=== PATIENT | female | born 1975 ===

== ENCOUNTER → 2020-10-27 09:34 | Outpatient (BNVA) | payer MEDICAID, SELFPAY | PROVIDERS: PCP Internal Medicine; Visit Provider Student in an Organized Health Care Education/Training Program | DX: Z76.89 Persons encountering health services in other specified circumstances (principal) ==

== ENCOUNTER 2021-01-18 09:14 | Outpatient (REF) | payer MEDICAID, SELFPAY ==
[2021-01-18 10:11] LABS: MANUAL DIFF FLAG NO
[2021-01-18 10:14] LABS: Basophils Absolute Auto 0.1 X10*3/uL (0.0-0.2); Basophils Percent Auto 1.1 % (0-2); Eosinophils Absolute Auto 0.2 X10*3/uL (0.0-0.4); Eosinophils Percent Auto 3.5 % (0-4); Hematocrit 34.8 % (37-47); Hemoglobin 12.4 g/dl (12.0-16.0); Imm Gran Abs Auto 0.02 X10*3/uL (0.00-0.03); Imm Gran Pct Auto 0.3 % (0.0-0.4); Lymphocytes Absolute Auto 1.9 X10*3/uL (1.2-4.9); Mean Corpuscular HGB Conc 35.6 g/dl (31.0-35.0); Mean Corpuscular Hemoglobin 26.7 pg (27.0-33.0); Mean Platelet Volume 10.6 fL (9.4-12.3); Monocytes Absolute Auto 0.5 X10*3/uL (0.1-1.2); Monocytes Percent Auto 7.6 % (2-11); Neutrophils Absolute Auto 3.8 X10*3/uL (2.0-8.3); Neutrophils Percent Auto 58.5 % (45-73); Platelet Count 312 X10*3/uL (160-400); Red Blood Count 4.64 X10*6/uL (4.20-5.50); Red Cell Distribution Width 12.8 % (11.0-16.0); White Blood Count 6.6 X10*3/uL (4.8-10.8)
[2021-01-18 10:53] LABS: Erythrocyte Sedimentation Rate 12 MM/HR (0-20)
[2021-01-18 10:56] LABS: Glucose Urine UA NEG (NEG); Leukocyte Esterase Urine NEG (NEG); Nitrite Urine NEG (NEG); PH 6.5 (5.0-8.0); Urine Blood NEG (NEG); Urine Ketones NEG (NEG); Urine Protein NEG (NEG-TRACE)
[2021-01-18 10:58] LABS: Alanine Aminotransferase 15 U/L (0-31); Albumin Level 4.5 g/dL (3.5-5.0); Alkaline Phosphatase 109 U/L (39-117); Anion Gap 10 (12-20); Aspartate Amino Transferase 17 U/L (5-31); Bilirubin Total 0.2 mg/dL (0.0-1.0); Blood Urea Nitrogen 11 mg/dL (9-16); C Reactive Protein 0.23 mg/dL (< or = 0.50); Calcium 9.6 mg/dL (8.4-10.2); Carbon Dioxide 27 mmol/L (22-29); Chloride 105 mmol/L (96-108); Estimated Glomerular Filt Rate > 60; Glucose Random 91 mg/dL (60-115); Potassium 4.2 mmol/L (3.3-5.1); Sodium 138 mmol/L (135-145); Total Protein 8.1 g/dL (6.5-8.0)
[2021-01-18 10:59] LABS: Appearance Urine CLEAR; Color Urine YELLOW
[2021-01-18 11:16] LABS: Mucus Urine 1+ /LPF; RBC Urine 0 /HPF (0); Squamous Epithelial Cell Urine 1+ /LPF; WBC Urine 0 /HPF (0-4)
[2021-01-19 14:16] LABS: Complement C3 134 mg/dL (83-193)
[2021-01-21 13:46] LABS: Anti DNA DS Antibody 7 IU/mL
== END 2021-01-18 09:15 | disposition home or self-care (01) ==
LOC: HO.LAB 09:14
PROVIDERS: PCP Internal Medicine; Visit Provider Student in an Organized Health Care Education/Training Program
DX: M32.9 Systemic lupus erythematosus, unspecified (principal)
CPT/HCPCS: 36415; 80053; 81001; 85025; 85652; 86140; 86160; 86225

== ENCOUNTER 2021-01-31 12:41 | Outpatient (REF) | payer MEDICAID, SELFPAY ==
--- NOTE | ~2021-01-31 | XR_ITS ---
EXAMINATION: XR LUMBOSACRAL SPINE CLINICAL INFORMATION: Low back pain. COMPARISON: 05/16/2015 lumbar spine radiographs. TECHNIQUE: Three views of the lumbosacral spine. FINDINGS: The vertebral bodies and posterior elements are normal. The disc spaces are preserved and the vertebral alignment is normal. The paraspinal soft tissues are normal. Surgical clips overlie the right upper quadrant. XR/XR lumbar spine 2-3V IMPRESSION: Unremarkable examination. No significant interval change.
--- NOTE | ~2021-01-31 | XR_ITS ---
EXAMINATION: XR WRIST, LEFT CLINICAL INFORMATION: SLE. COMPARISON: None TECHNIQUE: PA, lateral, and oblique views of the left wrist. FINDINGS: The bones and soft tissues are normal. No fracture. Alignment is anatomic with normal joint spaces. No erosions or abnormal soft tissue calcifications. XR/XR wrist LT 2V IMPRESSION: Unremarkable left wrist.
== END 2021-01-31 12:42 | disposition home or self-care (01) ==
LOC: HO.XRAY 12:41
PROVIDERS: PCP Internal Medicine; Visit Provider Student in an Organized Health Care Education/Training Program
DX: M32.9 Systemic lupus erythematosus, unspecified (principal); M47.816 Spondylosis without myelopathy or radiculopathy, lumbar region; G56.03 Carpal tunnel syndrome, bilateral upper limbs; Z79.899 Other long term (current) drug therapy
CPT/HCPCS: 72100; 73100; 99212

== ENCOUNTER 2021-02-06 12:07 | Outpatient (REF) | payer MEDICAID, SELFPAY ==
--- NOTE | ~2021-02-06 | MM_ITS ---
EXAMINATION: MM SCREENING DIGITAL BREAST TOMOSYNTHESIS, BILATERAL CLINICAL INFORMATION: Screening. Asymptomatic. The lifetime risk of breast cancer based on the Tyrer-Cuzick Model is 7%. COMPARISON: Mammography: 07/03/2020, 01/26/2019, 01/23/2018, 01/30/2017 TECHNIQUE: Digital breast tomosynthesis is performed in both the craniocaudal and mediolateral oblique views along with computer-aided detection (CAD). Synthesized 2D images are generated from the tomosynthesis. FINDINGS: There are scattered areas of fibroglandular density (ACR BI-RADS breast composition Category b). There are no significant masses, abnormal calcifications, or other abnormalities. Parenchymal pattern is similar studies. No developing density. No significant changes. MM/MM tomosynthesis screening BI IMPRESSION: No mammographic evidence of malignancy. ASSESSMENT: BI-RADS 1: Negative RECOMMENDATION: Routine annual mammography screening. This patient's information was entered into a reminder system with a target due date for their next mammogram.
== END 2021-02-06 12:08 | disposition home or self-care (01) ==
LOC: HO.MAMMO 12:07
PROVIDERS: Visit Provider Internal Medicine
DX: Z12.31 Encounter for screening mammogram for malignant neoplasm of breast (principal)
CPT/HCPCS: 77063; 77067

== ENCOUNTER 2021-03-06 11:05 | Outpatient (REF) | payer MEDICAID, SELFPAY ==
[2021-03-06 11:41] LABS: COVID-19 Test Positive (Negative)
== END 2021-03-06 11:06 | disposition home or self-care (01) ==
LOC: HO.LAB 11:05
PROVIDERS: Visit Provider Internal Medicine
DX: Z20.822 Contact with and (suspected) exposure to COVID-19 (principal)
CPT/HCPCS: 36415; 87635; C9803

== ENCOUNTER 2021-05-03 08:27 | Outpatient (REF) | payer MEDICAID, SELFPAY ==
[2021-05-03 09:27] LABS: Glucose Urine UA NEG (NEG); Leukocyte Esterase Urine NEG (NEG); Nitrite Urine NEG (NEG); Specific Gravity - Urine <= 1.005 (1.005-1.025); Urine Blood NEG (NEG); Urine Ketones NEG (NEG); Urine Protein NEG (NEG-TRACE)
[2021-05-03 09:29] LABS: MANUAL DIFF FLAG NO
[2021-05-03 09:31] LABS: Appearance Urine CLEAR; Color Urine YELLOW
[2021-05-03 09:34] LABS: RBC Urine 0 /HPF (0); Squamous Epithelial Cell Urine 1+ /LPF; WBC Urine 0-2 /HPF (0-4)
[2021-05-03 09:37] LABS: Basophils Absolute Auto 0.1 X10*3/uL (0.0-0.2); Basophils Percent Auto 1.1 % (0-2); Eosinophils Absolute Auto 0.3 X10*3/uL (0.0-0.4); Eosinophils Percent Auto 4.4 % (0-4); Hematocrit 33.7 % (37-47); Hemoglobin 11.8 g/dl (12.0-16.0); Imm Gran Abs Auto 0.02 X10*3/uL (0.00-0.03); Imm Gran Pct Auto 0.3 % (0.0-0.4); Lymphocytes Absolute Auto 1.6 X10*3/uL (1.2-4.9); Lymphocytes Percent Auto 23.5 % (20-40); Mean Corpuscular Hemoglobin 26.5 pg (27.0-33.0); Mean Corpuscular Volume 75.7 fL (80-98); Mean Platelet Volume 10.8 fL (9.4-12.3); Monocytes Absolute Auto 0.5 X10*3/uL (0.1-1.2); Monocytes Percent Auto 7.4 % (2-11); Neutrophils Absolute Auto 4.2 X10*3/uL (2.0-8.3); Neutrophils Percent Auto 63.3 % (45-73); Platelet Count 290 X10*3/uL (160-400); Red Blood Count 4.45 X10*6/uL (4.20-5.50); Red Cell Distribution Width 12.7 % (11.0-16.0); White Blood Count 6.6 X10*3/uL (4.8-10.8)
[2021-05-03 10:15] LABS: Alanine Aminotransferase 10 U/L (0-31); Albumin Level 4.1 g/dL (3.5-5.0); Alkaline Phosphatase 109 U/L (39-117); Anion Gap 12 (12-20); Aspartate Amino Transferase 16 U/L (5-31); Bilirubin Total 0.2 mg/dL (0.0-1.0); Blood Urea Nitrogen 9 mg/dL (9-16); C Reactive Protein 0.34 mg/dL (< or = 0.50); Calcium 9.6 mg/dL (8.4-10.2); Carbon Dioxide 25 mmol/L (22-29); Chloride 107 mmol/L (96-108); Estimated Glomerular Filt Rate > 60; Glucose Random 80 mg/dL (60-115); Potassium 4.1 mmol/L (3.3-5.1); Sodium 140 mmol/L (135-145); Total Protein 7.4 g/dL (6.5-8.0)
[2021-05-03 10:37] LABS: Erythrocyte Sedimentation Rate 12 MM/HR (0-20)
[2021-05-04 13:06] LABS: Anti DNA DS Antibody 5 IU/mL
[2021-05-05 22:03] LABS: Complement C3 46 mg/dL (83-193)
== END 2021-05-03 08:28 | disposition home or self-care (01) ==
LOC: HO.LAB 08:27
PROVIDERS: PCP Internal Medicine; Visit Provider Student in an Organized Health Care Education/Training Program
DX: M32.9 Systemic lupus erythematosus, unspecified (principal); Z79.899 Other long term (current) drug therapy
CPT/HCPCS: 36415; 80053; 81001; 85025; 85652; 86140; 86160; 86225; 99212

== ENCOUNTER 2021-09-15 10:32 | Emergency (ER) | payer MEDICAID, SELFPAY ==
--- NOTE | ~2021-09-15 | XR_ITS ---
EXAMINATION: XR RIBS, LEFT CLINICAL INFORMATION: Lifting injury 2 weeks ago. Left anterior rib pain. COMPARISON: Chest and contralateral right rib radiographs 03/11/2014 TECHNIQUE: Frontal view chest and 3 views left ribs are obtained for a total of 4 views. FINDINGS: The left ribs appear intact with no visible rib fracture or rib destructive process. Bony mineralization appears normal. There is no pneumothorax, pleural reaction, infiltrate, or effusion. The cardiac and hilar and mediastinal contours are normal. XR/XR ribs LT min 3V w CXR1V IMPRESSION: No rib fracture or rib destructive process. No pneumothorax, pleural reaction, or effusion.
[2021-09-15 11:06] VITALS: BP 139/91; PULSE 70; RESP 16; TEMP 36; O2SAT 97; BMI 24.5
--- NOTE | 2021-09-15 11:45 | ED.GENADULT ---
HPI - General Adult General Chief complaint: General Medical Stated complaint: upper lt abd & back pain Time Seen by Provider: 09/15/21 11:45 Source: patient Mode of arrival: ambulatory Limitations: no limitations History of Present Illness HPI narrative: 45 y/o female presenting to the ER with 3 days of left sided middle back pain and left lower rib pain. She denies any trauma or any recent falls. 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 [employer] and does a lot of heavy lifting and twisting, she thinks that 4 days ago she twisted wrong when holding a package. That night is when her left side started to hurt. She has been taking intermittent Motrin with no improvement. She reports the pain is worse with deep breaths and any lateral movement. She has no associated urinary symptoms. She has no nausea, vomiting, diarrhea, abdominal pain, shortness of breath, chest pain. MD complaint: Left-sided lower rib pain Onset (ago): day(s) (3) Location: chest and back Radiation: abdomen (Left lower rib, left upper quadrant) Severity: moderate Severity scale (1-10): 5 Quality: stabbing and aching Pain Consistency: intermittent Relieving factors: rest Exacerbating factors: movement and other (Deep breaths) Associated symptoms: denies other symptoms Treatments prior to arrival: none Related Data Home Medications Medication Instructions Recorded Confirmed acetaminophen 650 mg 650 mg PO Q8H PRN 10/27/20 10/27/20 tablet,extended release albuterol sulfate 90 mcg/actuation 2 puff INHALATION Q6H PRN 10/27/20 10/27/20 aerosol inhaler bupropion HCl 150 mg tablet,12 hr 150 mg PO DAILY 10/27/20 10/27/20 sustained-release clonazepam 0.5 mg tablet 0.5 mg PO BEDTIME 10/27/20 10/27/20 fluticasone propionate 110 1 puff INHALATION BID 10/27/20 10/27/20 mcg/actuation HFA aerosol inhaler (Flovent HFA) loratadine 10 mg capsule 10 mg PO DAILY 10/27/20 10/27/20 oxcarbazepine 600 mg tablet 600 mg PO BID 10/27/20 10/27/20 propranolol 20 mg tablet 20 mg PO BID 10/27/20 10/27/20 zolpidem 10 mg tablet 10 mg PO BEDTIME PRN 10/27/20 10/27/20 sertraline 50 mg tablet 50 mg PO DAILY 05/03/21 Previous Rx's Medication Instructions Recorded cyclobenzaprine 5 mg tablet 5 mg PO BEDTIME PRN #30 tab 05/03/21 hydroxychloroquine 200 mg tablet 200 mg PO DAILY #90 tab 05/03/21 (Plaquenil) cyclobenzaprine 10 mg tablet 10 mg PO TID PRN #10 tab 09/15/21 hydrocodone 5 mg-acetaminophen 325 1 tab PO Q8H PRN #6 tab 09/15/21 mg tablet ibuprofen 600 mg tablet 600 mg PO Q8H PRN #20 tab 09/15/21 lidocaine 5 % topical patch 1 patch TOPICAL DAILY #15 ea 09/15/21 Allergies Allergy/AdvReac Type Severity Reaction Status Date / Time apple [Apple] Allergy Severe THROAT Verified 05/03/21 09:11 SWELLS tree nut [Tree Nut] Allergy Severe SWELLING Verified 05/03/21 09:11 Review of Systems Review of Systems: Constitutional: No Fever, No Chills ENT/Mouth: No sore throat, No Rhinorrhea, No Swallowing Difficulty Cardiovascular: No Chest Pain, No SOB Respiratory: No Cough, No Sputum, No Wheezing, No dyspnea Gastrointestinal: No Nausea, No Vomiting, No Diarrhea, No abdominal Pain Genitourinary: No Dysuria, No Urinary Frequency, No Hematuria Musculoskeletal: No joint pain, + Myalgias Skin: No Skin Lesions, No rash Neuro: No Weakness, No Numbness Psych: No Anxiety/Panic, No Depression Heme/Lymph: No Bruising, No Lymphadenopathy PMFSH Past Medical History Medical History Lupus Social History Social History (Updated 05/03/21 @ 09:14 by Ascencion Toussaint LPN) Alcohol intake: never Patient Tobacco Use Status: Former Tobacco user Cigarettes Per Day: 7 Years Smoked: 15 e-Cigarette/Vaping Use: Never Used Use of substances other than those prescribed or required for medical reasons: No Advance Directives: No Physical Exam Vital Signs: Vital Signs: Last Vital Signs Temp 98.9 F 09/15/21 11:54 Pulse 66 09/15/21 12:11 Resp 18 09/15/21 12:11 BP 127/63 09/15/21 12:11 Pulse Ox 99 09/15/21 12:11 Body Mass Index 24.5 Appearance: Alert. Oriented X3. No acute distress. Eyes: Pupils equal, round and reactive to light. ENT: Pharynx normal. Neck: Normal inspection. Neck supple. CVS: Normal heart rate and rhythm. Pulses normal. Respiratory: No respiratory distress. Breath sounds normal. Anterior chest wall lower anterior ribs are tender with associated soft tissue tenderness no ecchymosis, no crepitus Abdomen: Soft and nontender. +BS x4. No left upper quadrant tenderness, no splenomegaly Back: Normal inspection, left-sided thoracic soft tissue tenderness throughout, no ecchymosis, no CVA tenderness. Skin: Skin warm and dry. Normal skin color. Normal skin turgor. No rashes. Extremities: No lower extremity edema. Neuro: Oriented X 3. Grossly normal, nonfocal Course Course Course Narrative: 45-year-old female presenting with left-sided thoracic back pain that radiates around to her left anterior lower ribs. Pain is worse with movement and deep breath. She states the pain started after lifting and twisting while working at [employer]. She is not short of breath, or having any urinary symptoms. No palpable splenomegaly on exam. Will start with x-ray of the chest and ribs, and treat for probable muscular pain with NSAID, Flexeril, and Lidoderm patch. Will reassess. Reevaluation(s) Reevaluation #1: Pain is slightly improved. Her x-rays are unremarkable. Her pain and tenderness is most likely due to muscle strain and spasm. Will continue treatment with NSAID, Flexeril, and Lidoderm patches. Will give short course of low-dose narcotic for pain that is disrupting her sleep. She will follow-up with her primary care doctor. Work note provided per request. Patient stable for discharge home with supportive care and outpatient follow-up. Discharge Plan Discharge Clinical Impression: Acute left-sided thoracic back pain, Muscle spasm Patient Disposition: Home, Self-Care Instructions: Muscle Spasm (ED), Back Pain (ED) Additional Instructions: Your x-rays today were normal. Your pain is most likely due to muscle strain and spasm. No bending, lifting or twisting. Use ice several times per day for 20 minutes at a time for the next 48 hours and then change to heat. Take medications as prescribed to help with pain and discomfort. Follow up with your Primary Care Doctor this week. If your pain worsens or if you develop any new or worsening symptoms call 911 or come back to the ER for further evaluation. Prescriptions: New cyclobenzaprine 10 mg tablet 10 mg PO TID PRN (Reason: muscle spasm) Qty: 10 RF: 0 lidocaine 5 % adhesive patch,medicated 1 patch topical DAILY Qty: 15 RF: 0 ibuprofen 600 mg tablet 600 mg PO Q8H PRN (Reason: pain) Qty: 20 RF: 0 hydrocodone-acetaminophen 5-325 mg tablet 1 tab PO Q8H PRN (Reason: pain) Qty: 6 RF: 0 No Action propranolol 20 mg tablet 20 mg PO BID RF: 0 Flovent HFA 110 mcg/actuation HFA aerosol inhaler 1 puff inhalation BID RF: 0 clonazepam 0.5 mg tablet 0.5 mg PO BEDTIME RF: 0 oxcarbazepine 600 mg tablet 600 mg PO BID RF: 0 albuterol sulfate 90 mcg/actuation HFA aerosol inhaler 2 puff inhalation Q6H PRNRF: 0 loratadine 10 mg capsule 10 mg PO DAILY RF: 0 zolpidem 10 mg tablet 10 mg PO BEDTIME PRNRF: 0 bupropion HCl 150 mg tablet sustained-release 12 hr 150 mg PO DAILY RF: 0 acetaminophen 650 mg tablet extended release 650 mg PO Q8H PRNRF: 0 sertraline 50 mg tablet 50 mg PO DAILY RF: 0 hydroxychloroquine [Plaquenil] 200 mg tablet 200 mg PO DAILY Qty: 90 RF: 1 cyclobenzaprine 5 mg tablet 5 mg PO BEDTIME PRN (Reason: muscle spasm) Qty: 30 RF: 1 Stand Alone Forms: Work/School Release
[2021-09-15 11:54] VITALS: BP 135/70; PULSE 65; RESP 18; TEMP 37.2; O2SAT 98
[2021-09-15 12:11] VITALS: BP 127/63; PULSE 66; RESP 18; O2SAT 99
[2021-09-15] MEDS: Lidocaine 4 % Patch ADH..PATCH 1 PATCH TRANSDERMA (12:14)
[2021-09-15] MEDS: Cyclobenzaprine HCl 10 MG TABLET PO (12:14)
[2021-09-15] MEDS: Ibuprofen 600 MG TABLET PO (12:14)
--- NOTE | 2021-09-15 12:15 | PC.NURSE ---
left lower rib [ain. worse with movement. ls cta. unlabored resp.
== END 2021-09-15 13:05 | disposition home or self-care (01) ==
PROVIDERS: Emergency Provider Emergency Medicine; PCP Internal Medicine
DX: M54.6 Pain in thoracic spine (principal); M62.830 Muscle spasm of back; R07.81 Pleurodynia
CPT/HCPCS: 71101; 99284

== ENCOUNTER 2022-01-24 08:38 | Outpatient (REF) | payer MEDICAID, SELFPAY ==
[2022-01-24 09:05] LABS: MANUAL DIFF FLAG NO
[2022-01-24 09:24] LABS: Basophils Absolute Auto 0.1 X10*3/uL (0.0-0.2); Eosinophils Absolute Auto 0.1 X10*3/uL (0.0-0.4); Eosinophils Percent Auto 2.9 % (0-4); Hemoglobin 11.2 g/dl (12.0-16.0); Imm Gran Abs Auto 0.01 X10*3/uL (0.00-0.03); Imm Gran Pct Auto 0.2 % (0.0-0.4); Lymphocytes Absolute Auto 1.8 X10*3/uL (1.2-4.9); Lymphocytes Percent Auto 37.9 % (20-40); Mean Corpuscular Hemoglobin 26.6 pg (27.0-33.0); Mean Platelet Volume 10.4 fL (9.4-12.3); Monocytes Absolute Auto 0.2 X10*3/uL (0.1-1.2); Monocytes Percent Auto 4.6 % (2-11); Neutrophils Absolute Auto 2.6 x10*3/uL (2.0-8.3); Neutrophils Percent Auto 53.4 % (45-73); Platelet Count 249 X10*3/uL (160-400); Red Blood Count 4.21 X10*6/uL (4.20-5.50); Red Cell Distribution Width 12.7 % (11.0-16.0); White Blood Count 4.8 X10*3/uL (4.8-10.8)
[2022-01-24 10:27] LABS: Alanine Aminotransferase 7 U/L (0-31); Albumin Level 4.3 g/dL (3.5-5.0); Alkaline Phosphatase 93 U/L (39-117); Anion Gap 11 (12-20); Aspartate Amino Transferase 17 U/L (5-31); Bilirubin Total 0.3 mg/dL (0.0-1.0); Blood Urea Nitrogen 15 mg/dL (9-16); Calcium 9.1 mg/dL (8.4-10.2); Carbon Dioxide 27 mmol/L (22-29); Chloride 104 mmol/L (96-108); Cholesterol 148 mg/dL; Estimated Glomerular Filt Rate > 60; Glucose Random 78 mg/dL (60-115); HDL Cholesterol 43 mg/dL; LDL Cholesterol Calculated 91 mg/dl; Potassium 4.1 mmol/L (3.3-5.1); Sodium 138 mmol/L (135-145); Total Protein 7.5 g/dL (6.5-8.0); Triglycerides 73 mg/dL
[2022-01-24 10:49] LABS: Creatinine Urine 239.24 mg/dL; Protein/Creatinine Ratio, Ur 0.07 (<0.2); Total Protein Urine Random 16 mg/dL (<12)
== END 2022-01-24 08:39 | disposition home or self-care (01) ==
LOC: HO.LAB 08:38
PROVIDERS: PCP Internal Medicine; Visit Provider Internal Medicine
DX: Z00.00 Encounter for general adult medical examination without abnormal findings (principal); F31.9 Bipolar disorder, unspecified; M32.9 Systemic lupus erythematosus, unspecified; Z90.710 Acquired absence of both cervix and uterus
CPT/HCPCS: 36415; 80053; 80061; 84156; 85025

== ENCOUNTER 2022-03-05 14:20 | Outpatient (REF) | payer MEDICAID, SELFPAY ==
--- NOTE | ~2022-03-05 | MM_ITS ---
EXAMINATION: MM SCREENING DIGITAL BREAST TOMOSYNTHESIS, BILATERAL CLINICAL INFORMATION: Screening. Asymptomatic. The lifetime risk of breast cancer based on the Tyrer-Cuzick Model is 7%. COMPARISON: Mammography: 02/06/2021, 02/01/2020, 01/26/2019 TECHNIQUE: Digital breast tomosynthesis is performed in both the craniocaudal and mediolateral oblique views along with computer-aided detection (CAD). Synthesized 2D images are generated from the tomosynthesis. FINDINGS: There are scattered areas of fibroglandular density (ACR BI-RADS breast composition Category b). There are no significant masses, abnormal calcifications, or other abnormalities. There is no architectural abnormality or developing density or significant changes from prior studies. MM/MM tomosynthesis screening BI IMPRESSION: No mammographic evidence of malignancy. ASSESSMENT: BI-RADS 1: Negative RECOMMENDATION: Routine annual mammography screening. This patient's information was entered into a reminder system with a target due date for their next mammogram.
== END 2022-03-05 14:21 | disposition home or self-care (01) ==
LOC: HO.MAMMO 14:20
PROVIDERS: Visit Provider Internal Medicine
DX: Z12.31 Encounter for screening mammogram for malignant neoplasm of breast (principal)
CPT/HCPCS: 77063; 77067

== ENCOUNTER 2022-05-10 08:46 | Emergency (ER) | payer MEDICAID, SELFPAY ==
[2022-05-10 08:48] VITALS: BP 144/84; PULSE 78; RESP 14; TEMP 35.9; O2SAT 100; BMI 20.7
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
[2022-05-10 09:41] LABS: MANUAL DIFF FLAG NO
[2022-05-10 09:45] LABS: Appearance Urine HAZY; Basophils Absolute Auto 0.1 X10*3/uL (0.0-0.2); Basophils Percent Auto 0.9 % (0-2); Color Urine YELLOW; Eosinophils Absolute Auto 0.1 X10*3/uL (0.0-0.4); Eosinophils Percent Auto 1.7 % (0-4); Glucose Urine UA NEG (NEG); Hematocrit 33.2 % (37.0-47.0); Hemoglobin 11.7 g/dl (12.0-16.0); Imm Gran Abs Auto 0.01 X10*3/uL (0.00-0.03); Imm Gran Pct Auto 0.2 % (0.0-0.4); Leukocyte Esterase Urine NEG (NEG); Lymphocytes Absolute Auto 1.8 X10*3/uL (1.2-4.9); Lymphocytes Percent Auto 27.7 % (20-40); Mean Corpuscular HGB Conc 35.2 g/dl (31.0-35.0); Mean Corpuscular Hemoglobin 26.2 pg (27.0-33.0); Mean Corpuscular Volume 74.4 fL (80.0-98.0); Monocytes Absolute Auto 0.7 X10*3/uL (0.1-1.2); Monocytes Percent Auto 10.1 % (2-11); Neutrophils Percent Auto 59.4 % (45-73); Nitrite Urine NEG (NEG); Platelet Count 267 X10*3/uL (160-400); Red Blood Count 4.46 X10*6/uL (4.20-5.50); Red Cell Distribution Width 12.8 % (11.0-16.0); Specific Gravity - Urine 1.015 (1.005-1.025); Urine Blood NEG (NEG); Urine Ketones NEG (NEG); Urine Protein NEG (NEG-TRACE); White Blood Count 6.7 X10*3/uL (4.8-10.8)
[2022-05-10 09:46] LABS: UPreg QC Valid YES; Urine Pregnancy NEGATIVE (NEGATIVE)
[2022-05-10 09:58] LABS: COVID-19 Test Negative (Negative)
[2022-05-10] MEDS: Ketorolac Tromethamine 15 MG/ML VIAL IVPUSH (09:58)
[2022-05-10] MEDS: 0.9 % Sodium Chloride 1,000 ML 999 ML IV (09:58)
[2022-05-10 09:59] LABS: C Reactive Protein 0.23 mg/dL (< or = 0.50)
[2022-05-10] MEDS: diphenhydrAMINE HCL 50 MG/ML VIAL 25 MG IVPUSH (09:59)
[2022-05-10 10:01] LABS: Alanine Aminotransferase 12 U/L (0-31); Albumin Level 4.4 g/dL (3.5-5.0); Alkaline Phosphatase 80 U/L (39-117); Anion Gap 11 (12-20); Aspartate Amino Transferase 19 U/L (5-31); Bilirubin Total 0.4 mg/dL (0.0-1.0); Blood Urea Nitrogen 14 mg/dL (9-16); Calcium 9.4 mg/dL (8.4-10.2); Carbon Dioxide 26 mmol/L (22-29); Chloride 106 mmol/L (96-108); Creatinine Clr Calc Pharmacy 63.8; Estimated Glomerular Filt Rate > 60; Glucose Random 94 mg/dL (60-115); Potassium 3.6 mmol/L (3.3-5.1); Sodium 139 mmol/L (135-145); Total Protein 7.8 g/dL (6.5-8.0)
[2022-05-10] MEDS: Metoclopramide HCl 10 MG/2 ML VIAL IVPUSH (10:01)
[2022-05-10 10:21] LABS: Erythrocyte Sedimentation Rate 8 MM/HR (0-20)
[2022-05-10 10:22] VITALS: BP 109/61; PULSE 67; RESP 16; TEMP 36.9; O2SAT 98
== END 2022-05-10 11:27 | disposition home or self-care (01) ==
PROVIDERS: Nurse Practitioner Family; Emergency Provider Student in an Organized Health Care Education/Training Program; PCP Internal Medicine
DX: R51.9 Headache, unspecified (principal); Z20.822 Contact with and (suspected) exposure to COVID-19; R11.2 Nausea with vomiting, unspecified; Z87.891 Personal history of nicotine dependence; M32.9 Systemic lupus erythematosus, unspecified
CPT/HCPCS: 36415; 70450; 72125; 80053; 81003; 81025; 85025; 85652; 86140; 87635; 96361; 96374; 96375; 99284; J1200; J1885; J2270; J2765

== ENCOUNTER 2022-05-10 18:06 | Emergency (ER) | payer MEDICAID, SELFPAY ==
--- NOTE | ~2022-05-10 | CT_ITS ---
EXAMINATION: NONCONTRAST HEAD CT NONCONTRAST CERVICAL SPINE CT INDICATION INFORMATION: Head trauma with migraines and severe headaches. COMPARISON: None TECHNIQUE: Separate noncontrast CT examinations of the head and cervical spine were performed. Coronal and sagittal images were created for each examination at the technologist workstation. This CT examination was performed using dose optimization techniques as appropriate, variously including the following: *Automated exposure control *Adjustment of mA and/or kV according to patient size (this includes techniques or standardized protocols for targeted exams where dose is matched to indication/reason for exam; i.e. extremities or head) *Use of iterative reconstruction technique DLP: 801 mGy-cm FINDINGS: HEAD: No intra or extra-axial fluid collection, hemorrhage, or mass. No ventriculomegaly. No midline shift or herniation. Basal cisterns are patent. Colbert-white matter differentiation is maintained. No territorial encephalomalacia. No significant volume loss. There is no abnormal attenuation within the brain parenchyma. No calvarial fracture or soft tissue abnormality. The mastoid air cells and visualized portions of the paranasal sinuses are well aerated. CERVICAL SPINE: Alignment: Straightening of the normal cervical lordosis. No subluxation. Vertebra: No acute fracture. No prevertebral soft tissue swelling. Degenerative disc disease: Mild disc degenerative change at C5-C6 and C6-C7 with minimal disc height loss and endplate proliferative change. Other findings: No cervical lymphadenopathy. Grossly unremarkable thyroid gland. Fatty atrophy of the submandibular glands. Visualized lung apices grossly clear. CT/CT cervical spine wo con IMPRESSION: 1. No intracranial hemorrhage, mass, or other acute intracranial abnormality. 2. No traumatic subluxation or acute cervical spine fracture.
--- NOTE | ~2022-05-10 | CT_ITS ---
EXAMINATION: NONCONTRAST HEAD CT NONCONTRAST CERVICAL SPINE CT INDICATION INFORMATION: Head trauma with migraines and severe headaches. COMPARISON: None TECHNIQUE: Separate noncontrast CT examinations of the head and cervical spine were performed. Coronal and sagittal images were created for each examination at the technologist workstation. This CT examination was performed using dose optimization techniques as appropriate, variously including the following: *Automated exposure control *Adjustment of mA and/or kV according to patient size (this includes techniques or standardized protocols for targeted exams where dose is matched to indication/reason for exam; i.e. extremities or head) *Use of iterative reconstruction technique DLP: 801 mGy-cm FINDINGS: HEAD: No intra or extra-axial fluid collection, hemorrhage, or mass. No ventriculomegaly. No midline shift or herniation. Basal cisterns are patent. Colbert-white matter differentiation is maintained. No territorial encephalomalacia. No significant volume loss. There is no abnormal attenuation within the brain parenchyma. No calvarial fracture or soft tissue abnormality. The mastoid air cells and visualized portions of the paranasal sinuses are well aerated. CERVICAL SPINE: Alignment: Straightening of the normal cervical lordosis. No subluxation. Vertebra: No acute fracture. No prevertebral soft tissue swelling. Degenerative disc disease: Mild disc degenerative change at C5-C6 and C6-C7 with minimal disc height loss and endplate proliferative change. Other findings: No cervical lymphadenopathy. Grossly unremarkable thyroid gland. Fatty atrophy of the submandibular glands. Visualized lung apices grossly clear. CT/CT head/brain wo con IMPRESSION: 1. No intracranial hemorrhage, mass, or other acute intracranial abnormality. 2. No traumatic subluxation or acute cervical spine fracture.
[2022-05-10 18:10] VITALS: BP 146/78; PULSE 91; RESP 16; TEMP 36.8; O2SAT 100; BMI 20.4
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
[2022-05-10] MEDS: Ketorolac Tromethamine 15 MG/ML VIAL IVPUSH (19:21)
[2022-05-10] MEDS: diphenhydrAMINE HCL 50 MG/ML VIAL IVPUSH (19:21)
[2022-05-10] MEDS: Metoclopramide HCl 10 MG/2 ML VIAL IVPUSH (19:21)
[2022-05-10] MEDS: 0.9 % Sodium Chloride 1,000 ML 999 ML IV (19:26)
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
[2022-05-10] MEDS: Morphine Sulfate 4 MG/ML CARTRIDGE IVPUSH (20:51)
[2022-05-10 20:53] VITALS: BP 132/76; PULSE 79; RESP 16; O2SAT 100
== END 2022-05-10 21:56 | disposition home or self-care (01) ==
PROVIDERS: Emergency Provider Emergency Medicine Emergency Medical Services; PCP Internal Medicine
DX: R51.9 Headache, unspecified (principal); M54.2 Cervicalgia; M32.9 Systemic lupus erythematosus, unspecified
CPT/HCPCS: 70450; 72125; 96361; 96374; 96375; 99284; J1200; J1885; J2270; J2765

== ENCOUNTER 2022-05-13 06:42 | Emergency (ER) | payer MEDICAID, SELFPAY ==
--- NOTE | ~2022-05-13 | CT_ITS ---
EXAMINATION: CT HEAD WITHOUT CONTRAST CLINICAL INFORMATION: Severe headache. COMPARISON: 05/10/2022. TECHNIQUE: Contiguous axial imaging was performed from the skull base to vertex without intravenous administration of contrast. This CT examination was performed using dose optimization techniques as appropriate, variously including the following: *Automated exposure control *Adjustment of mA and/or kV according to patient size (this includes techniques or standardized protocols for targeted exams where dose is matched to indication/reason for exam; i.e. extremities or head) *Use of iterative reconstruction technique DLP: 600 mGy-cm FINDINGS: The brain parenchyma has normal attenuation. The tomas-white matter differentiation is well preserved. No evidence of an acute major vascular territory infarction. No intracranial hemorrhage, extra-axial fluid collection, focal mass effect or midline shift. The ventricles have normal size and configuration; no hydrocephalus. The brainstem and cerebellum have a normal appearance. The cerebellar tonsils are in normal position. The calvarium is intact. There is a mucus retention cyst at the floor of the left maxillary sinus. Otherwise, the visualized paranasal sinuses, mastoid air cells and middle ear cavities are well aerated. The orbits and globes are unremarkable. The temporomandibular joints are normal. CT/CT head/brain wo con IMPRESSION: No intracranial hemorrhage or other acute intracranial pathology compared to 05/10/2022.
[2022-05-13 06:45] VITALS: BP 157/83; PULSE 80; RESP 16; TEMP 36.6; O2SAT 100; BMI 19.8
--- NOTE | 2022-05-13 08:11 | ED_ITS ---
HPI - General Adult General Chief complaint: Headache Stated complaint: migraine x1 week Time Seen by Provider: 05/13/22 08:11 Source: patient Mode of arrival: ambulatory Limitations: no limitations History of Present Illness HPI narrative: Patient is a 46 year old female presenting to the emergency department today with a headache. Patient states that she has had this headache for a few days now and has been seen for it previously. Patient states that she has a history of migraines but this is much worse then a usual migraine. Patient states that she is nauseous. Patient denies any dizziness, lightheadedness, abdominal pain, vomiting, fever, chills, blurry vision, double vision, loss of vision, chest pain, difficulty breathing, shortness of breath, back pain, night sweats, pain with urination, increased urinary frequency, increased urinary urgency, blood in her urine or stool, syncope or a near syncopal episode, recent trauma or falls, bowel incontinence, bladder incontinence, bowel retention, bladder retention, or any other complaints at this time. Onset (ago): day(s) Location: head Radiation: non-radiation Severity: mild Severity scale (1-10): 4 Quality: dull Pain Consistency: constant Relieving factors: none Exacerbating factors: none Associated symptoms: nausea/vomiting Treatments prior to arrival: none Related Data Home Medications Medication Instructions Recorded Confirmed acetaminophen 650 mg 650 mg PO Q8H PRN 10/27/20 10/27/20 tablet,extended release albuterol sulfate 90 mcg/actuation 2 puff inhalation Q6H PRN 10/27/20 10/27/20 aerosol inhaler bupropion HCl 150 mg tablet,12 hr 150 mg PO DAILY 10/27/20 10/27/20 sustained-release clonazepam 0.5 mg tablet 0.5 mg PO BEDTIME 10/27/20 10/27/20 fluticasone propionate 110 1 puff inhalation BID 10/27/20 10/27/20 mcg/actuation HFA aerosol inhaler (Flovent HFA) loratadine 10 mg capsule 10 mg PO DAILY 10/27/20 10/27/20 oxcarbazepine 600 mg tablet 600 mg PO BID 10/27/20 10/27/20 propranolol 20 mg tablet 20 mg PO BID 10/27/20 10/27/20 zolpidem 10 mg tablet 10 mg PO BEDTIME PRN 10/27/20 10/27/20 sertraline 50 mg tablet 50 mg PO DAILY 05/03/21 Previous Rx's Medication Instructions Recorded cyclobenzaprine 5 mg tablet 5 mg PO BEDTIME PRN muscle spasm 05/03/21 #30 tabs hydroxychloroquine 200 mg tablet 200 mg PO DAILY #90 tabs 05/03/21 (Plaquenil) cyclobenzaprine 10 mg tablet 10 mg PO TID PRN muscle spasm #10 09/15/21 tabs hydrocodone 5 mg-acetaminophen 325 1 tab PO Q8H PRN pain #6 tabs 09/15/21 mg tablet ibuprofen 600 mg tablet 600 mg PO Q8H PRN pain #20 tabs 09/15/21 lidocaine 5 % topical patch 1 patch topical DAILY #15 ea 09/15/21 metoclopramide HCl 10 mg tablet 10 mg PO Q6H PRN nausea and 05/10/22 (Reglan) vomiting #14 tabs ketorolac 10 mg tablet 10 mg PO Q8H PRN pain 3 days #7 05/13/22 tabs Allergies Allergy/AdvReac Type Severity Reaction Status Date / Time apple [Apple] Allergy Severe THROAT Verified 05/03/21 09:11 SWELLS tree nut [Tree Nut] Allergy Severe SWELLING Verified 05/03/21 09:11 Review of Systems Constitutional: Constitutional: Reports no additional constitutional complaints, Denies chills, Denies fever(s), Reports headache(s) and Denies night sweats Eyes: Eyes: Reports no additional eye complaints, Denies blurry vision, Denies change in vision, Denies diplopia, Denies eye discharge, Denies loss of vision and Denies eye pain ENT: Denies dizziness and Reports headache(s) Cardiovascular: Cardiovascular: Reports no additional cardiovascular complaints, Denies chest pain, Denies lightheadedness, Denies Loss of Consciousness and Denies dyspnea Respiratory: Respiratory: Reports no additional respiratory complaints and Denies dyspnea Gastrointestinal: Gastrointestinal: Reports no additional gastrointestinal complaints, Denies abdominal pain, Denies melena, Denies hematochezia, Denies change in bowel habits, Denies change in stool character and Reports nausea Genitourinary: Genitourinary: Denies hematuria, Denies urinary frequency, Denies dysuria, Denies urinary incontinence, Denies urinary hesitancy and Denies urinary urgency Musculoskeletal: Musculoskeletal: Reports no additional musculoskeletal complaints, Denies numbness and Denies tingling Neurologic: Denies dizziness, Reports headache(s), Denies loss of vision, Denies numbness and Denies tingling Psychiatric: Psychiatric: Reports no additional psychiatric complaints Endocrine: Endocrine: Reports no additional endocrine complaints Hematologic/Lymphatic: Hematologic/Lymphatic: Reports no additional hematologic/lymphatic complaints Allergic/Immunologic: Allergic/Immunologic: Reports no additional allergic/immunologic complaints PMFSH Past Medical History Attestation statement: The following information was validated with the patient. Source: old records reviewed Surgical History History of hysterectomy Social History Social History Alcohol intake: never Patient Tobacco Use Status: Former Tobacco user Cigarettes Per Day: 7 Years Smoked: 15 e-Cigarette/Vaping Use: Never Used Use of substances other than those prescribed or required for medical reasons: No Advance Directives: No Advance Directives Information Provided: No Physical Exam ED Vital Signs: Vital Signs - 24 hr 05/13/22 06:45 05/13/22 08:40 05/13/22 10:04 Temperature 97.9 F 98.4 F Pulse Rate 80 66 68 Respiratory Rate 16 20 20 Blood Pressure 157/83 H 151/82 H 149/87 H Pulse Oximetry 100 100 100 Oxygen Delivery Method Room Air Room Air Room Air 05/13/22 10:32 05/13/22 10:56 05/13/22 11:41 Temperature Pulse Rate 73 70 79 Respiratory Rate 18 18 Blood Pressure 133/74 119/72 124/68 Pulse Oximetry 99 100 Oxygen Delivery Method Room Air Room Air BMI result Body Mass Index 19.8 Const General: cooperative, no acute distress, alert and awake Nutritional Appearance: well nourished Orientation/consciousness: patient oriented x3 Limitations: no limitations HENMT Head: Yes normal to inspection and Yes atraumatic Ears: hearing grossly normal bilaterally and external ears normal General nose exam: Normal external nose present, no nasal discharge noted and no epistaxis Face and sinus: Yes normal facial exam, No abrasion and No laceration Mouth: Normal oral and palatal mucosa present, no drooling and no muffled voice Eyes General: appearance normal, both eyes and all related structures Periorbital: periorbital findings normal Eyelids: Yes eyelids normal Conjunctivae: conjunctivae normal Pupils: Equal, round and reactive pupils present EOM: EOMs intact bilaterally Neck Neck: Yes normal visual inspection, Yes full ROM and Yes no lymphadenopathy Chest Chest palpation & inspection: normal inspection of the chest Resp Effort & Inspection: normal respiratory effort and able to speak in complete sentences Auscultation: clear to auscultation bilaterally Cardio Rate: regular rate Rhythm: regular rhythm GI Inspection: Yes normal to inspection Neuro General: patient oriented x3 and moves all extremities Cranial nerves: Yes Equal, round and reactive pupils present Cognition (Neuro): normal cognition Motor exam (neuro): 5/5 motor strength present throughout Sensory Exam: Normal double simultaneous stimulation for sensation Coordination: [id number] test normal Extrem General: Yes normal to inspection, Yes full ROM and Yes capillary refill normal Psych Appearance: grossly normal Mental Status: mental status grossly normal Affect: normal affect Attitude: cooperative Thought process: Normal thought process present Thought content: Normal thought content present Insight: Good insight present (Psych) Procedures Lumbar Puncture Time Out Performed: Yes Patient Position: upright Skin Prep: Povidone-Iodine 1% Local Anesthetic: lidocaine 1% Amount of anesthesia used (mL): 5 Spinal Needle Gauge: 20G Interspace Used: L4-L5 Fluid Initially Obtained: clear Complications: none Medical Decision Making MDM Narrative Medical decision making narrative: Patient is a 46 year old female presenting to the emergency department today with a headache. Patient's physical exam showed an obviously uncomfortable individual but was otherwise unremarkable. Patient's blood work showed a slightly eleveted white blood cell count but a normal ESR and CRP. Patient's head CT showed no acute process. Based on the continued headache after so many days, multiple ED visits, and an elevated WBC count it was determined that the patient have a lumbar puncture performed. I discussed this at length with the patient who agreed and signed the appropriate consent form. My attending physician, Dr. Eid and I performed the lumbar puncture, without incident. CSF evaluation showed a normal glucose, a slightly elevated protein, but low WBC count of 5. I did not suspect the patient to have meningitis after interpretation of the CSF. I explained my physical exam findings as well as all test results to the patient. I answered all questions asked by the patient. Etta ent received IV Morphine, Toradol, and Benadryl which she stated helped her pain significantly. I stressed the importance of the patient taking her medication as prescribed. I stressed the importance of the patient following up with her primary care provider. I stressed the importance of the patient returning to the emergency department immediately if her symptoms were to worsen or if she were to develop any dizziness, shortness of breath, difficulty breathing, chest pain, blurry vision, loss of vision, nausea, vomiting, abdominal pain, fever, chills, back pain, or any other complaints. Patient verbalized agreement and understanding with this treatment plan and discharge. Differential Diagnosis Differential Diagnosis: migraine, headache Medical Records Medical records reviewed: Yes I reviewed the patient's medical records. Lab Data Lab results reviewed: Yes I reviewed the patient's lab results. Result diagrams: 05/13/22 08:55 05/13/22 08:52 Labs: Lab Results 05/13/22 05/13/22 05/13/22 Range/Units 08:52 08:52 08:54 WBC (4.8-10.8) X10*3/uL RBC (4.20-5.50) X10*6/uL Hgb (12.0-16.0) g/dl Hct (37.0-47.0) % MCV (80.0-98.0) fL MCH (27.0-33.0) pg MCHC (31.0-35.0) g/dl RDW (11.0-16.0) % Plt Count (160-400) X10*3/uL MPV (9.4-12.3) fL Immature Gran % (Auto) (0.0-0.4) % Neut % (Auto) (45-73) % Lymph % (Auto) (20-40) % [place] % (Auto) (2-11) % Eos % (Auto) (0-4) % Baso % (Auto) (0-2) % Lymph # (Auto) (1.2-4.9) X10*3/uL [place] # (Auto) (0.1-1.2) X10*3/uL Eos # (Auto) (0.0-0.4) X10*3/uL Baso # (Auto) (0.0-0.2) X10*3/uL Abs Immat Gran (auto) (0.00-0.03) X10*3/uL Absolute Neuts (auto) (2.0-8.3) x10*3/uL Absolute Nucleated RBC (0.0-0.012) X10*3/uL Nucleated RBC % (auto) (0.0-0.2) /100WBC ESR 13 (0-20) MM/HR Sodium 139 (135-145) mmol/L Potassium 3.3 (3.3-5.1) mmol/L Chloride 105 (96-108) mmol/L Carbon Dioxide 24 (22-29) mmol/L Anion Gap 13 (12-20) BUN 11 (9-16) mg/dL Creatinine 0.84 (0.5-1.4) mg/dL Estim Creat Clear Calc 63.6 Estimated GFR > 60 Random Glucose 97 (60-115) mg/dL Calcium 9.4 (8.4-10.2) mg/dL Magnesium 1.8 (1.6-2.6) mg/dL Total Bilirubin 0.3 (0.0-1.0) mg/dL AST 57 H (5-31) U/L ALT 123 H (0-31) U/L Alkaline Phosphatase 102 D (39-117) U/L C-Reactive Protein 0.31 (< or = 0.50) mg/dL Total Protein 8.2 H (6.5-8.0) g/dL Albumin 4.5 (3.5-5.0) g/dL CSF Tube Number CSF Volume ML CSF Appearance CSF Color CSF WBC MM*3 CSF RBC MM*3 CSF Neutrophils % CSF Lymphocytes % CSF Monocytes % % CSF Appearance (b) CSF Glucose mg/dL CSF Total Protein (15-45) mg/dL CSF C.neoform/gat PCR (Not Detect.) CSF CMV DNA (PCR) (Not Detect.) CSF Enterovirus (PCR) (Not Detect.) CSF E. coli K1 (PCR) (Not Detect.) CSF H. influenzae (PCR) (Not Detect.) CSF HSV I (PCR) (Not Detect.) CSF HSV II (PCR) (Not Detect.) CSF L.monocytogenes PCR (Not Detect.) CSF N. meningitidis PCR (Not Detect.) CSF Parechovirus (PCR) (Not Detect.) CSF S. agalactiae (PCR) (Not Detect.) CSF S. pneumoniae (PCR) (Not Detect.) CSF VZV (PCR) (Not Detect.) COVID-19 ([facility]) (Negative) COVID-19 Clin Com Influenza Type A (CAROL) Negative (Negative) Influenza Type B (CAROL) Negative (Negative) Influenza A & B Note See Note HHV-6 (PCR) (Not Detect.) 05/13/22 05/13/22 05/13/22 Range/Units 08:54 08:55 10:55 WBC 11.0 H (4.8-10.8) X10*3/uL RBC 4.47 (4.20-5.50) X10*6/uL Hgb 12.0 (12.0-16.0) g/dl Hct 33.5 L (37.0-47.0) % MCV 74.9 L (80.0-98.0) fL MCH 26.8 L (27.0-33.0) pg MCHC 35.8 H (31.0-35.0) g/dl RDW 12.8 (11.0-16.0) % Plt Count 288 (160-400) X10*3/uL MPV 10.4 (9.4-12.3) fL Immature Gran % (Auto) 0.4 (0.0-0.4) % Neut % (Auto) 81.7 H (45-73) % Lymph % (Auto) 13.4 L (20-40) % [place] % (Auto) 3.0 (2-11) % Eos % (Auto) 0.8 (0-4) % Baso % (Auto) 0.7 (0-2) % Lymph # (Auto) 1.5 (1.2-4.9) X10*3/uL [place] # (Auto) 0.3 (0.1-1.2) X10*3/uL Eos # (Auto) 0.1 (0.0-0.4) X10*3/uL Baso # (Auto) 0.1 (0.0-0.2) X10*3/uL Abs Immat Gran (auto) 0.04 H (0.00-0.03) X10*3/uL Absolute Neuts (auto) 9.0 H (2.0-8.3) x10*3/uL Absolute Nucleated RBC 0.000 (0.0-0.012) X10*3/uL Nucleated RBC % (auto) 0.0 (0.0-0.2) /100WBC ESR (0-20) MM/HR Sodium (135-145) mmol/L Potassium (3.3-5.1) mmol/L Chloride (96-108) mmol/L Carbon Dioxide (22-29) mmol/L Anion Gap (12-20) BUN (9-16) mg/dL Creatinine (0.5-1.4) mg/dL Estim Creat Clear Calc Estimated GFR Random Glucose (60-115) mg/dL Calcium (8.4-10.2) mg/dL Magnesium (1.6-2.6) mg/dL Total Bilirubin (0.0-1.0) mg/dL AST (5-31) U/L ALT (0-31) U/L Alkaline Phosphatase (39-117) U/L C-Reactive Protein (< or = 0.50) mg/dL Total Protein (6.5-8.0) g/dL Albumin (3.5-5.0) g/dL CSF Tube Number CSF Volume ML CSF Appearance CSF Color CSF WBC MM*3 CSF RBC MM*3 CSF Neutrophils % CSF Lymphocytes % CSF Monocytes % % CSF Appearance (b) CSF Glucose mg/dL CSF Total Protein (15-45) mg/dL CSF C.neoform/gat PCR Not Detected (Not Detect.) CSF CMV DNA (PCR) Not Detected (Not Detect.) CSF Enterovirus (PCR) Not Detected (Not Detect.) CSF E. coli K1 (PCR) Not Detected (Not Detect.) CSF H. influenzae (PCR) Not Detected (Not Detect.) CSF HSV I (PCR) Not Detected (Not Detect.) CSF HSV II (PCR) Not Detected (Not Detect.) CSF L.monocytogenes PCR Not Detected (Not Detect.) CSF N. meningitidis PCR Not Detected (Not Detect.) CSF Parechovirus (PCR) Not Detected (Not Detect.) CSF S. agalactiae (PCR) Not Detected (Not Detect.) CSF S. pneumoniae (PCR) Not Detected (Not Detect.) CSF VZV (PCR) Not Detected (Not Detect.) COVID-19 ([facility]) Negative (Negative) COVID-19 Clin Com See Note Influenza Type A (CAROL) (Negative) Influenza Type B (CAROL) (Negative) Influenza A & B Note HHV-6 (PCR) Not Detected (Not Detect.) 05/13/22 05/13/22 Range/Units 10:55 10:55 WBC (4.8-10.8) X10*3/uL RBC (4.20-5.50) X10*6/uL Hgb (12.0-16.0) g/dl Hct (37.0-47.0) % MCV (80.0-98.0) fL MCH (27.0-33.0) pg MCHC (31.0-35.0) g/dl RDW (11.0-16.0) % Plt Count (160-400) X10*3/uL MPV (9.4-12.3) fL Immature Gran % (Auto) (0.0-0.4) % Neut % (Auto) (45-73) % Lymph % (Auto) (20-40) % [place] % (Auto) (2-11) % Eos % (Auto) (0-4) % Baso % (Auto) (0-2) % Lymph # (Auto) (1.2-4.9) X10*3/uL [place] # (Auto) (0.1-1.2) X10*3/uL Eos # (Auto) (0.0-0.4) X10*3/uL Baso # (Auto) (0.0-0.2) X10*3/uL Abs Immat Gran (auto) (0.00-0.03) X10*3/uL Absolute Neuts (auto) (2.0-8.3) x10*3/uL Absolute Nucleated RBC (0.0-0.012) X10*3/uL Nucleated RBC % (auto) (0.0-0.2) /100WBC ESR (0-20) MM/HR Sodium (135-145) mmol/L Potassium (3.3-5.1) mmol/L Chloride (96-108) mmol/L Carbon Dioxide (22-29) mmol/L Anion Gap (12-20) BUN (9-16) mg/dL Creatinine (0.5-1.4) mg/dL Estim Creat Clear Calc Estimated GFR Random Glucose (60-115) mg/dL Calcium (8.4-10.2) mg/dL Magnesium (1.6-2.6) mg/dL Total Bilirubin (0.0-1.0) mg/dL AST (5-31) U/L ALT (0-31) U/L Alkaline Phosphatase (39-117) U/L C-Reactive Protein (< or = 0.50) mg/dL Total Protein (6.5-8.0) g/dL Albumin (3.5-5.0) g/dL CSF Tube Number 2 4 CSF Volume 1.0 ML CSF Appearance CLEAR CSF Color COLORLESS CSF WBC 5 MM*3 CSF RBC 1320 MM*3 CSF Neutrophils 26 % CSF Lymphocytes 64 % CSF Monocytes % 10 % CSF Appearance (b) Clear, Colorless CSF Glucose 52 mg/dL CSF Total Protein 48.9 H (15-45) mg/dL CSF C.neoform/gat PCR (Not Detect.) CSF CMV DNA (PCR) (Not Detect.) CSF Enterovirus (PCR) (Not Detect.) CSF E. coli K1 (PCR) (Not Detect.) CSF H. influenzae (PCR) (Not Detect.) CSF HSV I (PCR) (Not Detect.) CSF HSV II (PCR) (Not Detect.) CSF L.monocytogenes PCR (Not Detect.) CSF N. meningitidis PCR (Not Detect.) CSF Parechovirus (PCR) (Not Detect.) CSF S. agalactiae (PCR) (Not Detect.) CSF S. pneumoniae (PCR) (Not Detect.) CSF VZV (PCR) (Not Detect.) COVID-19 ([facility]) (Negative) COVID-19 Clin Com Influenza Type A (CAROL) (Negative) Influenza Type B (CAROL) (Negative) Influenza A & B Note HHV-6 (PCR) (Not Detect.) Imaging Data CT scan - head: Attestation: I personally reviewed and interpreted this imaging study as follows: My impression: No acute process. Radiologist's impression: EXAMINATION: CT HEAD WITHOUT CONTRAST CLINICAL INFORMATION: Severe headache.? COMPARISON: 05/10/2022. TECHNIQUE: Contiguous axial imaging was performed from the skull base to vertex without intravenous administration of contrast. This CT examination was performed using dose optimization techniques as appropriate, variously including the following: *Automated exposure control *Adjustment of mA and/or kV according to patient size (this includes techniques or standardized protocols for targeted exams where dose is matched to indication/reason for exam; i.e. extremities or head) *Use of iterative reconstruction technique DLP: 600 mGy-cm FINDINGS: The brain parenchyma has normal attenuation. The tomas-white matter differentiation is well preserved. No evidence of an acute major vascular territory infarction. No intracranial hemorrhage, extra-axial fluid collection, focal mass effect or midline shift. The ventricles have normal size and configuration; no hydrocephalus. The brainstem and cerebellum have a normal appearance. The cerebellar tonsils are in normal position. The calvarium is intact. There is a mucus retention cyst at the floor of the left maxillary sinus. Otherwise, the visualized paranasal sinuses, mastoid air cells and middle ear cavities are well aerated. The orbits and globes are unremarkable. The temporomandibular joints are normal. CT/CT head/brain wo con IMPRESSION: No intracranial hemorrhage or other acute intracranial pathology compared to 05/10/2022. Dictated By: Arturo Shelton MD Signed By: Electronically signed by Arturo Shelton MD 05/13/22 0855 Critical Care Time Critical Care Time Critical Care Time: Yes Total Critical Care Time: 30 Attestation: I spent 30 minutes of Critical Care Time with this patient. This does not include time spent on separately reported billable procedures. Discharge Plan Discharge Clinical Impression: Migraine Patient Disposition: Home, Self-Care Instructions: Migraine Headache (ED) Additional Instructions: Follow up with your primary care provider. Return to the emergency department immediately if your symptoms worsen or if you develop any dizziness, shortness of breath, difficulty breathing, chest pain, blurry vision, loss of vision, nausea, vomiting, abdominal pain, fever, chills, back pain, or any other complaints. Prescriptions: New ketorolac 10 mg tablet 10 mg PO Q8H PRN (Reason: pain) 3 Days Qty: 7 0RF Rx Instructions: do NOT take this medication with other NSAID type medications (ibuprofen/m otrin, excedrin, etc.) No Action cyclobenzaprine 10 mg tablet 10 mg PO TID PRN (Reason: muscle spasm) Qty: 10 0RF lidocaine 5 % adhesive patch,medicated 1 patch topical DAILY Qty: 15 0RF Rx Instructions: leave on most painful area for up to 12 hrs ibuprofen 600 mg tablet 600 mg PO Q8H PRN (Reason: pain) Qty: 20 0RF hydrocodone-acetaminophen 5-325 mg tablet 1 tab PO Q8H PRN (Reason: pain) Qty: 6 0RF metoclopramide HCl [Reglan] 10 mg tablet 10 mg PO Q6H PRN (Reason: nausea and vomiting) Qty: 14 0RF propranolol 20 mg tablet 20 mg PO BID Flovent HFA 110 mcg/actuation HFA aerosol inhaler 1 puff inhalation BID clonazepam 0.5 mg tablet 0.5 mg PO BEDTIME Rx Instructions: administer 30 minutes before bedtime oxcarbazepine 600 mg tablet 600 mg PO BID albuterol sulfate 90 mcg/actuation HFA aerosol inhaler 2 puff inhalation Q6H PRN loratadine 10 mg capsule 10 mg PO DAILY zolpidem 10 mg tablet 10 mg PO BEDTIME PRN bupropion HCl 150 mg tablet sustained-release 12 hr 150 mg PO DAILY acetaminophen 650 mg tablet extended release 650 mg PO Q8H PRN sertraline 50 mg tablet 50 mg PO DAILY hydroxychloroquine [Plaquenil] 200 mg tablet 200 mg PO DAILY Qty: 90 1RF cyclobenzaprine 5 mg tablet 5 mg PO BEDTIME PRN (Reason: muscle spasm) Qty: 30 1RF Referrals: Waleska Mccracken MD [Primary Care Provider] - Print Language: Macedonian
[2022-05-13 08:40] VITALS: BP 151/82; PULSE 66; RESP 20; TEMP 36.9; O2SAT 100
[2022-05-13 08:59] LABS: MANUAL DIFF FLAG NO
[2022-05-13] MEDS: 0.9 % Sodium Chloride 1,000 ML 999 ML IVCONT (09:02)
[2022-05-13] MEDS: Morphine Sulfate 4 MG/ML CARTRIDGE IVPUSH (09:02)
[2022-05-13] MEDS: ondansetron HCL 4 MG/2 ML VIAL IVPUSH (09:03)
[2022-05-13 09:11] LABS: Basophils Absolute Auto 0.1 X10*3/uL (0.0-0.2); Basophils Percent Auto 0.7 % (0-2); Eosinophils Absolute Auto 0.1 X10*3/uL (0.0-0.4); Eosinophils Percent Auto 0.8 % (0-4); Hematocrit 33.5 % (37.0-47.0); Imm Gran Abs Auto 0.04 X10*3/uL (0.00-0.03); Imm Gran Pct Auto 0.4 % (0.0-0.4); Lymphocytes Absolute Auto 1.5 X10*3/uL (1.2-4.9); Lymphocytes Percent Auto 13.4 % (20-40); Mean Corpuscular HGB Conc 35.8 g/dl (31.0-35.0); Mean Corpuscular Hemoglobin 26.8 pg (27.0-33.0); Mean Corpuscular Volume 74.9 fL (80.0-98.0); Mean Platelet Volume 10.4 fL (9.4-12.3); Monocytes Absolute Auto 0.3 X10*3/uL (0.1-1.2); Neutrophils Percent Auto 81.7 % (45-73); Platelet Count 288 X10*3/uL (160-400); Red Blood Count 4.47 X10*6/uL (4.20-5.50); Red Cell Distribution Width 12.8 % (11.0-16.0)
--- NOTE | 2022-05-13 09:16 | PC.NURSE ---
pt alert and oriented, skin appropriate for ethnicity, respirations even but pt is slightly hyperventilating, pt reports having a terrible headache that started about 4 days while on her vacation in [place], pt does state that she has hx of migraines but this is not presenting like her typical migraine, denies nausea/light and noise sensitivity, no vision disturbances, reports pain mostly posterior and describes the pain as pulsating.
[2022-05-13 09:22] LABS: Alanine Aminotransferase 123 U/L (0-31); Albumin Level 4.5 g/dL (3.5-5.0); Alkaline Phosphatase 102 U/L (39-117); Anion Gap 13 (12-20); Aspartate Amino Transferase 57 U/L (5-31); Bilirubin Total 0.3 mg/dL (0.0-1.0); Blood Urea Nitrogen 11 mg/dL (9-16); C Reactive Protein 0.31 mg/dL (< or = 0.50); Calcium 9.4 mg/dL (8.4-10.2); Carbon Dioxide 24 mmol/L (22-29); Chloride 105 mmol/L (96-108); Creatinine Clr Calc Pharmacy 63.6; Estimated Glomerular Filt Rate > 60; Glucose Random 97 mg/dL (60-115); Magnesium 1.8 mg/dL (1.6-2.6); Potassium 3.3 mmol/L (3.3-5.1); Sodium 139 mmol/L (135-145); Total Protein 8.2 g/dL (6.5-8.0)
[2022-05-13 09:25] LABS: COVID-19 Test Negative (Negative); IDNOW Serial# 16C4AD1C; Influenza A Negative (Negative); Influenza B2 Negative (Negative)
[2022-05-13 09:51] LABS: Erythrocyte Sedimentation Rate 13 MM/HR (0-20)
[2022-05-13] MEDS: diphenhydrAMINE HCL 50 MG/ML VIAL IVPUSH (10:00)
[2022-05-13] MEDS: Ketorolac Tromethamine 15 MG/ML VIAL IVPUSH (10:01)
[2022-05-13 10:04] VITALS: BP 149/87; PULSE 68; RESP 20; O2SAT 100
--- NOTE | 2022-05-13 10:15 | PC.NURSE ---
pt not feeling any better, headache actually getting worse even with the medications plan to perform a spinal tap dr doyle at bedside with Key quinn
[2022-05-13 10:32] VITALS: BP 133/74; PULSE 73; O2SAT 99
[2022-05-13 10:56] VITALS: BP 119/72; PULSE 70; RESP 18
[2022-05-13 11:23] LABS: CSF Appearance Clear, Colorless; CSF Tube # 2
[2022-05-13 11:34] LABS: Glucose CSF 52 mg/dL; Total Protein CSF 48.9 mg/dL (15-45)
[2022-05-13 11:41] VITALS: BP 124/68; PULSE 79; RESP 18; O2SAT 100
[2022-05-13 12:18] LABS: White Blood Cell CSF 5 MM*3
[2022-05-13 12:19] LABS: Appearance CSF CLEAR; CSF Tube # 4; Color CSF COLORLESS
[2022-05-13 12:21] LABS: CSF Monos 10 %; Lymphocytes CSF 64 %; Neutrophils CSF 26 %
[2022-05-13 12:23] LABS: Red Blood Cell CSF 1320 MM*3
[2022-05-13 13:01] LABS: Cryptococcus neoformans/gattii Not Detected (Not Detect.); Enterovirus Not Detected (Not Detect.); Escherichia coli K1 Not Detected (Not Detect.); Haemophilus influenzae Not Detected (Not Detect.); Herpes simplex virus 1 Not Detected (Not Detect.); Herpes simplex virus 2 Not Detected (Not Detect.); Human herpesvirus 6 Not Detected (Not Detect.)
[2022-05-13 13:02] LABS: Human parechovirus Not Detected (Not Detect.); Listeria monocytogenes Not Detected (Not Detect.); Neisseria meningitidis Not Detected (Not Detect.); Streptococcus agalactiae Not Detected (Not Detect.); Streptococcus pneumoniae Not Detected (Not Detect.); Varicella zoster virus Not Detected (Not Detect.)
== END 2022-05-13 13:12 | disposition home or self-care (01) ==
PROVIDERS: Physician Assistant Medical; Emergency Provider Emergency Medicine Emergency Medical Services; PCP Internal Medicine
DX: G43.909 Migraine, unspecified, not intractable, without status migrainosus (principal); H53.2 Diplopia; Z20.822 Contact with and (suspected) exposure to COVID-19; Z87.891 Personal history of nicotine dependence; Z79.899 Other long term (current) drug therapy
CPT/HCPCS: 36415; 62270; 70450; 80053; 82945; 83735; 84157; 85025; 85652; 86140; 87015; 87070; 87205; 87483; 87502; 87635; 89051; 96365; 96366; 96375; 99285; J1200; J1885; J2270; J2405

== ENCOUNTER 2022-05-14 14:12 | Emergency (ER) | payer MEDICAID, SELFPAY ==
--- NOTE | 2022-05-14 | ECG_ITS ---
Test Reason : chest pain Blood Pressure : / mmHG Vent. Rate : 066 BPM Atrial Rate : 066 BPM P-R Int : 126 ms QRS Dur : 072 ms QT Int : 408 ms P-R-T Axes : 063 068 076 degrees QTc Int : 427 ms Normal sinus rhythm Normal ECG When compared with ECG of 03-APR-2010 12:50, No significant change was found Referred By: Generic ED Physician Electronically Signed By:JENISE RAY MD
[2022-05-14 14:34] VITALS: BP 180/82; PULSE 69; RESP 20; TEMP 36.4; O2SAT 99; BMI 19.8
[2022-05-14 14:51] LABS: MANUAL DIFF FLAG NO
[2022-05-14 15:04] LABS: Basophils Percent Auto 0.5 % (0-2); Eosinophils Absolute Auto 0.1 X10*3/uL (0.0-0.4); Eosinophils Percent Auto 1.4 % (0-4); Hematocrit 32.1 % (37.0-47.0); Hemoglobin 11.3 g/dl (12.0-16.0); Imm Gran Abs Auto 0.02 X10*3/uL (0.00-0.03); Imm Gran Pct Auto 0.3 % (0.0-0.4); Lymphocytes Absolute Auto 2.2 X10*3/uL (1.2-4.9); Lymphocytes Percent Auto 28.2 % (20-40); Mean Corpuscular HGB Conc 35.2 g/dl (31.0-35.0); Mean Corpuscular Hemoglobin 26.2 pg (27.0-33.0); Mean Corpuscular Volume 74.5 fL (80.0-98.0); Mean Platelet Volume 10.3 fL (9.4-12.3); Monocytes Absolute Auto 0.4 X10*3/uL (0.1-1.2); Monocytes Percent Auto 4.9 % (2-11); Neutrophils Absolute Auto 5.2 x10*3/uL (2.0-8.3); Neutrophils Percent Auto 64.7 % (45-73); Platelet Count 286 X10*3/uL (160-400); Red Blood Count 4.31 X10*6/uL (4.20-5.50); Red Cell Distribution Width 12.7 % (11.0-16.0)
[2022-05-14 15:06] LABS: Anion Gap 12 (12-20); Blood Urea Nitrogen 6 mg/dL (9-16); Calcium 9.7 mg/dL (8.4-10.2); Carbon Dioxide 26 mmol/L (22-29); Chloride 105 mmol/L (96-108); Creatinine Clr Calc Pharmacy 78.5; Estimated Glomerular Filt Rate > 60; Glucose Random 134 mg/dL (60-115); Potassium 3.7 mmol/L (3.3-5.1); Sodium 139 mmol/L (135-145)
[2022-05-14 15:13] LABS: Troponin-I High Sensitivity < 3.5 ng/L (<3.5-17.0)
--- NOTE | 2022-05-14 16:51 | ED.CHESTPAIN ---
HPI - Chest Pain General Chief Complaint: Chest Pain Stated Complaint: migraine chest pain Time Seen by Provider: 05/14/22 16:51 Source: patient Mode of arrival: ambulatory Limitations: no limitations History of Present Illness HPI narrative: 46 y/o female presents to the ER for the 4th time in 4 days with chest pain and headache. She reports having a migraine for the last 4 days that is not got any better. She has had 2 CT scans here and a lumbar puncture. Results were unremarkable. She saw neurologist today who prescribed medications that are not working for her. She reports that she has not been able to sleep in the last few days because of headaches. She reports the headache is in the back of her head, the front of her head. She is nauseous and having some light sensitivity. She denies any fever or chills. No vision changes. No weakness, tingling, numbness. She reports her chest pain is in the middle of her chest and has also been coming and going for the last 4 days. It is aching in nature, does not radiate and is worst when her headache pain intensifies. No shortness of breath. MD complaint: chest pain and other (headache) Onset (ago): day(s) Timing of current episode: episodic Prior episodes: Yes Onset: during rest Pain location: substernal Pain radiation: none Severity: mild Quality: aching Relieving factors: nothing Exacerbating factors: nothing Associated symptoms: nausea Treatment prior to arrival: none Risk Factors Coronary artery disease risk factors: none Thoracic aortic dissection risk factors: none Related Data On Oral Contraceptives: No Home Medications Medication Instructions Recorded Confirmed acetaminophen 650 mg 650 mg PO Q8H PRN 10/27/20 10/27/20 tablet,extended release albuterol sulfate 90 mcg/actuation 2 puff inhalation Q6H PRN 10/27/20 10/27/20 aerosol inhaler bupropion HCl 150 mg tablet,12 hr 150 mg PO DAILY 10/27/20 10/27/20 sustained-release clonazepam 0.5 mg tablet 0.5 mg PO BEDTIME 10/27/20 10/27/20 fluticasone propionate 110 1 puff inhalation BID 10/27/20 10/27/20 mcg/actuation HFA aerosol inhaler (Flovent HFA) loratadine 10 mg capsule 10 mg PO DAILY 10/27/20 10/27/20 oxcarbazepine 600 mg tablet 600 mg PO BID 10/27/20 10/27/20 propranolol 20 mg tablet 20 mg PO BID 10/27/20 10/27/20 zolpidem 10 mg tablet 10 mg PO BEDTIME PRN 10/27/20 10/27/20 sertraline 50 mg tablet 50 mg PO DAILY 05/03/21 Previous Rx's Medication Instructions Recorded cyclobenzaprine 5 mg tablet 5 mg PO BEDTIME PRN muscle spasm 05/03/21 #30 tabs hydroxychloroquine 200 mg tablet 200 mg PO DAILY #90 tabs 05/03/21 (Plaquenil) cyclobenzaprine 10 mg tablet 10 mg PO TID PRN muscle spasm #10 09/15/21 tabs hydrocodone 5 mg-acetaminophen 325 1 tab PO Q8H PRN pain #6 tabs 09/15/21 mg tablet ibuprofen 600 mg tablet 600 mg PO Q8H PRN pain #20 tabs 09/15/21 lidocaine 5 % topical patch 1 patch topical DAILY #15 ea 09/15/21 metoclopramide HCl 10 mg tablet 10 mg PO Q6H PRN nausea and 05/10/22 (Reglan) vomiting #14 tabs ketorolac 10 mg tablet 10 mg PO Q8H PRN pain 3 days #7 05/13/22 tabs Allergies Allergy/AdvReac Type Severity Reaction Status Date / Time apple [Apple] Allergy Severe THROAT Verified 05/03/21 09:11 SWELLS tree nut [Tree Nut] Allergy Severe SWELLING Verified 05/03/21 09:11 Review of Systems Review of Systems: Constitutional: No Fever, No Chills ENT/Mouth: No sore throat, No Rhinorrhea, No Swallowing Difficulty Eyes: No Eye Pain, No Swelling, No Redness, NO vision changes Cardiovascular: + Chest Pain, No SOB, No Orthopnea, No Edema Respiratory: No Cough, No Sputum, No Wheezing, No dyspnea Gastrointestinal: + Nausea, No Vomiting, No Diarrhea, No abdominal Pain Genitourinary: No Dysuria, No Urinary Frequency, No Hematuria Musculoskeletal: No joint pain, + Myalgias Skin: No Skin Lesions, No rash Neuro: No Weakness, No Numbness,+ Dizziness, + Headache Psych: + Anxiety/Panic, No Depression Heme/Lymph: No Bruising, No Lymphadenopathy Endocrine: No Polyuria, No Polydipsia PMFSH Past Medical History Surgical History History of hysterectomy Social History Social History Alcohol intake: never Patient Tobacco Use Status: Former Tobacco user Cigarettes Per Day: 7 Years Smoked: 15 e-Cigarette/Vaping Use: Never Used Advance Directives: No Advance Directives Information Provided: No Physical Exam Vital Signs: Vital Signs: Last Vital Signs Temp 97.5 F 05/14/22 14:34 Pulse 77 05/14/22 20:16 Resp 18 05/14/22 20:16 BP 168/80 H 05/14/22 20:16 Pulse Ox 98 05/14/22 20:16 O2 Del Method 05/14/22 20:16 BMI result Body Mass Index 19.8 Appearance: Alert. Oriented X3. No acute distress. Eyes: Pupils equal, round and reactive to light. EOMI, no nystagmus. ENT: Pharynx normal. Neck: Normal inspection. Neck supple. No nuchal rigidity CVS: Normal heart rate and rhythm. Pulses normal. Respiratory: No respiratory distress. Breath sounds normal. Abdomen: Soft and nontender. +BS x4 Skin: Skin warm and dry. Normal skin color. Normal skin turgor. No rashes. Extremities: No lower extremity edema. Neuro: Oriented X 3. No motor deficit. No sensory deficit. Speech and cognition are normal. Steady gait. Course Course Course Narrative: 46-year-old female presents to the ER for evaluation of a headache. She has a history of migraines but states this is much worse than her usual migraines. She has been seen here 3 other times in the last 4 days for the similar picture. She has had 2 CT scans of the lumbar puncture which were negative. Blood work is unremarkable. She was discharged with prescriptions for ketorolac & Reglan. She is unsure with the medication she was given by the neurologist today but she reports it was not working. Given her history of migraines will give a trial of subcu Imitrex. Will reassess. Reevaluation(s) Reevaluation #1: Patient reports persistent headache with subcutaneous Imitrex. She is nauseous. Will give intramuscular Toradol, Reglan, Benadryl. Will reassess. Reevaluation #2: Patient is feeling much better she would like to be discharged home. She will follow back up with Neurology. She is stable for DC. MDM - Chest Pain Lab Data Result diagrams: 05/14/22 14:46 05/14/22 14:46 Labs: Lab Results 05/14/22 05/14/22 05/14/22 Range/Units 14:46 14:46 14:46 WBC 8.0 (4.8-10.8) X10*3/uL RBC 4.31 (4.20-5.50) X10*6/uL Hgb 11.3 L (12.0-16.0) g/dl Hct 32.1 L (37.0-47.0) % MCV 74.5 L (80.0-98.0) fL MCH 26.2 L (27.0-33.0) pg MCHC 35.2 H (31.0-35.0) g/dl RDW 12.7 (11.0-16.0) % Plt Count 286 (160-400) X10*3/uL MPV 10.3 (9.4-12.3) fL Immature Gran % (Auto) 0.3 (0.0-0.4) % Neut % (Auto) 64.7 (45-73) % Lymph % (Auto) 28.2 (20-40) % [place] % (Auto) 4.9 (2-11) % Eos % (Auto) 1.4 (0-4) % Baso % (Auto) 0.5 (0-2) % Lymph # (Auto) 2.2 (1.2-4.9) X10*3/uL [place] # (Auto) 0.4 (0.1-1.2) X10*3/uL Eos # (Auto) 0.1 (0.0-0.4) X10*3/uL Baso # (Auto) 0.0 (0.0-0.2) X10*3/uL Abs Immat Gran (auto) 0.02 (0.00-0.03) X10*3/uL Absolute Neuts (auto) 5.2 (2.0-8.3) x10*3/uL Absolute Nucleated RBC 0.000 (0.0-0.012) X10*3/uL Nucleated RBC % (auto) 0.0 (0.0-0.2) /100WBC Sodium 139 (135-145) mmol/L Potassium 3.7 (3.3-5.1) mmol/L Chloride 105 (96-108) mmol/L Carbon Dioxide 26 (22-29) mmol/L Anion Gap 12 (12-20) BUN 6 L (9-16) mg/dL Creatinine 0.68 (0.5-1.4) mg/dL Estim Creat Clear Calc 78.5 Estimated GFR > 60 Random Glucose 134 H (60-115) mg/dL Calcium 9.7 (8.4-10.2) mg/dL Troponin I High Sens < 3.5 (<3.5-17.0) ng/L Discharge Plan Discharge Clinical Impression: Headache Patient Disposition: Home, Self-Care Instructions: General Headache (ED) Additional Instructions: Follow up with Neurology If you develop new or worsening symptoms call 911 or come back to the ER for further evaluation. Prescriptions: No Action ketorolac 10 mg tablet 10 mg PO Q8H PRN (Reason: pain) 3 Days Qty: 7 0RF Rx Instructions: do NOT take this medication with other NSAID type medications (ibuprofen/motrin, excedrin, etc.) cyclobenzaprine 10 mg tablet 10 mg PO TID PRN (Reason: muscle spasm) Qty: 10 0RF lidocaine 5 % adhesive patch,medicated 1 patch topical DAILY Qty: 15 0RF Rx Instructions: leave on most painful area for up to 12 hrs ibuprofen 600 mg tablet 600 mg PO Q8H PRN (Reason: pain) Qty: 20 0RF hydrocodone-acetaminophen 5-325 mg tablet 1 tab PO Q8H PRN (Reason: pain) Qty: 6 0RF metoclopramide HCl [Reglan] 10 mg tablet 10 mg PO Q6H PRN (Reason: nausea and vomiting) Qty: 14 0RF propranolol 20 mg tablet 20 mg PO BID Flovent HFA 110 mcg/actuation HFA aerosol inhaler 1 puff inhalation BID clonazepam 0.5 mg tablet 0.5 mg PO BEDTIME Rx Instructions: administer 30 minutes before bedtime oxcarbazepine 600 mg tablet 600 mg PO BID albuterol sulfate 90 mcg/actuation HFA aerosol inhaler 2 puff inhalation Q6H PRN loratadine 10 mg capsule 10 mg PO DAILY zolpidem 10 mg tablet 10 mg PO BEDTIME PRN bupropion HCl 150 mg tablet sustained-release 12 hr 150 mg PO DAILY acetaminophen 650 mg tablet extended release 650 mg PO Q8H PRN sertraline 50 mg tablet 50 mg PO DAILY hydroxychloroquine [Plaquenil] 200 mg tablet 200 mg PO DAILY Qty: 90 1RF cyclobenzaprine 5 mg tablet 5 mg PO BEDTIME PRN (Reason: muscle spasm) Qty: 30 1RF Stand Alone Forms: Work/School Release Interventions: ED Discharge Assessment Last Done: 05/14/22 20:17 Discharge Date/Time: 05/14/22 20:17
[2022-05-14] MEDS: SUMAtriptan succinate 6 MG/0.5 ML VIAL SUBCUT (17:54)
[2022-05-14] MEDS: diphenhydrAMINE HCL 50 MG/ML VIAL 25 MG IM (19:12)
[2022-05-14] MEDS: Metoclopramide HCl 10 MG/2 ML VIAL IM (19:12)
[2022-05-14] MEDS: Ketorolac Tromethamine 30 MG/ML VIAL IM (19:12)
[2022-05-14 20:16] VITALS: BP 168/80; PULSE 77; RESP 18; O2SAT 98
== END 2022-05-14 20:17 | disposition home or self-care (01) ==
PROVIDERS: Emergency Provider Emergency Medicine; PCP Internal Medicine
DX: R07.89 Other chest pain (principal); R51.9 Headache, unspecified; Z87.891 Personal history of nicotine dependence; Z79.899 Other long term (current) drug therapy
CPT/HCPCS: 36415; 80048; 84484; 85025; 93005; 96372; 99283; 99284; J1200; J1885; J2765; J3030

== ENCOUNTER → 2022-05-22 10:33 | Outpatient (BNVA) | payer MEDICAID, SELFPAY | PROVIDERS: PCP Internal Medicine; Visit Provider Internal Medicine Rheumatology | DX: M32.9 Systemic lupus erythematosus, unspecified (principal); M47.816 Spondylosis without myelopathy or radiculopathy, lumbar region | CPT/HCPCS: 99212 ==

== ENCOUNTER 2022-07-24 08:30 | Outpatient (REF) | payer MEDICAID, SELFPAY ==
[2022-07-24 08:48] LABS: MANUAL DIFF FLAG NO
[2022-07-24 09:06] LABS: Basophils Absolute Auto 0.1 X10*3/uL (0.0-0.2); Basophils Percent Auto 1.7 % (0-2); Eosinophils Absolute Auto 0.1 X10*3/uL (0.0-0.4); Eosinophils Percent Auto 2.2 % (0-4); Hematocrit 32.3 % (37.0-47.0); Hemoglobin 11.4 g/dl (12.0-16.0); Imm Gran Abs Auto 0.01 X10*3/uL (0.00-0.03); Imm Gran Pct Auto 0.2 % (0.0-0.4); Lymphocytes Absolute Auto 2.1 X10*3/uL (1.2-4.9); Lymphocytes Percent Auto 37.6 % (20-40); Mean Corpuscular HGB Conc 35.3 g/dl (31.0-35.0); Mean Corpuscular Volume 76.5 fL (80.0-98.0); Monocytes Absolute Auto 0.4 X10*3/uL (0.1-1.2); Monocytes Percent Auto 7.2 % (2-11); Neutrophils Absolute Auto 2.8 x10*3/uL (2.0-8.3); Neutrophils Percent Auto 51.1 % (45-73); Platelet Count 228 X10*3/uL (160-400); Red Blood Count 4.22 X10*6/uL (4.20-5.50); White Blood Count 5.5 X10*3/uL (4.8-10.8)
[2022-07-24 09:36] LABS: Alanine Aminotransferase 9 U/L (0-31); Albumin Level 4.3 g/dL (3.5-5.0); Alkaline Phosphatase 73 U/L (39-117); Aspartate Amino Transferase 17 U/L (5-31); Bilirubin Total 0.3 mg/dL (0.0-1.0); Blood Urea Nitrogen 14 mg/dL (9-16); Calcium 9.3 mg/dL (8.4-10.2); Estimated Glomerular Filt Rate > 60; Total Protein 7.5 g/dL (6.5-8.0)
[2022-07-24 09:37] LABS: Anion Gap 13 (12-20); Carbon Dioxide 27 mmol/L (22-29); Chloride 103 mmol/L (96-108); Glucose Random 51 mg/dL (60-115); Potassium 4.3 mmol/L (3.3-5.1); Sodium 139 mmol/L (135-145)
[2022-07-24 09:57] LABS: Thyroid Stimulating Hormone 1.43 uIU/mL (0.32-4.0)
[2022-07-24 11:09] LABS: Creatinine Urine 123.89 mg/dL; Protein/Creatinine Ratio, Ur 0.06 (<0.2); Total Protein Urine Random 8 mg/dL (<12)
== END 2022-07-24 08:31 | disposition home or self-care (01) ==
LOC: HO.LAB 08:30
PROVIDERS: PCP Internal Medicine; Visit Provider Internal Medicine
DX: D64.9 Anemia, unspecified (principal); M32.9 Systemic lupus erythematosus, unspecified; R53.83 Other fatigue; R63.4 Abnormal weight loss; R80.8 Other proteinuria
CPT/HCPCS: 36415; 80053; 84156; 84443; 85025

== ENCOUNTER → 2022-08-20 14:16 | Outpatient (BNVA) | payer MEDICAID, SELFPAY | PROVIDERS: PCP Internal Medicine; Visit Provider Internal Medicine | DX: M47.816 Spondylosis without myelopathy or radiculopathy, lumbar region (principal) | CPT/HCPCS: 99202 ==

== ENCOUNTER 2022-09-26 05:35 | Outpatient (REF) | payer MEDICAID, SELFPAY ==
--- NOTE | ~2022-09-26 | FL_ITS ---
EXAMINATION: XR FLUOROSCOPY WITH IMAGES CLINICAL INFORMATION: M47.816 - Spondylosis without myelopathy or radiculopathy, lumbar region COMPARISON: Lumbar radiographs 01/31/2021 TECHNIQUE: Fluoroscopy performed by Dr. Liam Price. Fluoroscopy time: 0.3 minutes. Cumulative Dose: 5.38 mGy. DAP: 0.644 Gy-cm2. Images: 2. FINDINGS: There are spinal needles overlying the bilateral outer L3, L4, and L5 neural foramen. There is contrast seen in the respective nerve sheaths. Some early transforaminal epidural extension is suggested. No visible vascular communication. FL/FL guidance in treatment room IMPRESSION: Fluoroscopy for pain management procedures.
== END 2022-09-26 05:36 | disposition home or self-care (01) ==
LOC: HO.RADIR 05:35
PROVIDERS: Visit Provider Internal Medicine
DX: M47.816 Spondylosis without myelopathy or radiculopathy, lumbar region (principal)
CPT/HCPCS: 64493; 64494

== ENCOUNTER 2022-12-19 09:42 | Day surgery (SDC) | payer MEDICAID, SELFPAY ==
[2022-11-22 09:45] VITALS: BMI 19.3
--- NOTE | 2022-11-27 09:51 | P.CONAN_ITS ---
Documented by User: Melani Reyes NP 12/11/22 08:02 HPI - Anesthesia Eval Consult details Narrative: 47yo F for Bilateral Diagnostic L3-L4-DRL5 Medial Branch Block 12/19/22 [facility] Active Problems Active Problems: All Active Problems (Updated 11/22/22 @ 09:43 by Lashonda Rush RN) Bilateral carpal tunnel syndrome (Acute) Lumbar spondylosis (Acute) Lupus (Acute) Past Medical History Medical History (Updated 11/22/22 @ 09:43 by Lashonda Rush RN) Arthritis Asthma Bipolar disorder Depression History of COVID-19 Lupus Raynauds syndrome Surgical History Surgical History (Updated 11/22/22 @ 09:49 by Lashonda Rush RN) H/O colonoscopy History of History of hysterectomy Hx of cholecystectomy Social History Social History Alcohol intake: never Patient Tobacco Use Status: Former Tobacco user Quit Date: 2018 Tobacco use type: Cigarette Cigarettes Per Day: 7 Years Smoked: 15 e-Cigarette/Vaping Use: Never Used Meds Allergies Allergy/AdvReac Type Severity Reaction Status Date / Time apple [Apple] Allergy Severe throat Verified 11/21/22 13:36 swelling tree nut [Tree Nut] Allergy Severe Swelling Verified 11/22/22 09:45 Home Medications Medication Instructions Recorded Confirmed Last Taken Type albuterol sulfate 90 mcg/actuation 2 puff inhalation Q6H PRN Wheezing 10/27/20 11/22/22 11/14/22 History aerosol inhaler bupropion HCl 150 mg tablet,12 hr 150 mg PO DAILY 10/27/20 11/22/22 12/18/22 History sustained-release loratadine 10 mg capsule 10 mg PO DAILY 10/27/20 11/22/22 12/18/22 History oxcarbazepine 600 mg tablet 600 mg PO BID 10/27/20 11/22/22 12/18/22 History propranolol 20 mg tablet 20 mg PO BID 10/27/20 11/22/22 12/18/22 History zolpidem 10 mg tablet 10 mg PO BEDTIME PRN Insomnia 10/27/20 11/22/22 12/18/22 History sertraline 50 mg tablet 50 mg PO DAILY 05/03/21 11/22/22 12/18/22 History clonazepam 0.5 mg tablet 0.5 mg PO BEDTIME PRN Anxiety 05/22/22 11/22/22 11/14/22 History divalproex 250 mg tablet,extended 1 tab PO BEDTIME 12/19/22 12/19/22 12/11/22 History release 24 hr Exam Exam Date and Time: November 27, 2022 0951 Height,Weight and Vital Signs: Height 5 ft 1 in Weight 46.266 kg Pertinent Lab Results Pertinent Lab Results: Laboratory Tests 07/24/22 07/24/22 08:48 08:48 WBC 5.5 Hgb 11.4 L Hct 32.3 L Plt Count 228 Sodium 139 Potassium 4.3 Chloride 103 Carbon Dioxide 27 BUN 14 D Creatinine 0.81 Narrative Narrative: EKG 04/2022 Vent. Rate : 066 BPM ? ? Atrial Rate : 066 BPM ?? P-R Int : 126 ms? QRS Dur : 072 ms ? ? QT Int : 408 ms ? ? ? P-R-T Axes : 063 068 076 degrees ?? QTc Int : 427 ms ? Normal sinus rhythm Normal ECG When compared with ECG of 03-APR-2010 12:50, No significant change was found Assessment and Plan Assessment Anesthesia Assessment: Chart Reviewed Documented by User: Ludwin Haas MD 12/19/22 16:05 [facility] Past Medical History Medical History (Updated 11/22/22 @ 09:43 by Lashonda Rush RN) Arthritis Asthma Bipolar disorder Depression History of COVID-19 Lupus Raynauds syndrome Family History Family history of problems with anesthesia: No Surgical History Surgical History (Updated 11/22/22 @ 09:49 by Lashonda Rush RN) H/O colonoscopy History of History of hysterectomy Hx of cholecystectomy History of Problems with Anesthesia: No Social History Social History Alcohol intake: never Patient Tobacco Use Status: Former Tobacco user Quit Date: 2018 Tobacco use type: Cigarette Cigarettes Per Day: 7 Years Smoked: 15 e-Cigarette/Vaping Use: Never Used Meds Allergies Allergy/AdvReac Type Severity Reaction Status Date / Time apple [Apple] Allergy Severe throat Verified 11/21/22 13:36 swelling tree nut [Tree Nut] Allergy Severe Swelling Verified 11/22/22 09:45 Home Medications Medication Instructions Recorded Confirmed Last Taken Type albuterol sulfate 90 mcg/actuation 2 puff inhalation Q6H PRN Wheezing 10/27/20 11/22/22 11/14/22 History aerosol inhaler bupropion HCl 150 mg tablet,12 hr 150 mg PO DAILY 10/27/20 11/22/22 12/18/22 History sustained-release loratadine 10 mg capsule 10 mg PO DAILY 10/27/20 11/22/22 12/18/22 History oxcarbazepine 600 mg tablet 600 mg PO BID 10/27/20 11/22/22 12/18/22 History propranolol 20 mg tablet 20 mg PO BID 10/27/20 11/22/22 12/18/22 History zolpidem 10 mg tablet 10 mg PO BEDTIME PRN Insomnia 10/27/20 11/22/22 12/18/22 History sertraline 50 mg tablet 50 mg PO DAILY 05/03/21 11/22/22 12/18/22 History clonazepam 0.5 mg tablet 0.5 mg PO BEDTIME PRN Anxiety 05/22/22 11/22/22 2 History divalproex 250 mg tablet,extended 1 tab PO BEDTIME 12/19/22 12/19/22 12/11/22 History release 24 hr Exam Airway Mallampati Class: III TM Dist: >3cm Loose/Missing/Broken Teeth: Yes Heart: S1,S2 Lungs: b/l breath sounds Assessment and Plan Assessment Anesthesia Assessment: Anesthesia Plan Discussed Final Anesthetic Review Family History of Problems with Anesthesia: No History of Problems with Anesthesia: No NPO: Yes ASA Class: II Final Preanesthetic Review: Meds/Allgs Chart Reviewed and Consent Obtained/Reviewed Patient Risk: Intermediate Procedure Risk: Intermediate Anesthetic Plan Anesthetic Plan: MAC: Disposition: Standard PACU
--- NOTE | ~2022-12-19 | FL_ITS ---
EXAMINATION: XR FLUOROSCOPY WITH IMAGES CLINICAL INFORMATION: Back pain. COMPARISON: Fluoroscopy pain management 09/26/2022. TECHNIQUE: Fluoroscopy Supervised By: Dr. Liam Price. Fluoroscopy Time: 0.2 minutes. Cumulative Dose: 2.22 mGy. DAP: 0.314 Gycm2. Images: 2. FINDINGS: There are 2 digital images obtained revealing needles positioned adjacent to bilateral L4, L5 and S1 pedicles with contrast opacifying the adjacent soft tissues. Visualized bones are grossly unremarkable. FL/FL guidance in OR IMPRESSION: Fluoroscopy was provided to referring physician for pain management.
[2022-12-19 09:53] VITALS: BP 122/67; PULSE 72; RESP 16; TEMP 36.8; O2SAT 98
[2022-12-19] MEDS: Lactated Ringers 1,000 ML 100 ML IVCONT (10:22)
--- NOTE | 2022-12-19 10:27 | MHC.SHP ---
Pre-Procedural Eval Section A Date of Service: 12/19/22 The patient is an INPATIENT: No Changes since office visit: Yes Patient answered all questions The History & Physical has been completed within 30 days and I have reviewed it.: No Section B Chief Complaint: Spondylosis without myelopathy or radiculopathy Relevant Family History (Specify if Yes): No Relevant Social History: None Present Medications: see Short Stay Collaborative assessment Medical History: No relevant PMH History of Previous Operations: No relevant previous surgery Allergies: Allergies Allergy/AdvReac Type Severity Reaction Status Date / Time apple [Apple] Allergy Severe throat Verified 11/21/22 13:36 swelling tree nut [Tree Nut] Allergy Severe Swelling Verified 11/22/22 09:45 Review of Systems Sugical H&P ROS: Negative: Constitution, Cardiovascular and Respiratory Exam Surgical H&P Exam: Normal: HEENT, Normal: Heart and Normal: Lungs Plan Diagnosis/Plan: Unchanged Patient reports roughly 50% relief from the last round of diagnostic lumbar medial branch blocks. Will proceed with therapeutic lumbar facet blocks under anesthesia today given significant injection site pain after the last injection. Time Spent With Patient Time: Total time managing care of this patient today ____ minutes.
--- NOTE | 2022-12-19 10:29 | P.BOP_ITS ---
Brief Operative Note Date of Service: 12/19/22 Pre-op diagnosis: Lumbar spondylosis Post-op diagnosis: same Procedure: L3-4, L4-5, L5-S1 therapeutic facet blocks with Depo-Medrol and local Implants: None Surgeon: Liam Price MD Anesthesia: MAC Was an Paraffin Machine Operator used for this Procedure?: No Estimated blood loss (mL): 1 Pathology: none sent Condition: stable Disposition: PACU
--- NOTE | 2022-12-19 10:31 | W.PM.OPN ---
Operative Note Operative Note Date of Service: 12/19/22 Narrative: Lumbar Medial Branch Block, Bilateral L3, L4 medial branches and L5 Dorsal Ramus (2 levels, 3 nerves) After obtaining written consent, pre-procedure blood pressure and pulse were recorded and are in the nursing record for review. The patient was placed in a prone position and sedated by the education trainer. The respective lumbosacral area was prepped with chloraprep and draped in sterile fashion. The skin over the target medial branch nerves was anesthetized with 0.5% lidocaine. A 22 gauge 3.5 inch needle was inserted into the target medial branch nerve under fluoroscopic guidance. No paresthesias were elicited with needle placement and aspiration was negative for blood and CSF. Next, 0.2cc of omnipaque 180 was injected to verify positioning. Next 13mg of triamcinolone mixed with 0.5 ml 0.5% ropivicaine was injected (0.5cc total per level). The identical procedure was performed at the remaining levels. The skin was cleansed and a sterile bandage was applied. Following the procedure the patient's vital signs were stable. The patient tolerated the procedure well and no complications were encountered. Following the procedure the patient's vital signs were stable. The patient was discharged home in good condition with post-procedural instructions. Time Out: Immediately prior to the procedure, the following was verbally confirmed that there is a signed consent form and that the correct patient, planned procedure, site and side are consistent with documentation and that necessary equipment and/or blood products are available prior to the start of the case. Complications: none EBL: <1 cc
[2022-12-19 12:49] VITALS: BP 100/62; PULSE 63; RESP 17; TEMP 36.3; O2SAT 99
[2022-12-19 13:04] VITALS: BP 101/63; PULSE 62; RESP 16; TEMP 36.5; O2SAT 98
== END 2022-12-19 13:37 | disposition home or self-care (01) ==
PROVIDERS: PCP Internal Medicine; Visit Provider Internal Medicine
PROC: (CPT 64493; principal; 2022-12-19 11:50)
DX: M47.816 Spondylosis without myelopathy or radiculopathy, lumbar region (principal); M54.50 Low back pain, unspecified; M32.9 Systemic lupus erythematosus, unspecified; G43.909 Migraine, unspecified, not intractable, without status migrainosus; Z79.899 Other long term (current) drug therapy; Z87.891 Personal history of nicotine dependence
CPT/HCPCS: 64493; 64494; J2250; J2795; Q9967

== ENCOUNTER 2023-03-04 08:08 | Outpatient (REF) | payer MEDICAID, SELFPAY ==
[2023-03-04 08:29] LABS: MANUAL DIFF FLAG NO
[2023-03-04 09:01] LABS: Basophils Absolute Auto 0.1 X10*3/uL (0.0-0.2); Basophils Percent Auto 1.2 % (0-2); Eosinophils Absolute Auto 0.2 X10*3/uL (0.0-0.4); Eosinophils Percent Auto 2.6 % (0-4); Hematocrit 34.1 % (37.0-47.0); Hemoglobin 12.1 g/dl (12.0-16.0); Imm Gran Abs Auto 0.01 X10*3/uL (0.00-0.03); Imm Gran Pct Auto 0.2 % (0.0-0.4); Lymphocytes Absolute Auto 1.8 X10*3/uL (1.2-4.9); Lymphocytes Percent Auto 31.3 % (20-40); Mean Corpuscular HGB Conc 35.5 g/dl (31.0-35.0); Mean Corpuscular Hemoglobin 26.9 pg (27.0-33.0); Mean Corpuscular Volume 75.9 fL (80.0-98.0); Mean Platelet Volume 10.2 fL (9.4-12.3); Monocytes Absolute Auto 0.3 X10*3/uL (0.1-1.2); Monocytes Percent Auto 5.8 % (2-11); Neutrophils Absolute Auto 3.4 x10*3/uL (2.0-8.3); Neutrophils Percent Auto 58.9 % (45-73); Platelet Count 273 X10*3/uL (160-400); Red Blood Count 4.49 X10*6/uL (4.20-5.50); Red Cell Distribution Width 12.9 % (11.0-16.0); White Blood Count 5.8 X10*3/uL (4.8-10.8)
[2023-03-04 09:40] LABS: C Reactive Protein < 0.10 mg/dL (< or = 0.50); Estimated Glomerular Filt Rate > 60
[2023-03-04 09:41] LABS: Erythrocyte Sedimentation Rate 6 MM/HR (0-20)
[2023-03-04 10:01] LABS: Ferritin 124 ng/mL (10-250); Vitamin D 25-OH Total 20.4 ng/mL (>30)
[2023-03-04 10:14] LABS: Creatinine Urine 70.35 mg/dL; Total Protein Urine Random < 7 mg/dL (<12)
[2023-03-06 12:38] LABS: Anti DNA DS Antibody 6 IU/mL
[2023-03-06 15:58] LABS: Complement C3 94 mg/dL (83-193)
== END 2023-03-04 08:09 | disposition home or self-care (01) ==
LOC: HO.LAB 08:08
PROVIDERS: Absent Provider Internal Medicine; PCP Internal Medicine; Visit Provider Internal Medicine Rheumatology
DX: Z00.00 Encounter for general adult medical examination without abnormal findings (principal); M32.9 Systemic lupus erythematosus, unspecified; D64.89 Other specified anemias; I10 Essential (primary) hypertension; J45.909 Unspecified asthma, uncomplicated; Z86.010 Personal history of colon polyps
CPT/HCPCS: 36415; 82306; 82565; 82728; 84156; 85025; 85652; 86140; 86160; 86225

== ENCOUNTER → 2023-04-01 10:44 | Outpatient (BNVA) | payer MEDICAID, SELFPAY | PROVIDERS: PCP Internal Medicine; Visit Provider Internal Medicine | DX: M47.816 Spondylosis without myelopathy or radiculopathy, lumbar region (principal) | CPT/HCPCS: 99212 ==

== ENCOUNTER 2023-04-08 11:43 | Outpatient (REF) | payer MEDICAID, SELFPAY ==
--- NOTE | ~2023-04-08 | MM_ITS ---
EXAMINATION: MM SCREENING DIGITAL BREAST TOMOSYNTHESIS, BILATERAL CLINICAL INFORMATION: Screening. Asymptomatic. The lifetime risk of breast cancer based on the Tyrer-Cuzick Model is 6%. COMPARISON: Mammography: 03/05/2022, 02/06/2021, 02/01/2020 TECHNIQUE: Digital breast tomosynthesis is performed in both the craniocaudal and mediolateral oblique views along with computer-aided detection (CAD). Synthesized 2D images are generated from the tomosynthesis. FINDINGS: There are scattered areas of fibroglandular density (ACR BI-RADS breast composition Category b). There are no significant masses, abnormal calcifications, or other abnormalities. Parenchymal pattern is similar to prior studies. There is no developing density or architectural abnormality. The axilla and skin contours are unremarkable. No significant changes. MM/MM tomosynthesis screening BI IMPRESSION: No mammographic evidence of malignancy. ASSESSMENT: BI-RADS 1: Negative RECOMMENDATION: Routine annual mammography screening. This patient's information was entered into a reminder system with a target due date for their next mammogram.
== END 2023-04-08 11:44 | disposition home or self-care (01) ==
LOC: HO.MAMMO 11:43
PROVIDERS: PCP Internal Medicine; Visit Provider Internal Medicine
DX: Z12.31 Encounter for screening mammogram for malignant neoplasm of breast (principal)
CPT/HCPCS: 77063; 77067

== ENCOUNTER 2023-05-22 10:29 | Day surgery (SDC) | payer MEDICAID, SELFPAY ==
[2023-05-22 10:47] VITALS: BMI 19.6
--- NOTE | 2023-05-22 12:42 | MHC.SHP ---
Pre-Procedural Eval Section A Date of Service: 05/22/23 The patient is an INPATIENT: No Changes since office visit: Yes Patient answered all questions The History & Physical has been completed within 30 days and I have reviewed it.: Yes Section B Chief Complaint: Spondylosis without myelopathy or radiculopathy, Relevant Family History (Specify if Yes): No Relevant Social History: None Present Medications: see Short Stay Collaborative assessment Medical History: No relevant PMH History of Previous Operations: No relevant previous surgery Allergies: Allergies Allergy/AdvReac Type Severity Reaction Status Date / Time apple [Apple] Allergy Severe throat Verified 05/22/23 10:49 swelling tree nut [Tree Nut] Allergy Severe Swelling Verified 05/22/23 10:49 Review of Systems Sugical H&P ROS: Negative: Constitution, Cardiovascular and Respiratory Exam Surgical H&P Exam: Normal: HEENT, Normal: Heart and Normal: Lungs Plan Diagnosis/Plan: Unchanged I have reviewed the history and physical and performed a pertinent physical examination on my patient. No changes have occurred unless specified. Time Spent With Patient Time: Total time managing care of this patient today ____ minutes.
--- NOTE | 2023-05-22 12:43 | P.BOP_ITS ---
Brief Operative Note Date of Service: 05/22/23 Pre-op diagnosis: Chronic intractable low back pain, lumbar spondylosis Post-op diagnosis: same Procedure: Left L3 medial branch temporary nerve stimulator placement Implants: [employer] temporary PNS system Surgeon: SyedM. Jagdeep Price MD Anesthesia: local Was an Compress Machine Operator used for this Procedure?: No Estimated blood loss (mL): 1 Pathology: none sent Condition: stable Disposition: same day
[2023-05-22 12:44] VITALS: BP 126/80; PULSE 65; RESP 18; TEMP 36.8; O2SAT 98
--- NOTE | 2023-05-22 12:44 | W.PM.OPN ---
Operative Note Operative Note Date of Service: 05/22/23 Narrative: Lumbar Medial Branch Nerve Stimulation Lead Placement, SPR (Sprint) System, Left L3 Medial Branch ? After the risks, benefits and alternatives were discussed with the patient and informed consent was obtained, patient was placed in the prone position and padded to foster comfort. The skin overlying the lumbosacral spine was prepped and draped in sterile fashion. Fluoroscopy was used to identify the spinous process and lamina in the center of the patient?s region of pain. After identifying and marking the intended target along the course of the medial branch nerve, the skin around the planned entry point and the subcutaneous tissues were injected with lidocaine 1%. An introducer needle and stimulating probe were assembled, inserted and advanced along the intended course of the medial branch nerve as it traverses the lamina medial and inferior to the zygapophyseal joint, taking care to maintain the proper depth of insertion as the introducer is advanced under fluoroscopic guidance. The introducer needle was delivered to a location in proximity to the nerve. Multiple stimulation parameters were used to deliver stimulation to the target medial branch nerve in concert with stimulating at multiple positions around the nerve. Nerve target acquisition was confirmed noting generation of paresthesias in the paravertebral regions corresponding to the level being stimulated. Various electrical parameter combinations were tested, and the lead location was adjusted (physically relocated) until the patient indicated paresthesia/muscle tension overlapping the distribution of the patient?s typical region of pain. The stimulating probe was removed from the introducer and a percutaneous lead was guided through the needle and delivered to a location in similar proximity to the nerve. Final location was verified with electrical stimulation and documented with fluoroscopy. The introducer needle was removed, and the exposed end of the percutaneous lead was attached to an external stimulator unit. Various electrical parameter combinations were again tested until the patient indicated paresthesia or muscle tension overlapping the distribution of the patient?s typical region of pain. After confirming that lead impedance was in the normal range, the external unit was detached, the needle was removed, and the lead was anchored at the skin. The lead was threaded into the connector block and electrical continuity and desired patient response was confirmed. The connector block was attached to the external stimulator unit. The site was covered with a sterile occlusive dressing. The patient was observed for stability of vital signs and comfort.
== END 2023-05-22 12:57 | disposition home or self-care (01) ==
PROVIDERS: PCP Internal Medicine; Visit Provider Internal Medicine
PROC: (CPT 64555; principal; 2023-05-22 11:40)
DX: M47.816 Spondylosis without myelopathy or radiculopathy, lumbar region (principal); G89.29 Other chronic pain; M54.50 Low back pain, unspecified; Z79.899 Other long term (current) drug therapy; Z79.1 Long term (current) use of non-steroidal anti-inflammatories (NSAID)
CPT/HCPCS: 64555; C1778

== ENCOUNTER → 2023-05-27 09:09 | Outpatient (BNVA) | payer MEDICAID, SELFPAY | PROVIDERS: PCP Internal Medicine; Visit Provider Internal Medicine | DX: M47.816 Spondylosis without myelopathy or radiculopathy, lumbar region (principal) | CPT/HCPCS: 99212 ==

== ENCOUNTER 2023-06-13 08:45 | Outpatient (AMB) | payer MEDICAID, SELFPAY ==
[2023-06-13 08:48] VITALS: BP 102/64; PULSE 64; RESP 16; TEMP 36.2; O2SAT 99; BMI 20.6
--- NOTE | 2023-06-13 08:48 | MHC.OFFVIS ---
Intake Vital Signs 06/13/23 08:48 Height 5 ft 1 in Weight 108 lb 14.534 oz BMI 20.6 BP 102/64 Blood Pressure Location Lt brachial Position Sitting Respiration 16 Pulse 64 Pulse Source Pulse Oximeter Temp 97.2 F Temp Source Tympanic Pulse Oximetry (%) 99 Oxygen Delivery Method Room Air Intake Visit Reasons: sle Underwriting Sales Representative Required: No Accompanied by: Self / Same As Patient Allergies apple [Apple] Allergy (Severe, Verified 06/13/23 08:51) throat swelling tree nut [Tree Nut] Allergy (Severe, Verified 06/13/23 08:51) Swelling Medication List - Last Reconciled 06/13/23 by Chikis Truong RN albuterol sulfate 90 mcg/actuation 2 puffs inhalation Q6H PRN bupropion HCl 150 mg PO DAILY clonazepam 0.5 mg PO BEDTIME PRN ibuprofen 600 mg PO Q8H PRN loratadine 10 mg PO DAILY losartan 50 mg PO DAILY oxcarbazepine 600 mg PO BID propranolol 20 mg PO BID sertraline 50 mg PO DAILY zolpidem 10 mg PO BEDTIME PRN HPI HPI Comments History of Present Illness Details The patient presents for evaluation of her SLE. She says she has remained on hydroxychloroquine 200 mg daily. There have not been any problems with this. She says she has had an eye exam earlier this summer to monitor her hydroxychloroquine use. She has not had much in the way of joint pain outside of low back pain. The back bothers her every day, most of the time. It is worse with more physical activity. It radiates from the lumbar area to the buttock region. She has no change in bowel or bladder habits. She has a temporary neurostimulator in place which is helpful. There has been no problem recently with skin rashes, oral ulcers, abdominal pain or chest pain. [facility] Medical History (Updated 04/22/23 @ 11:57 by Armen Carr MD) Arthritis Asthma Bipolar disorder Depression History of COVID-19 Lupus Raynauds syndrome Surgical History H/O colonoscopy History of History of hysterectomy Hx of cholecystectomy Social History Alcohol intake: never Patient Tobacco Use Status: Former Tobacco user Quit Date: 2018 Tobacco use type: Cigarette Cigarettes Per Day: 7 Years Smoked: 15 e-Cigarette/Vaping Use: Never Used Review of Systems Const Details: Negative for appetite change, weight change, fever, chills, malaise and fatigue Eyes Details: Negative for vision change, dry eyes,headaches and dizziness ENT Details: Negative for hearing change, tinnitus, oral ulcer, nose bleeds and oral dryness. Card Details: Negative chest pain, edema and syncope Resp Details: Negative for SOB, cough and wheezing GI Details: Negative indigestion/heartburn, nausea, abdominal pain, bowel changes, diarrhea, constipation and bloody stool. Skin/Breast Details: Negative for itching, rash, hives, Raynaud's symptoms, sun sensitivity, and skin cancer Psych Details: anxiety, depression stable with current medications. Endo Details: Negative for polyuria and polydypsia Parker/Lymph Details: Negative for excessive bruising or bleeding. Physical Exam Vital Signs: Last Vital Signs Temp 97.2 F 06/13/23 08:48 Pulse 64 06/13/23 08:48 Resp 16 06/13/23 08:48 BP 102/64 06/13/23 08:48 Pulse Ox 99 06/13/23 08:48 Oxygen Delivery Method Room Air 06/13/23 08:48 BMI result Body Mass Index 20.6 APPEARANCE: Patient in no acute distress EYES no redness, pupils equal and reactive to light, eyelids normal EARS: External ear normal, canal clear and tympanic membrane normal. NOSE/SINUS: Airflow through both nares, no nasal discharge, no bleeding THROAT: Oral mucosa moist, no ulcerations NECK: No thyromegaly or masses, no adenopathy, trachea midline. HEART: Regulrar rhythm, S1-S2 heard, no murmurs, rubs or gallops. LUNG: Clear to percussion and auscultation ABD: Normal bowel sounds, no organomegaly, masses or tenderness. Extremities: No edema, no calf tenderness. JOINT EXAM:.?? Cervical Spine:.? Full range of motion without pain; no tenderness. Thoracic Spine:.? No scoliosis.? No tenderness on palpation. Lumbar Spine:.? Alignment normal.? She can only flex about 45 degrees.?? There is some paraspinal muscle tenderness. Chest Wall:.? No tenderness, swelling, increased warmth or erythema. Hands:.? Normal pain-free range of motion without tenderness, swelling, increased warmth or erythema. Able to make a full fist and has a good line assigner strength. Wrists:.? Normal pain-free range of motion without tenderness, swelling, increased warmth or erythema. Elbows:. Normal pain-free range of motion without tenderness, swelling, increased warmth or erythema. Shoulders:.?? Full range of motion without pain. No tenderness, weakness, swelling, increased warmth or erythema. Hips:.? Full range of motion without pain. Hip bursa:.? No tenderness. Knees:.?? Normal pain-free range of motion without tenderness, swelling, increased warmth or erythema.? There is no effusion or crepitation Ankles:.? Normal pain-free range of motion without tenderness, swelling, increased warmth or erythema. Feet:.? Normal pain-free range of motion without tenderness, swelling, increased warmth or erythema. Tender points:.? No tenderness to digital palpation at the occiput, trapezius, second rib, lateral epicondyle, knees, greater trochanter and gluteal area bilaterally. ? Results Reviewed Results Reviewed: Laboratory Tests 03/04/23 03/04/23 03/04/23 08:26 08:26 08:26 WBC 5.8 Hgb 12.1 Plt Count 273 ESR 6 Creatinine 0.80 C-Reactive Protein < 0.10 Double Strand DNA Ab Complement C3 Complement C4 03/04/23 08:26 WBC Hgb Plt Count ESR Creatinine C-Reactive Protein Double Strand DNA Ab 6 H Complement C3 94 Complement C4 28 Assessment & Plan Assessment & Plan (1) Lumbar spondylosis: Code(s): M47.816 - Spondylosis without myelopathy or radiculopathy, lumbar region (2) Lupus: Comment: dx 2012: pos MARIEL, SS-A, ds DNA arthralgias, Raynaud's Plaquenil since 2012 -last eye exam 01/2022, 04/16 Code(s): M32.9 - Systemic lupus erythematosus, unspecified Plan SLE with no clear activity of the lupus evident. She had slightly elevated anti DNA earlier this year but normal complements and acute phase reactants. We will continue with the hydroxychloroquine as above. The low back pain seems consistent with lumbar degenerative disease. She seems to be coping okay with that for now. She does plan follow-up with Pain Management. Follow-up in 6-8 months. Medications: New hydroxychloroquine 200 mg PO DAILY 90 tabs 2RF M32.9 - Systemic lupus erythematosus, unspecified Refilled ibuprofen 600 mg PO Q8H PRN 60 tabs 1RF pain M47.816 - Spondylosis without myelopathy or radiculopathy, lumbar region Coding Level of Care Code Est Pt Level 3 (80122) Diagnoses Lumbar spondylosis M47.816 Lupus M32.9
== END 2023-06-13 09:20 | disposition home or self-care (01) ==
PROVIDERS: PCP Internal Medicine; Visit Provider Internal Medicine Rheumatology
DX: M47.816 Spondylosis without myelopathy or radiculopathy, lumbar region (principal); M32.9 Systemic lupus erythematosus, unspecified
CPT/HCPCS: 99213

== ENCOUNTER → 2023-06-13 08:45 | Outpatient (BNVA) | payer MEDICAID, SELFPAY | PROVIDERS: PCP Internal Medicine; Visit Provider Internal Medicine Rheumatology | DX: M32.9 Systemic lupus erythematosus, unspecified (principal); M47.816 Spondylosis without myelopathy or radiculopathy, lumbar region | CPT/HCPCS: 99212 ==

== ENCOUNTER 2023-06-19 09:12 | Day surgery (SDC) | payer MEDICAID, SELFPAY ==
--- NOTE | ~2023-06-19 | FL_ITS ---
EXAMINATION: XR FLUOROSCOPY WITH IMAGES CLINICAL INFORMATION: Right lumbar SPRINT. COMPARISON: None available. TECHNIQUE: Fluoroscopy Supervised By: Dr. Liam Price. Fluoroscopy Time: 0.2 minutes. Cumulative Dose: 1.40 mGy. DAP: 0.0116 Gycm2. Images: 2. FINDINGS: There are 2 digital images revealing electrodes positioned adjacent to the L5 L4 spinous processes. Visualized L4, L5 vertebral heights are normal. Intervening disc heights are preserved as well. FL/FL guidance in OR IMPRESSION: Fluoroscopy guidance was provided to referring physician for pain management.
[2023-06-19 08:19] VITALS: BMI 19.8
[2023-06-19 09:20] VITALS: BP 105/84; PULSE 82; RESP 20; TEMP 36.1; O2SAT 97
--- NOTE | 2023-06-19 11:08 | MHC.SHP ---
Pre-Procedural Eval Section A Date of Service: 06/19/23 The patient is an INPATIENT: No Changes since office visit: Yes Patient answered all questions The History & Physical has been completed within 30 days and I have reviewed it.: Yes Section B Chief Complaint: Spondylosis without myelopathy or radiculopathy, Relevant Family History (Specify if Yes): No Relevant Social History: None Present Medications: see Short Stay Collaborative assessment Medical History: No relevant PMH History of Previous Operations: No relevant previous surgery Allergies: Allergies Allergy/AdvReac Type Severity Reaction Status Date / Time apple [Apple] Allergy Severe throat Verified 06/13/23 08:51 swelling tree nut [Tree Nut] Allergy Severe Swelling Verified 06/13/23 08:51 Review of Systems Sugical H&P ROS: Negative: Constitution, Cardiovascular and Respiratory Exam Surgical H&P Exam: Normal: HEENT, Normal: Heart and Normal: Lungs Plan Diagnosis/Plan: Unchanged I have reviewed the history and physical and performed a pertinent physical examination on my patient. No changes have occurred unless specified. Proceed with right L3 medial branch nerve stimulator placement Time Spent With Patient Time: Total time managing care of this patient today ____ minutes.
--- NOTE | 2023-06-19 11:08 | PM.OP ---
Brief Operative Note Date of Service: 06/19/23 Pre-op diagnosis: Intractable low back pain Post-op diagnosis: same Procedure: Temporary right L3 medial branch nerve stimulator placement Implants: Sprint temporary PNS system Surgeon: Liam Price MD Anesthesia: local Was an Object Oriented Developer used for this Procedure?: No Estimated blood loss (mL): 1 Pathology: none sent Condition: stable Disposition: same day
[2023-06-19 11:09] VITALS: BP 126/75; PULSE 74; RESP 16; TEMP 37.1; O2SAT 100
--- NOTE | 2023-06-19 11:09 | W.PM.OPN ---
Operative Note Operative Note Date of Service: 06/19/23 Narrative: Lumbar Medial Branch Nerve Stimulation Lead Placement, SPR (Sprint) System, Right L3 medial branch ? After the risks, benefits and alternatives were discussed with the patient and informed consent was obtained, patient was placed in the prone position and padded to foster comfort. The skin overlying the lumbosacral spine was prepped and draped in sterile fashion. Fluoroscopy was used to identify the spinous process and lamina in the center of the patient?s region of pain. After identifying and marking the intended target along the course of the medial branch nerve, the skin around the planned entry point and the subcutaneous tissues were injected with lidocaine 1%. An introducer needle and stimulating probe were assembled, inserted and advanced along the intended course of the medial branch nerve as it traverses the lamina medial and inferior to the zygapophyseal joint, taking care to maintain the proper depth of insertion as the introducer is advanced under fluoroscopic guidance. The introducer needle was delivered to a location in proximity to the nerve. Multiple stimulation parameters were used to deliver stimulation to the target medial branch nerve in concert with stimulating at multiple positions around the nerve. Nerve target acquisition was confirmed noting generation of paresthesias in the paravertebral regions corresponding to the level being stimulated. Various electrical parameter combinations were tested, and the lead location was adjusted (physically relocated) until the patient indicated paresthesia/muscle tension overlapping the distribution of the patient?s typical region of pain. The stimulating probe was removed from the introducer and a percutaneous lead was guided through the needle and delivered to a location in similar proximity to the nerve. Final location was verified with electrical stimulation and documented with fluoroscopy. The introducer needle was removed, and the exposed end of the percutaneous lead was attached to an external stimulator unit. Various electrical parameter combinations were again tested until the patient indicated paresthesia or muscle tension overlapping the distribution of the patient?s typical region of pain. After confirming that lead impedance was in the normal range, the external unit was detached, the needle was removed, and the lead was anchored at the skin. The lead was threaded into the connector block and electrical continuity and desired patient response was confirmed. The connector block was attached to the external stimulator unit. The site was covered with a sterile occlusive dressing. The patient was observed for stability of vital signs and comfort.
== END 2023-06-19 11:22 | disposition home or self-care (01) ==
PROVIDERS: PCP Internal Medicine; Visit Provider Internal Medicine
PROC: (CPT 64555; principal; 2023-06-19 10:00)
DX: M47.816 Spondylosis without myelopathy or radiculopathy, lumbar region (principal); G89.29 Other chronic pain; M54.50 Low back pain, unspecified; Z79.1 Long term (current) use of non-steroidal anti-inflammatories (NSAID); Z79.899 Other long term (current) drug therapy
CPT/HCPCS: 64555; C1778

== ENCOUNTER → 2023-06-19 09:12 | Outpatient (BNV) | payer MEDICAID, SELFPAY | PROVIDERS: PCP Internal Medicine; Visit Provider Internal Medicine | DX: M54.50 Low back pain, unspecified (principal) | CPT/HCPCS: 64555 ==

== ENCOUNTER 2023-06-24 08:04 | Outpatient (AMB) | payer MEDICAID, SELFPAY ==
--- NOTE | 2023-06-24 08:08 | MHC.OFFVIS ---
Intake Vital Signs 06/24/23 08:09 Height 5 ft 1 in Weight 110 lb 8 oz BMI 20.9 BP 122/68 Blood Pressure Location Rt brachial Position Sitting Pulse 64 Pulse Source Pulse Oximeter Pulse Oximetry (%) 98 Oxygen Delivery Method Room Air Intake Visit Reasons: s/p right L3 Sprint Regulatory Auditor Required: No Accompanied by: Self / Same As Patient Allergies apple [Apple] Allergy (Severe, Verified 06/24/23 08:09) throat swelling tree nut [Tree Nut] Allergy (Severe, Verified 06/24/23 08:09) Swelling HPI s/p right L3 Sprint HPI Details 47-year-old female presenting today for a status post right L3 Sprint. The patient endorses appropriate paresthesia sensation from the device. She has changed dressing at home. Her device setting is currently at 30. She reports sensitivity on the right side from the procedure so she is titrating up her stimulation level slowly. Past procedures: 06/19/23: Lumbar Medial Branch Nerve Stimulation Lead Placement, SPR (Sprint) System, Right L3 medial branch: Therapy ongoing 05/22/23: Lumbar Medial Branch Nerve Stimulation Lead Placement, SPR (Sprint) System, Left L3 Medial Branch: 50% relief. 12/19/22: Lumbar Medial Branch Block, Bilateral L3, L4 medial branches and L5 Dorsal Ramus (2 levels, 3 nerves): 75% relief. 09/26/22: Lumbar Medial Branch Block, Bilateral L3, L4 medial branches and L5 Dorsal Ramus (2 levels, 3 nerves): 75% relief. [facility] Medical History (Updated 06/24/23 @ 09:22 by Liam Price MD) Arthritis Asthma Bipolar disorder Depression History of COVID-19 Lupus Raynauds syndrome Surgical History H/O colonoscopy History of History of hysterectomy Hx of cholecystectomy Social History Alcohol intake: never Patient Tobacco Use Status: Former Tobacco user Quit Date: 2018 Tobacco use type: Cigarette Cigarettes Per Day: 7 Years Smoked: 15 e-Cigarette/Vaping Use: Never Used Review of Systems Const All systems reviewed & are unremarkable except as noted in HPI and below Physical Exam Vital Signs: Last Vital Signs Pulse 64 06/24/23 08:09 BP 122/68 06/24/23 08:09 Pulse Ox 98 06/24/23 08:09 Oxygen Delivery Method Room Air 06/24/23 08:09 BMI result Body Mass Index 20.9 General: Appears afebrile. Alert and oriented. Mood and affect appropriate. Follows and participates in conversation appropriately. Respiratory effort is unlabored. Able to transition from sit to stand unassisted. Ambulates with bilaterally normal heel strike and toe off. Lead insertion site is clean dry and intact. Results Reviewed Results Reviewed: No imaging is available for review. Assessment & Plan Assessment & Plan (1) Lumbar spondylosis: Code(s): M47.816 - Spondylosis without myelopathy or radiculopathy, lumbar region (2) Chronic intractable pain: Code(s): G89.29 - Other chronic pain Plan The patient will follow-up in seven weeks for removal of Sprint. The dressing was changed today at the office. Scribed for Dr. Price by Bryn Geronimo, medical laboratory technologist, on 06/24/2023. I, Dr. Price, have personally reviewed and agree with the information entered by the scribe. Coding Level of Care Code Est Pt Level 3 (12778) Diagnoses Lumbar spondylosis M47.816 Chronic intractable pain G89.29
[2023-06-24 08:09] VITALS: BP 122/68; PULSE 64; O2SAT 98; BMI 20.9
== END 2023-06-24 08:44 | disposition home or self-care (01) ==
PROVIDERS: PCP Internal Medicine; Visit Provider Internal Medicine
DX: M47.816 Spondylosis without myelopathy or radiculopathy, lumbar region (principal); G89.29 Other chronic pain
CPT/HCPCS: 99213

== ENCOUNTER → 2023-06-24 08:04 | Outpatient (BNVA) | payer MEDICAID, SELFPAY | PROVIDERS: PCP Internal Medicine; Visit Provider Internal Medicine | DX: M47.816 Spondylosis without myelopathy or radiculopathy, lumbar region (principal); G89.29 Other chronic pain | CPT/HCPCS: 99212 ==

== ENCOUNTER 2023-08-16 07:58 | Outpatient (AMB) | payer MEDICAID, SELFPAY ==
[2023-08-16 08:07] VITALS: BP 116/71; PULSE 68; RESP 14; O2SAT 98; BMI 21.0
--- NOTE | 2023-08-16 08:07 | A.OFFVIS_ITS ---
Intake Vital Signs 08/16/23 08:07 Height 5 ft 1 in Weight 111 lb BMI 21.0 BP 116/71 Blood Pressure Location Lt brachial Position Sitting Respiration 14 Pulse 68 Pulse Source Pulse Oximeter Pulse Oximetry (%) 98 Oxygen Delivery Method Room Air Intake Visit Reasons: Sprint removal Allergies apple [Apple] Allergy (Severe, Verified 08/16/23 08:08) throat swelling tree nut [Tree Nut] Allergy (Severe, Verified 08/16/23 08:08) Swelling Medication List - Last Reconciled 08/16/23 by Key Cespedes LPN albuterol sulfate 90 mcg/actuation 2 puffs inhalation Q6H PRN aripiprazole 5 mg PO QAM bupropion HCl 300 mg PO DAILY clonazepam 0.5 mg PO BEDTIME PRN hydroxychloroquine 200 mg PO DAILY ibuprofen 600 mg PO Q8H PRN loratadine 10 mg PO DAILY losartan 50 mg PO DAILY naproxen 500 mg PO BID omeprazole 20 mg PO DAILY oxcarbazepine 600 mg PO BID propranolol 20 mg PO BID sertraline 150 mg PO DAILY zolpidem 10 mg PO BEDTIME PRN HPI Sprint removal HPI Details 47-year-old female who presents today to the office for a sprint removal. The patient reports significant ongoing relief from the last procedure. The patient states that her pain is worse when she is not using the device. Past procedures: 06/19/23: Lumbar Medial Branch Nerve Stim ulation Lead Placement, SPR (Sprint) System, Right L3 medial branch: 50% relief. 05/22/23: Lumbar Medial Branch Nerve Sti mulation Lead Placement, SPR (Sprint) System, Left L3 Medial Branch: 50% relief. 12/19/22: Lumbar Medial Branch Block, Bi lateral L3, L4 medial branches and L5 Dorsal Ramus (2 levels, 3 nerves): 75% relief. 09/26/22: Lumbar Medial Branch Block, Bi lateral L3, L4 medial branches and L5 Dorsal Ramus (2 levels, 3 nerves): 75% relief. [facility] Medical History (Updated 06/24/23 @ 09:22 by Liam Price MD) History of COVID-19 Bipolar disorder Depression Arthritis Raynauds syndrome Asthma Lupus Surgical History H/O colonoscopy History of History of hysterectomy Hx of cholecystectomy Social History Alcohol intake: never Patient Tobacco Use Status: Former Tobacco user Quit Date: 2018 Tobacco use type: Cigarette Cigarettes Per Day: 7 Years Smoked: 15 e-Cigarette/Vaping Use: Never Used Review of Systems Const All systems reviewed & are unremarkable except as noted in HPI and below Physical Exam Vital Signs: Last Vital Signs Pulse 68 08/16/23 08:07 Resp 14 08/16/23 08:07 BP 116/71 08/16/23 08:07 Pulse Ox 98 08/16/23 08:07 Oxygen Delivery Method Room Air 08/16/23 08:07 BMI result Body Mass Index 21.0 General: Appears afebrile. Alert and oriented. Mood and affect appropriate. Follows and participates in conversation appropriately. Respiratory effort is unlabored. Able to transition from sit to stand unassisted. Ambulates with bilaterally normal heel strike and toe off. Results Reviewed Results Reviewed: No imaging is available for review. Assessment & Plan Assessment & Plan (1) Chronic intractable pain: Code(s): G89.29 - Other chronic pain Plan The site was clean, dry, and intact. The Sprint device was removed today in the office. I encouraged the patient to continue with home exercise program including stretching and core strengthening. The patient will follow up as needed for pain. If pain symptoms got worse again, we can consider a more permanent implantable therapy. Scribed for Dr. Price by Bryn Geronimo, medical assistant supervisor, on 08/16/2023. I, Dr. Price, have personally reviewed and agree with the information entered by the scribe. Coding Level of Care Code Est Pt Level 3 (28277) Diagnoses Chronic intractable pain G89.29
== END 2023-08-16 08:21 | disposition home or self-care (01) ==
PROVIDERS: PCP Internal Medicine; Visit Provider Internal Medicine
DX: G89.29 Other chronic pain (principal)
CPT/HCPCS: 99213

== ENCOUNTER → 2023-08-16 07:58 | Outpatient (BNVA) | payer MEDICAID, SELFPAY | PROVIDERS: Visit Provider Internal Medicine | DX: Z48.89 Encounter for other specified surgical aftercare (principal); G89.29 Other chronic pain | CPT/HCPCS: 99212 ==

== ENCOUNTER 2023-09-23 08:27 | Outpatient (REF) | payer MEDICAID, SELFPAY ==
[2023-09-23 11:05] LABS: MANUAL DIFF FLAG NO
[2023-09-23 11:08] LABS: Basophils Absolute Auto 0.1 X10*3/uL (0.0-0.2); Basophils Percent Auto 1.2 % (0-2); Eosinophils Absolute Auto 0.2 X10*3/uL (0.0-0.4); Eosinophils Percent Auto 3.2 % (0-4); Hematocrit 34.1 % (37.0-47.0); Imm Gran Abs Auto 0.01 X10*3/uL (0.00-0.03); Imm Gran Pct Auto 0.2 % (0.0-0.4); Lymphocytes Absolute Auto 2.2 X10*3/uL (1.2-4.9); Lymphocytes Percent Auto 44.5 % (20-40); Mean Corpuscular HGB Conc 35.2 g/dl (31.0-35.0); Mean Corpuscular Hemoglobin 25.6 pg (27.0-33.0); Mean Corpuscular Volume 72.9 fL (80.0-98.0); Mean Platelet Volume 10.2 fL (9.4-12.3); Monocytes Absolute Auto 0.4 X10*3/uL (0.1-1.2); Neutrophils Absolute Auto 2.2 x10*3/uL (2.0-8.3); Neutrophils Percent Auto 43.9 % (45-73); Platelet Count 288 X10*3/uL (160-400); Red Blood Count 4.68 X10*6/uL (4.20-5.50)
[2023-09-23 11:24] LABS: Alanine Aminotransferase 14 U/L (0-31); Albumin Level 4.4 g/dL (3.5-5.0); Alkaline Phosphatase 70 U/L (39-117); Anion Gap 13 (12-20); Aspartate Amino Transferase 20 U/L (5-31); Bilirubin Total 0.3 mg/dL (0.0-1.0); Blood Urea Nitrogen 11 mg/dL (9-16); Calcium 9.8 mg/dL (8.4-10.2); Carbon Dioxide 24 mmol/L (22-29); Chloride 106 mmol/L (96-108); Cholesterol 142 mg/dL (<200); Estimated Glomerular Filt Rate > 60; Glucose Random 82 mg/dL (60-115); HDL Cholesterol 47 mg/dL (>40); LDL Cholesterol Calculated 78 mg/dL (<100); Potassium 3.7 mmol/L (3.3-5.1); Sodium 139 mmol/L (135-145); Total Protein 8.1 g/dL (6.5-8.0); Triglycerides 87 mg/dL (<150)
[2023-09-23 11:58] LABS: Creatinine Urine 128.36 mg/dL; Total Protein Urine Random < 7 mg/dL (<12)
== END 2023-09-23 08:28 | disposition home or self-care (01) ==
LOC: HO.10HDL 08:27
PROVIDERS: Visit Provider Internal Medicine
DX: M25.551 Pain in right hip (principal); M32.9 Systemic lupus erythematosus, unspecified; M43.06 Spondylolysis, lumbar region; M54.50 Low back pain, unspecified
CPT/HCPCS: 36415; 80053; 80061; 82570; 84156; 85025

== ENCOUNTER 2024-02-04 08:02 | Outpatient (AMB) | payer MEDICAID, SELFPAY ==
--- NOTE | 2024-02-04 08:03 | MHC.OFFVIS ---
Intake Vital Signs 02/04/24 08:04 Height 5 ft 1 in Weight 111 lb 15.917 oz BMI 21.2 BP 104/62 Blood Pressure Location Rt brachial Position Sitting Pulse 78 Pulse Source Pulse Oximeter Temp 96.8 F Temp Source Skin Pulse Oximetry (%) 96 Oxygen Delivery Method Room Air Intake Visit Reasons: sle Intake Note: Patient last seen 06/13/23 presents today for follow up. 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: No Allergies apple [Apple] Allergy (Severe, Verified 02/04/24 08:07) throat swelling tree nut [Tree Nut] Allergy (Severe, Verified 02/04/24 08:07) Swelling Medication List - Last Reconciled 02/04/24 by Kellen Pena MD albuterol sulfate 90 mcg/actuation 2 puffs inhalation Q6H PRN aripiprazole 5 mg PO QAM bupropion HCl 300 mg PO DAILY clonazepam 0.5 mg PO BEDTIME PRN hydroxychloroquine 200 mg PO DAILY ibuprofen 600 mg PO Q8H PRN loratadine 10 mg PO DAILY losartan 50 mg PO DAILY omeprazole 20 mg PO DAILY oxcarbazepine 600 mg PO BID propranolol 20 mg PO BID sertraline 150 mg PO DAILY zolpidem 10 mg PO BEDTIME PRN HPI HPI Comments History of Present Illness Details 48-year-old female with SLE returns for follow-up. She remains on hydroxychloroquine 200 mg daily. States that she feels about the same overall. Continues to have diffuse spinal pain. She states that the most recent procedure done by Pain Management gave her at least moderate relief. Most recent history by Dr. Carr's 05/2023: The patient presents for evaluation of her SLE. She says she has remained on hydroxychloroquine 200 mg daily. There have not been any problems with this. She says she has had an eye exam earlier this summer to monitor her hydroxychloroquine use. She has not had much in the way of joint pain outside of low back pain. The back bothers her every day, most of the time. It is worse with more physical activity. It radiates from the lumbar area to the buttock region. She has no change in bowel or bladder habits. She has a temporary neurostimulator in place which is helpful. There has been no problem recently with skin rashes, oral ulcers, abdominal pain or chest pain. PFSH Medical History History of COVID-19 Bipolar disorder Depression Arthritis Raynauds syndrome Asthma Lupus Surgical History History of H/O colonoscopy Hx of cholecystectomy History of hysterectomy Social History Alcohol intake: never Patient Tobacco Use Status: Former Tobacco user Quit Date: 2018 Tobacco use type: Cigarette Cigarettes Per Day: 7 Years Smoked: 15 e-Cigarette/Vaping Use: Never Used Review of Systems ENT Reports neck pain Musc Reports back pain and Reports neck pain Physical Exam Vital Signs: Last Vital Signs Temp 96.8 F 02/04/24 08:04 Pulse 78 02/04/24 08:04 BP 104/62 02/04/24 08:04 Pulse Ox 96 02/04/24 08:04 Oxygen Delivery Method Room Air 02/04/24 08:04 BMI result Body Mass Index 21.2 Const General: cooperative, healthy appearing and comfortable Nutritional Appearance: average body habitus Orientation/consciousness: patient oriented x3 Limitations: no limitations HEENT Head: Yes normocephalic and Yes atraumatic Mouth: moist mucous membranes Resp Effort & Inspection: normal respiratory effort and able to speak in complete sentences Auscultation: clear to auscultation bilaterally Cardio Rate: regular rate Rhythm: regular rhythm GI Inspection: No distended Palpation (GI): Soft to palpation and nontender Skin General skin exam: no rashes or lesions noted Neuro General: patient oriented x3 Extrem Other: No active synovitis Mild soft tissue swelling on radial aspect of right hand, not erythematous, warm or tender Normal nailfold capillaroscopy Positive straight leg raise test bilaterally Results Reviewed Results Reviewed: Labs 2012 lupus anticoagulant negative, beta 2 glycoprotein, ACL antibodies negative Labs 2017 beta 2 glycoprotein and anticardiolipin antibodies negative Assessment & Plan Assessment & Plan (1) Lupus: Comment: dx 2012: pos MARIEL, SS-A, ds DNA arthralgias, Raynaud's Plaquenil since 2012 -last eye exam 01/2022, 04/16 Code(s): M32.9 - Systemic lupus erythematosus, unspecified Plan: 48-year-old female with SLE returns for follow-up. This is her 1st visit with me. She used to follow-up with Dr. Carr. On exam, patient looks well with no signs of SLE activity. Will check SLE activity labs. Follow-up in about 6 weeks. 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 Most recent eye exam 03/2023 unremarkable Plan I spent 30 minutes reviewing patient's chart, evaluating patient, ordering diagnostic workup, counseling patient and documenting in the chart Orders: Orders C Reactive Protein Today M32.9 - Systemic lupus erythematosus, unspecified UA w Microscopic Today M32.9 - Systemic lupus erythematosus, unspecified Complete Blood Count Auto Diff Today M32.9 - Systemic lupus erythematosus, unspecified Comprehensive Met. Panel Today M32.9 - Systemic lupus erythematosus, unspecified Anti DNA DS Antibody Today M32.9 - Systemic lupus erythematosus, unspecified Complement C3 Today M32.9 - Systemic lupus erythematosus, unspecified Complement C4 Today M32.9 - Systemic lupus erythematosus, unspecified Erythrocyte Sedimentation Rate Today M32.9 - Systemic lupus erythematosus, unspecified Protein Creatinine Ratio, Ur Today M32.9 - Systemic lupus erythematosus, unspecified XR hand wrist RT Today M25.441 - Effusion, right hand Medications: Refilled hydroxychloroquine 200 mg PO DAILY 90 tabs 1RF M32.9 - Systemic lupus erythematosus, unspecified Coding Level of Care Code Est Pt Level 4 (88387) Diagnoses Lupus M32.9 Long-term use of hydroxychloroquine Z79.899
[2024-02-04 08:04] VITALS: BP 104/62; PULSE 78; TEMP 36; O2SAT 96; BMI 21.2
== END 2024-02-04 08:21 | disposition home or self-care (01) ==
PROVIDERS: PCP Internal Medicine; Referring Provider Internal Medicine; Visit Provider Student in an Organized Health Care Education/Training Program
DX: M32.9 Systemic lupus erythematosus, unspecified (principal); Z79.899 Other long term (current) drug therapy
CPT/HCPCS: 99214

== ENCOUNTER → 2024-02-04 08:02 | Outpatient (BNVA) | payer MEDICAID, SELFPAY | PROVIDERS: PCP Internal Medicine; Visit Provider Student in an Organized Health Care Education/Training Program ==

== ENCOUNTER 2024-02-04 08:26 | Outpatient (REF) | payer MEDICAID, SELFPAY ==
[2024-02-04 10:49] LABS: MANUAL DIFF FLAG NO
[2024-02-04 10:54] LABS: Basophils Absolute Auto 0.1 X10*3/uL (0.0-0.2); Basophils Percent Auto 1.2 % (0-2); Eosinophils Absolute Auto 0.1 X10*3/uL (0.0-0.4); Eosinophils Percent Auto 2.2 % (0-4); Hematocrit 33.1 % (37.0-47.0); Hemoglobin 11.9 g/dl (12.0-16.0); Imm Gran Abs Auto 0.01 X10*3/uL (0.00-0.03); Imm Gran Pct Auto 0.2 % (0.0-0.4); Lymphocytes Absolute Auto 2.2 X10*3/uL (1.2-4.9); Mean Corpuscular Hemoglobin 25.9 pg (27.0-33.0); Mean Corpuscular Volume 72.1 fL (80.0-98.0); Mean Platelet Volume 9.9 fL (9.4-12.3); Monocytes Absolute Auto 0.4 X10*3/uL (0.1-1.2); Monocytes Percent Auto 6.3 % (2-11); Neutrophils Absolute Auto 3.1 x10*3/uL (2.0-8.3); Neutrophils Percent Auto 53.1 % (45-73); Platelet Count 305 X10*3/uL (160-400); Red Blood Count 4.59 X10*6/uL (4.20-5.50); Red Cell Distribution Width 12.8 % (11.0-16.0); White Blood Count 5.8 X10*3/uL (4.8-10.8)
[2024-02-04 10:57] LABS: Appearance Urine Clear; Color Urine Yellow; Glucose Urine UA Negative (Negative); Leukocyte Esterase Urine Negative (Negative); Nitrite Urine Negative (Negative); PH 5.5 (5.0-9.0); Urine Blood Negative (Negative); Urine Ketones Negative (Negative); Urine Protein Negative (Neg-Trace)
[2024-02-04 11:00] LABS: Bacteria Urine Trace (None Seen); Hyaline Casts Urine 0-2 /LPF (0-2); RBC Urine 0-2 /HPF (0-2); WBC Urine 0-5 /HPF (0-5)
[2024-02-04 11:12] LABS: Alanine Aminotransferase 14 U/L (0-31); Albumin Level 4.3 g/dL (3.5-5.0); Alkaline Phosphatase 76 U/L (39-117); Anion Gap 10 (12-20); Aspartate Amino Transferase 20 U/L (5-31); Bilirubin Total 0.2 mg/dL (0.0-1.0); Blood Urea Nitrogen 14 mg/dL (9-16); C Reactive Protein 0.25 mg/dL (< or = 0.50); Calcium 9.2 mg/dL (8.4-10.2); Carbon Dioxide 25 mmol/L (22-29); Chloride 108 mmol/L (96-108); Estimated Glomerular Filt Rate > 60; Glucose Random 82 mg/dL (60-115); Potassium 3.9 mmol/L (3.3-5.1); Sodium 139 mmol/L (135-145); Total Protein 7.9 g/dL (6.5-8.0)
[2024-02-04 11:38] LABS: Erythrocyte Sedimentation Rate 12 MM/HR (0-20)
[2024-02-04 12:17] LABS: Creatinine Urine 142.41 mg/dL; Protein/Creatinine Ratio, Ur 0.06 (<0.2); Total Protein Urine Random 9 mg/dL (<12)
[2024-02-05 08:33] LABS: Complement C3 89 mg/dL (83-193)
[2024-02-05 14:28] LABS: Anti DNA DS Antibody 6 IU/mL
== END 2024-02-04 08:27 | disposition home or self-care (01) ==
LOC: HO.10HDL 08:26
PROVIDERS: Visit Provider Student in an Organized Health Care Education/Training Program
DX: M32.9 Systemic lupus erythematosus, unspecified (principal); I73.00 Raynaud's syndrome without gangrene; Z79.899 Other long term (current) drug therapy
CPT/HCPCS: 36415; 80053; 81001; 82570; 84156; 85025; 85652; 86140; 86160; 86225; 99212

== ENCOUNTER 2024-03-19 08:10 | Outpatient (AMB) | payer MEDICAID, SELFPAY ==
[2024-03-19 08:18] VITALS: BP 110/62; PULSE 74; O2SAT 98; BMI 21.5
--- NOTE | 2024-03-19 08:18 | MHC.OFFVIS ---
Vital Signs 03/19/24 08:18 Height 5 ft 1 in Weight 113 lb 15.664 oz BMI 21.5 BP 110/62 Blood Pressure Location Rt brachial Position Sitting Pulse 74 Pulse Source Pulse Oximeter Pulse Oximetry (%) 98 Oxygen Delivery Method Room Air Intake Visit Reasons: SLE Intake Note: Patient last seen 02/04/24 presents today for follow up and test results. Environmental Coordinator Required: No Accompanied by: Self / Same As Patient Allergies apple [Apple] Allergy (Severe, Verified 03/19/24 08:22) throat swelling tree nut [Tree Nut] Allergy (Severe, Verified 03/19/24 08:22) Swelling Medication List - Last Reconciled 03/19/24 by Kellen Pena MD albuterol sulfate 90 mcg/actuation 2 puffs inhalation Q6H PRN aripiprazole 5 mg PO QAM bupropion HCl XL 300 mg PO DAILY clonazepam 0.5 mg PO BEDTIME PRN hydroxychloroquine 200 mg PO DAILY ibuprofen 600 mg PO Q8H PRN loratadine 10 mg PO DAILY losartan 50 mg PO DAILY omeprazole 20 mg PO DAILY oxcarbazepine 600 mg PO BID propranolol 20 mg PO BID sertraline 150 mg PO DAILY zolpidem 10 mg PO BEDTIME PRN HPI Comments Details: 48-year-old female with SLE returns for follow-up. She remains on hydroxychloroquine 200 mg daily. States that she feels about the same overall. She is doing well with no swollen joints. No fevers or skin rashes. Most recent history by Dr. Carr's 05/2023: The patient presents for evaluation of her SLE. She says she has remained on hydroxychloroquine 200 mg daily. There have not been any problems with this. She says she has had an eye exam earlier this summer to monitor her hydroxychloroquine use. She has not had much in the way of joint pain outside of low back pain. The back bothers her every day, most of the time. It is worse with more physical activity. It radiates from the lumbar area to the buttock region. She has no change in bowel or bladder habits. She has a temporary neurostimulator in place which is helpful. There has been no problem recently with skin rashes, oral ulcers, abdominal pain or chest pain. [facility] Medical History History of COVID-19 Bipolar disorder Depression Arthritis Raynauds syndrome Asthma Lupus Surgical History History of H/O colonoscopy Hx of cholecystectomy History of hysterectomy Social History Alcohol intake: never Patient Tobacco Use Status: Former Tobacco user Quit Date: 2018 Tobacco use type: Cigarette Cigarettes Per Day: 7 Years Smoked: 15 e-Cigarette/Vaping Use: Never Used Review of Systems ENT Reports neck pain Musc Reports neck pain Physical Exam Vital Signs: Last Vital Signs Pulse 74 03/19/24 08:18 BP 110/62 03/19/24 08:18 Pulse Ox 98 03/19/24 08:18 Oxygen Delivery Method Room Air 03/19/24 08:18 BMI result Body Mass Index 21.5 Const General: cooperative, healthy appearing and comfortable Nutritional Appearance: average body habitus Orientation/consciousness: patient oriented x3 Limitations: no limitations HEENT Head: Yes normocephalic and Yes atraumatic Mouth: moist mucous membranes Resp Effort & Inspection: normal respiratory effort and able to speak in complete sentences Auscultation: clear to auscultation bilaterally Cardio Rate: regular rate Rhythm: regular rhythm GI Inspection: No distended Palpation (GI): Soft to palpation and nontender Skin General skin exam: no rashes or lesions noted Neuro General: patient oriented x3 Extrem Other: No active synovitis Normal nailfold capillaroscopy Results Reviewed Results Reviewed: Labs 2012 lupus anticoagulant negative, beta 2 glycoprotein, ACL antibodies negative Labs 2017 beta 2 glycoprotein and anticardiolipin antibodies negative Assessment & Plan Assessment & Plan (1) Lupus: Comment: dx 2013: pos MARIEL, SS-A, ds DNA arthralgias, Raynaud's Plaquenil since 2012 -last eye exam 01/2022, 04/16 Code(s): M32.9 - Systemic lupus erythematosus, unspecified Category: Medical Plan: 48-year-old female with SLE returns for follow-up. On exam, patient looks well with no signs of SLE activity. SLE activity labs unremarkable. 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 Most recent eye exam 03/2023 unremarkable Plan I spent 20 minutes reviewing patient's chart, evaluating patient, ordering diagnostic workup, counseling patient and documenting in the chart Orders: Orders Complement C4 6 Months M32.9 - Systemic lupus erythematosus, unspecified C Reactive Protein 6 Months M32.9 - Systemic lupus erythematosus, unspecified Protein Creatinine Ratio, Ur 6 Months M32.9 - Systemic lupus erythematosus, unspecified Complete Blood Count Auto Diff 6 Months M32.9 - Systemic lupus erythematosus, unspecified Comprehensive Met. Panel 6 Months M32.9 - Systemic lupus erythematosus, unspecified Anti DNA DS Antibody 6 Months M32.9 - Systemic lupus erythematosus, unspecified Complement C3 6 Months M32.9 - Systemic lupus erythematosus, unspecified Erythrocyte Sedimentation Rate 6 Months M32.9 - Systemic lupus erythematosus, unspecified UA w Microscopic 6 Months M32.9 - Systemic lupus erythematosus, unspecified Coding Level of Care Code Est Pt Level 4 (06228) Diagnoses Lupus M32.9 Long-term use of hydroxychloroquine Z79.899
== END 2024-03-19 08:32 | disposition home or self-care (01) ==
PROVIDERS: PCP Internal Medicine; Referring Provider Internal Medicine; Visit Provider Student in an Organized Health Care Education/Training Program
DX: M32.9 Systemic lupus erythematosus, unspecified (principal); Z79.899 Other long term (current) drug therapy
CPT/HCPCS: 99214

== ENCOUNTER → 2024-03-19 08:10 | Outpatient (BNVA) | payer MEDICAID, SELFPAY | PROVIDERS: PCP Internal Medicine; Visit Provider Student in an Organized Health Care Education/Training Program | DX: M32.9 Systemic lupus erythematosus, unspecified (principal); Z79.899 Other long term (current) drug therapy | CPT/HCPCS: 99212 ==

== ENCOUNTER 2024-07-06 10:19 | Outpatient (REF) | payer MEDICAID, SELFPAY ==
--- NOTE | ~2024-07-06 | MM_ITS ---
EXAMINATION: MM SCREENING DIGITAL BREAST TOMOSYNTHESIS, BILATERAL CLINICAL INFORMATION: Screening. Asymptomatic. COMPARISON: Mammography: This study is compared with prior exams dating back to 2019. TECHNIQUE: Digital breast tomosynthesis is performed in both the craniocaudal and mediolateral oblique views along with computer-aided detection (CAD). Synthesized 2D images are generated from the tomosynthesis. FINDINGS: There are scattered areas of fibroglandular density (ACR BI-RADS breast composition Category b). There are no significant masses, abnormal calcifications, or other abnormalities. MM/MM tomosynthesis screening BI IMPRESSION: No mammographic evidence of malignancy. ASSESSMENT: BI-RADS BI-RADS 1 - Negative RECOMMENDATION: Routine annual mammography screening. 1 year F/U This examination should not preclude the clinical evaluation of a suspicious palpable abnormality. This patient's information was entered into a reminder system with a target due date for their next mammogram. Electronically signed by: Sis Artis MD 07/30/2024 02:58 PM EDT
== END 2024-07-06 10:20 | disposition home or self-care (01) ==
LOC: HO.MAMMO 10:19
PROVIDERS: PCP Internal Medicine; Visit Provider Internal Medicine
DX: Z12.31 Encounter for screening mammogram for malignant neoplasm of breast (principal)
CPT/HCPCS: 77063; 77067

== ENCOUNTER → 2024-07-06 10:30 | Outpatient (BNV) | payer MEDICAID, SELFPAY | PROVIDERS: PCP Internal Medicine; Visit Provider Radiology Diagnostic Radiology | DX: Z12.31 Encounter for screening mammogram for malignant neoplasm of breast (principal) | CPT/HCPCS: 77063; 77067 ==

== ENCOUNTER 2024-09-16 09:29 | Outpatient (REF) | payer MEDICAID, SELFPAY ==
[2024-09-16 09:56] LABS: MANUAL DIFF FLAG NO
[2024-09-16 10:18] LABS: Appearance Urine Clear; Color Urine Yellow; Glucose Urine UA Negative (Negative); Leukocyte Esterase Urine Negative (Negative); Nitrite Urine Negative (Negative); Specific Gravity - Urine 1.015 (1.005-1.025); Urine Blood Negative (Negative); Urine Ketones Negative (Negative); Urine Protein Negative (Neg-Trace)
[2024-09-16 10:22] LABS: Bacteria Urine None Seen (None Seen); Hyaline Casts Urine 0-2 /LPF (0-2); RBC Urine 0-2 /HPF (0-2); Squamous Epithelial Cell Urine 0-2 /HPF (0-2); WBC Urine 0-5 /HPF (0-5)
[2024-09-16 10:30] LABS: Basophils Absolute Auto 0.1 X10*3/uL (0.0-0.2); Basophils Percent Auto 1.1 % (0-2); Eosinophils Absolute Auto 0.1 X10*3/uL (0.0-0.4); Eosinophils Percent Auto 2.3 % (0-4); Hematocrit 32.7 % (37.0-47.0); Hemoglobin 11.6 g/dl (12.0-16.0); Imm Gran Abs Auto 0.02 X10*3/uL (0.00-0.03); Imm Gran Pct Auto 0.3 % (0.0-0.4); Lymphocytes Absolute Auto 2.3 X10*3/uL (1.2-4.9); Lymphocytes Percent Auto 37.8 % (20-40); Mean Corpuscular HGB Conc 35.5 g/dl (31.0-35.0); Mean Corpuscular Hemoglobin 25.9 pg (27.0-33.0); Mean Platelet Volume 9.9 fL (9.4-12.3); Monocytes Absolute Auto 0.4 X10*3/uL (0.1-1.2); Monocytes Percent Auto 6.8 % (2-11); Neutrophils Absolute Auto 3.2 x10*3/uL (2.0-8.3); Neutrophils Percent Auto 51.7 % (45-73); Platelet Count 290 X10*3/uL (160-400); Red Blood Count 4.48 X10*6/uL (4.20-5.50); Red Cell Distribution Width 12.7 % (11.0-16.0); White Blood Count 6.2 X10*3/uL (4.8-10.8)
[2024-09-16 11:19] LABS: Creatinine Urine 54.26 mg/dL; Total Protein Urine Random < 7 mg/dL (<12)
[2024-09-16 11:27] LABS: Alanine Aminotransferase 20 U/L (0-31); Albumin Level 4.2 g/dL (3.5-5.0); Alkaline Phosphatase 71 U/L (39-117); Anion Gap 12 (12-20); Aspartate Amino Transferase 24 U/L (5-31); Bilirubin Total 0.2 mg/dL (0.0-1.0); Blood Urea Nitrogen 11 mg/dL (9-16); Calcium 9.6 mg/dL (8.4-10.2); Carbon Dioxide 25 mmol/L (22-29); Chloride 107 mmol/L (96-108); Estimated Glomerular Filt Rate > 60; Glucose Random 87 mg/dL (60-115); Potassium 3.6 mmol/L (3.3-5.1); Sodium 140 mmol/L (135-145); Total Protein 7.7 g/dL (6.5-8.0)
[2024-09-16 11:38] LABS: Erythrocyte Sedimentation Rate 7 MM/HR (0-20)
[2024-09-18 14:29] LABS: Complement C3 117 mg/dL (83-193)
[2024-09-18 20:09] LABS: Anti DNA DS Antibody 6 IU/mL
== END 2024-09-16 09:30 | disposition home or self-care (01) ==
LOC: HO.LAB 09:29
PROVIDERS: PCP Internal Medicine; Visit Provider Student in an Organized Health Care Education/Training Program
DX: M32.9 Systemic lupus erythematosus, unspecified (principal)
CPT/HCPCS: 36415; 80053; 81001; 82570; 84156; 85025; 85652; 86140; 86160; 86225

== ENCOUNTER 2024-09-22 09:57 | Outpatient (REF) | payer MEDICAID, SELFPAY | END 2024-09-22 09:58 | disposition home or self-care (01) | LOC: HO.HOSX 09:57 | PROVIDERS: PCP Internal Medicine; Visit Provider Orthopaedic Surgery | DX: M79.641 Pain in right hand (principal); M67.431 Ganglion, right wrist | CPT/HCPCS: 73130; 99202 ==

== ENCOUNTER 2024-09-22 09:57 | Outpatient (AMB) | payer MEDICAID, SELFPAY ==
--- NOTE | 2024-09-22 10:13 | A.OFFVIS_ITS ---
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 Patient complains of pain on the right CMC joint. Patient shares it has increased in size. Denies numbness and tingling. Denies finger locking. Denies any prior injuries or surgeries to the right hand. 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 She complains of a mass on her right hand. She says this has been present for ~4 and has changed in size. She denies any numbness, tingling, locking, or catching. She denies any known injuries. She follows with Dr. Pena for Lupus. 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[employer], 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 Review of Systems Const All systems reviewed & are unremarkable except as noted in HPI and below Physical Exam Vital Signs: BMI result Body Mass Index 21.3 Const General: cooperative, healthy appearing and no acute distress Orientation/consciousness: patient oriented x3 HEENT Head: Yes normocephalic and Yes atraumatic Eyes EOM: EOMs intact bilaterally Resp Effort & Inspection: normal respiratory effort and able to speak in complete sentences Cardio Jugular venous distension: no JVD Skin General skin exam: turgor normal Rashes: no rashes Neuro General: patient oriented x3 Extrem Other: Evaluation of Right Upper Extremity: The patient is alert, oriented, and in no acute distress Neuro: Median, Ulnar, Radial nerves motor and sensory intact and sensation is normal to the tips of all digits Vascular: Cap refill brisk ROM: She can make a fist and extend all her digits No locking or catching Skin: No lacerations or abrasions. General: No Ecchymosis. No Erythema or evidence of infection. There is a mass on the dorsal aspect of her 2nd CMC joint. This measures ~1.5cm in diameter, and is fluid-filled & mildly tender No erythema or overlying skin changes Radiographs: 3 views of the right hand were taken and viewed by me today in clinic. They show no fractures or dislocations. There is no significant prominence in the 2nd CMC joint to suggest a 2nd metacarpal boss Psych Appearance: grossly normal Affect: normal affect Attitude: cooperative Assessment & Plan Assessment & Plan (1) Ganglion cyst of dorsum of right wrist: Code(s): M67.431 - Ganglion, right wrist Category: Medical Plan Assessment & Plan: 1. Right dorsal wrist ganglion Measuring ~1.5cm in diameter, over the 2nd CMC joint I educated her about this condition I discussed operative and non-operative treatment options The patient would like to proceed with surgery The risks and benefits of operative treatment were discussed with the patient and the patient wishes to proceed with surgery. These risks include, but are not limited to risk of damage to blood vessels, nerves, tendons, infection, r ecurrence, incomplete relief of preoperative symptoms, persistent pain, possible need for further surgery and the risks associated with regional blocks and anesthesia. The plan is to take the patient to the operating room sometime in the next few weeks for the following procedures: 1. Right dorsal wrist excision of ganglion, under general All of the preoperative paperwork including the consent was reviewed today. All the patient's questions were answered. The patient understands that they will be contacted by our surgery specialist soon to schedule this procedure She denies Diabetes, blood thinners, heart, lung, kidney issues She has asthma, Lupus, & Bipolar disorder Please note that greater than 30 minutes was spent with this patient going over the history, evaluating the patient and radiographs, formulating possible treatment options, discussing them with the patient, and documenting the visit. Scribed for Rachel Hui MD by Dorian Butler, medical office receptionist assistant, on 09/22/24 at 10:50 AM, EST. Orders: Orders XR hand RT min 3V Today M79.641 - Pain in right hand Coding Level of Care Code New Pt Level 4 (59172) Diagnoses Ganglion cyst of dorsum of right wrist M67.431
[2024-09-22 10:15] VITALS: BMI 21.3
== END 2024-09-22 11:32 | disposition home or self-care (01) ==
LOC: HO.HOS 09:57
PROVIDERS: PCP Internal Medicine; Visit Provider Orthopaedic Surgery
DX: M67.431 Ganglion, right wrist (principal)
CPT/HCPCS: 99204

== ENCOUNTER 2025-01-25 11:29 | Outpatient (AMB) | payer MEDICAID, SELFPAY ==
--- NOTE | 2025-01-25 11:30 | A.OFFVIS_ITS ---
Vital Signs 01/25/25 11:31 Height 5 ft 1 in Weight 116 lb BMI 21.9 BP 122/64 Blood Pressure Location Rt brachial Position Sitting Pulse 67 Pulse Source Pulse Oximeter Pulse Oximetry (%) 100 Oxygen Delivery Method Room Air Intake Visit Reasons: Low Back Pain Allergies apple [Apple] Allergy (Severe, Verified 01/25/25 11:34) throat swelling tree nut [Tree Nut] Allergy (Severe, Verified 01/25/25 11:34) Swelling Medication List - Last Reconciled 01/25/25 by Rita García LPN albuterol sulfate 90 mcg/actuation 2 puffs inhalation Q6H PRN aripiprazole 5 mg PO QAM bupropion HCl XL 300 mg PO DAILY clonazepam 0.5 mg PO BEDTIME PRN hydroxychloroquine 200 mg PO DAILY ibuprofen 600 mg PO Q8H PRN loratadine 10 mg PO DAILY losartan 50 mg PO DAILY omeprazole 20 mg PO DAILY oxcarbazepine 600 mg PO BID propranolol 20 mg PO BID sertraline 150 mg PO DAILY zolpidem 10 mg PO BEDTIME PRN HPI HPI Low Back Pain: Details: History of Present Illness The patient is a 49-year-old female presenting with chronic low back pain. The pain has been present for an extended period and she had received temporary medial branch nerve stimulation in 2022, which provided moderate relief lasting about two to three months. She reports that the pain severity increased following a fall in October of last year. [id number] medication provides minimal and temporary relief. There is no past MRI noted, and her physical therapy participation had not occurred recently. The pain remains localized to her back, though her knee had been mildly affected. Pain Description - Onset and Timing: Chronic; exacerbated since a fall in October. - Quality and Character: Dull, constant. - Primary Location: Low back. - Areas of Radiation: None to legs, occasional knee discomfort. - Exacerbating Factors: None specifically mentioned. - Relieving Factors: Ibuprofen and Tylenol, but provide limited relief. - Functional Interference: Affects daily activities; occupational demands limited by pain. Physical Exam Results Pain Management - Affect: Pain impacts daily activities and quality of life. - Analgesia: Uses ibuprofen and Tylenol with limited effectiveness. - Adverse Effects: None reported. - Activities of Daily Living: Pain restricts occupational duties and daily activities. - Aberrant Drug Related Behaviors: None reported. 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[employer], 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 Physical Exam Vital Signs: Last Vital Signs Pulse 67 01/25/25 11:31 BP 122/64 01/25/25 11:31 Pulse Ox 100 01/25/25 11:31 Oxygen Delivery Method Room Air 01/25/25 11:31 BMI result Body Mass Index 21.9 Assessment & Plan Assessment & Plan (1) Chronic intractable pain: Code(s): G89.29 - Other chronic pain Category: Medical (2) Lumbar spondylosis: Code(s): M47.816 - Spondylosis without myelopathy or radiculopathy, lumbar region Category: Medical (3) Chronic neck pain: Code(s): M54.2 - Cervicalgia; G89.29 - Other chronic pain Category: Medical Plan Plan The patient will undergo a six-week physical therapy regimen focusing on both back and neck issues to enhance rehabilitation efforts. After completing physical therapy, she will have a video visit to assess progress and, if necessary, an MRI will be obtained to conduct a more thorough evaluation. Contact information for the physical therapy department has been provided for im mediate scheduling. Patient was informed and verbally consented to the use of an ambient scribe for clinic note documentation during this visit. Discussion Notes I discussed with the patient the potential underlying causes of her persistent low back pain and the benefits of conducting physical therapy as an initial step in her management. By completing six weeks of PT, we can satisfy insurance r equirements for an MRI if needed. We discussed the potential benefits and goals of PT, as well as the importance of following through with home exercises. The patient understands her condition, the proposed plan, and the rationale for delaying advanced imaging at this stage. I reiterated the follow-up plan, including conducting a video visit at the end of the therapy period to reassess. Patient Instructions - Start a six-week course of physical therapy, focusing on back and neck. - Follow up with a video visit after completing physical therapy. - Continue using [id number] pain medications as needed for temporary relief. - Contact physical therapy using the provided phone number to schedule sessions. - Engage in home exercises as advised during therapy sessions. - Monitor pain progression and report any significant changes during follow-up. Orders: Orders PT Evaluation and Treatment 01/25/25 G89.29 - Other chronic pain, M47.816 - Spondylosis without myelopathy or radiculopathy, lumbar region, M54.2 - Cervicalgia Coding Level of Care Code Est Pt Level 4 (92643) Diagnoses Chronic intractable pain G89.29 Lumbar spondylosis M47.816 Chronic neck pain M54.2; G89.29
[2025-01-25 11:31] VITALS: BP 122/64; PULSE 67; O2SAT 100; BMI 21.9
== END 2025-01-25 11:50 | disposition home or self-care (01) ==
PROVIDERS: PCP Internal Medicine; Visit Provider Internal Medicine
DX: G89.29 Other chronic pain (principal); M47.816 Spondylosis without myelopathy or radiculopathy, lumbar region; M54.2 Cervicalgia
CPT/HCPCS: 99214

== ENCOUNTER → 2025-01-25 11:29 | Outpatient (BNVA) | payer MEDICAID, SELFPAY | PROVIDERS: PCP Internal Medicine; Visit Provider Internal Medicine | DX: M47.816 Spondylosis without myelopathy or radiculopathy, lumbar region (principal); M54.2 Cervicalgia; G89.29 Other chronic pain | CPT/HCPCS: 99212 ==

== ENCOUNTER 2025-03-03 08:00 | Outpatient (RCR) | payer MEDICAID, SELFPAY ==
--- NOTE | 2025-03-01 08:39 | MHC.PT.EP ---
[facility] [place] Office [place] Office [place] Office [address] Anant Burris [address] [phone] F: [phone] F: [phone] F: [phone] F: [phone] Physical Therapy Plan of Care Date of Evaluation: 03/01/25 Date of Surgery: n/a Diagnosis: lumbar spondylosis Assessment: Patient is a 49 year old female presenting to PT with complaints of pain in her low back. Pt reports onset of pain began about 4 years ago due to insidious onset. She presents today with impairments in pain, lumbar ROM, core strength, hip strength, posture. 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 Pt expresses skilled nursing goal of reducing pain, and is motivated to work towards this in PT. Clinical presentation today is most consistent with signs and sx associated with low back pain and pt will benefit from skilled PT 2 week x 4 weeks to address the following problems and impairments noted upon evaluation: pain, lumbar ROM, core strength, hip strength, posture. These problems limit the patient with the following functional activities: bending, lifting, ADLs. The prescribed treatment plan of care is medically necessary. Co-morbidities of bipolar disorder, depression, raynauds, lupus were identified and taken into considerations of plan of care. Pt was educated on HEP, role of PT, prognosis, POC. Frequency and Duration: The patient will be seen 2 x week x 4 weeks Short Term Goals: Pt will demonstrate pain at rest < 4/10 in 2 weeks. Pt will demonstrate centralization of sx in 2 weeks. Pt will demonstrate improved hip MMT strength by 1/3 grade in 2 weeks. Machine Edge Bander Goals: Pt will demonstrate improved Leslee score by 10% in 4 weeks for improved functional mobility. Pt will demonstrate ability to bend and lift with min to no pain in 4 weeks for return to PLOF. Treatment Plan: Modalities to reduce pain, spasms and effusion. Manual therapy to restore motion and function. Therapeutic exercise to improve strength and flexibility. Neuromuscular re-education for posture and balance. Therapeutic activities to return to functional activities of daily living. Electronically signed by: Radha Leon, PT, DPT, ATC Please sign and return to therapist. Thank you for your referral.
--- NOTE | 2025-04-05 07:00 | MHC.PT.DC ---
[facility] [place] Office [place] Office [place] Office [address] Burris [address] [phone] F: [phone] F: [phone] F: [phone] F: [phone] Physical Therapy Discharge Report Diagnosis: lumbar spondylosis Date of Surgery: n/a Date of Evaluation: 03/01/25 Date of Discharge: 04/05/25 Treatments to Date: 2 Cancellations to Date: 6 No Shows to Date: 0 Discharge Status: Discharge Summary: Pt has not attended skilled PT in >30 days therefore to be d/c per policy. Electronically signed by: Radha Leon, PT, DPT, ATC Please sign and return to therapist. Thank you for your referral.
== END 2025-04-05 07:01 | disposition home or self-care (01) ==
LOC: HO.PTCHIC 08:00
PROVIDERS: PCP Internal Medicine; Visit Provider Internal Medicine
DX: M47.816 Spondylosis without myelopathy or radiculopathy, lumbar region (principal); M54.2 Cervicalgia; G89.29 Other chronic pain
CPT/HCPCS: 97110; 97162

== ENCOUNTER 2025-03-22 09:40 | Outpatient (AMB) | payer MEDICAID, SELFPAY ==
--- NOTE | 2025-03-22 09:45 | MHC.OFFVIS ---
Intake Visit Reasons: 2 months FU Allergies apple [Apple] Allergy (Severe, Verified 01/25/25 11:34) throat swelling tree nut [Tree Nut] Allergy (Severe, Verified 01/25/25 11:34) Swelling HPI HPI 2 months FU: Details: History of Present Illness The patient is a 49-year-old female presenting with lower back pain. She reports that the pain has persisted for an unspecified period and describes varying severity. The pain is localized to the low back and extends towards the front, reaching her knees but not radiating further down the legs. She struggles with pain management impacting her ability to perform physical therapy exercises. The pain intensity fluctuates, and she occasionally has severe episodes affecting her routine activities. The patient has engaged in home-based exercises following the initial physical therapy consultation and has shown interest in knowing how effective these exercises might be before opting for further diagnostic evaluations like an MRI. Her goal is to manage the lower back pain through consistent stretching and strengthening exercises over a set period, as highlighted in this consultation. Pain Description - Onset: Unspecified duration prior to visit - Quality and Character: Pain varies from mild to severe intensity - Primary Location: Lower back - Radiation: Extends towards the front, specifically to the knees - Exacerbating Factors: Movement, physical activity, and performing certain exercises - Relieving Factors: Engaging in stretching exercises at home - Interference: Difficulty in maintaining physical therapy routines and challenges with daily physical activities Physical Exam - Appears afebrile. - Alert and oriented. - Mood and affect appropriate. - Follows and participates in conversation appropriately. - Respiratory effort is unlabored. - Able to transition from sit to stand unassisted. - Ambulates with bilaterally normal heel strike and toe off. - Able to stand and walk on toes and heels. Results Pain Management - Affect: The back pain impacts the patient's ability to engage in physical activities. - Analgesia: No specific pain medications were discussed; patient focuses on physical therapy and exercises. - Adverse Effects: None reported from pain management strategies discussed. - Activities of Daily Living: Pain affects physical activities, making regular exercises difficult. - Aberrant Drug Related Behaviors: No signs noted or reported. 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[employer], 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 Telehealth Telehealth Telehealth Platform: [employer] Location of provider rendering services: practice address Location of patient: address on file Patient Identification confirmed using: Name, : Yes Telehealth method: video Patient verbally consented to treatment: Yes Patient informed of any privacy concerns related to visit: Yes Assessment & Plan Assessment & Plan (1) Lumbar spondylosis: Code(s): M47.816 - Spondylosis without myelopathy or radiculopathy, lumbar region Category: Medical (2) Chronic intractable pain: Code(s): G89.29 - Other chronic pain Category: Medical Plan Plan - Continue daily home-based exercise plan focusing on stretching and core strengthening. - Reassess effectiveness of exercises in two months; consider MRI if no improvement. - Follow-up appointment scheduled for two months to review progress and adaptations needed based on pain levels and functionality. Patient was informed and verbally consented to the use of an ambient scribe for clinic note documentation during this visit. Discussion Notes During the visit, I discussed with the patient her current lower back pain management strategy, emphasizing the importance of consistent home exercise routines for an accurate assessment of progress. I explained how continued exercise over the next two months may provide better insights into the effectiveness of this conservative management compared to immediate further diagnostics. The patient has been provided guidelines to follow home-based exercises, with a follow-up scheduled to assess her condition's evolution and make informed decisions regarding advanced diagnostics like MRI, should her condition not improve. The potential need for a more intensive diagnostic approach, including imaging, should the pain persist or worsen, was also discussed. Patient Instructions - Perform stretching and strengthening exercises for at least 30 minutes daily. - Look up additional exercises online specifically for lower back pain relief. - Adhere to a consistent routine to fully assess progress over the next two months. - Anticipate a follow-up televisit in two months to re-evaluate your condition. - Report any significant changes in pain or functionality sooner if needed. Coding Level of Care Code Est Pt Level 3 (62139) Diagnoses Lumbar spondylosis M47.816 Chronic intractable pain G89.29
== END 2025-03-22 09:45 | disposition home or self-care (01) ==
LOC: HO.PMC 09:40
PROVIDERS: PCP Internal Medicine; Visit Provider Internal Medicine
DX: M47.816 Spondylosis without myelopathy or radiculopathy, lumbar region (principal); G89.29 Other chronic pain
CPT/HCPCS: 99213

== ENCOUNTER → 2025-03-22 09:40 | Outpatient (BNVA) | payer MEDICAID, SELFPAY | PROVIDERS: PCP Internal Medicine; Visit Provider Internal Medicine | DX: M47.816 Spondylosis without myelopathy or radiculopathy, lumbar region (principal); G89.29 Other chronic pain | CPT/HCPCS: 99212 ==

== ENCOUNTER 2025-05-21 09:35 | Outpatient (AMB) | payer MEDICAID, SELFPAY ==
--- NOTE | 2025-05-21 09:36 | A.OFFVIS_ITS ---
Intake Visit Reasons: s/p PT Allergies apple (Apple) Allergy (Severe, Verified 01/25/25 11:34) throat swelling tree nut (Tree Nut) Allergy (Severe, Verified 01/25/25 11:34) Swelling HPI HPI s/p PT: Details: History of Present Illness The patient is a 49-year-old female presenting with post-surgical pain and difficulties with physical therapy and home exercises. The patient reports ongoing pain following a surgical procedure, which has not been alleviated by physical therapy sessions attended in February. She has opted to perform exercises at home, citing discomfort with formal physical therapy sessions. Despite engaging in home exercises sporadically over the past couple of months, the patient continues to experience pain, particularly in her legs, which she describes as exacerbated by the exercises. She acknowledges that the exercises are beneficial but has not maintained a consistent routine, performing them only a few times. Pain Description - Onset: Post-surgical - Quality: Persistent pain, exacerbated by physical activity - Location: Legs - Exacerbating factors: Physical therapy, home exercises - Relieving factors: None identified Pain Management - Affect: Pain impacts daily activities and exercise adherence - Analgesia: No specific pain medications discussed - Adverse Effects: Pain exacerbated by exercises - Activities of Daily Living: Pain interferes with exercise routine - Aberrant Drug Related Behaviors: None reported [facility] Medical History (Updated 01/25/25 @ 11:49 by Liam Price MD) History of COVID-19 Bipolar disorder Depression Arthritis Raynauds syndrome Asthma Lupus Surgical History History of H/O colonoscopy Hx of cholecystectomy History of hysterectomy Social History (Updated 09/22/24 @ 10:21 by CLYDE Ambrocio) Alcohol intake: never Patient Tobacco Use Status: Former Tobacco user Tobacco use type: Cigarette Cigarettes Per Day: 7 Years Smoked: 15 e-Cigarette/Vaping Use: Never Used Current occupational status: employed 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[employer], 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 Telehealth Telehealth Telehealth Platform: [employer] Location of provider rendering services: practice address Location of patient: address on file Patient Identification confirmed using: Name, : Yes Telehealth method: video Patient verbally consented to treatment: Yes Patient verbally consented to billing insurance company: Yes Patient informed of any privacy concerns related to visit: Yes Minutes spent on Phone/Video with Pt.: 5 Assessment & Plan Assessment & Plan (1) Lumbar spondylosis: Code(s): M47.816 - Spondylosis without myelopathy or radiculopathy, lumbar region Category: Medical (2) Chronic intractable pain: Code(s): G89.29 - Other chronic pain Category: Medical Plan Plan - Recommend daily home exercises for 15-20 minutes over the next two months to assess improvement. - If pain persists after consistent exercise routine, consider ordering an MRI. - Schedule follow-up appointment in two months to evaluate progress. - Advise patient to contact the office if exercises significantly worsen pain. Patient was informed and verbally consented to the use of an ambient scribe for clinic note documentation during this visit. Discussion Notes I discussed with the patient the importance of performing home exercises daily for 15-20 minutes over the next two months to potentially alleviate her pain. I explained that if the pain persists after this period, we would consider ordering an MRI to further investigate the issue. I advised her to schedule a follow-up appointment in two months and to contact the office if her pain significantly worsens with the exercises. Patient Instructions - Perform home exercises daily for 15-20 minutes. - Schedule a follow-up appointment in two months. - Contact the office if exercises significantly worsen your pain. Coding Level of Care Code Tele Est Pt Level 3 (43615) Diagnoses Lumbar spondylosis M47.816 Chronic intractable pain G89.29
--- OUTSIDE RECORDS SUMMARY | 2025-05-21 10:02 | XMS_ITS | Patient Health Record ---
Author Organization [facility] Address [address] [place] [address] Care Team Providers Care General Surgeon Name Role Phone Waleska Moralez Primary Care Provider Unavailab Roland Cevallos Jr Unavailable [phone] Reason For Referral Referring Provider First Name Waleska Referring Provider Last Name Nawaf Referring Provider Speciality Internal M edicine Referred Organization [facility] Referred Provider Roland Graff Jr Referred Address [address],[place], [place],[address], Referred Provider Specialty Gastroentero logy General Notes Neha Warren 2024 10:49:15 AM >REQUESTED A [place] REFERRAL FROM DR MORALEZ'S OFFICE FOR VISIT WITH DR GRAFF ON 06-07-25 Referral Priority Routine Medications Medication SIG (Take, Route, Frequency, Duration) Notes Start Date End Date Status clonazePAM 0.5 MG TAKE 1 TABLET BY LAURA TH TWICE A DAY NEEDED Oral for 30 Active MiraLax (colon prep) 8.3 oun ce ((238) grams mixed with Gatorade or Crystal Light orally begin at 5:00 p.m. the day before the procedure for 1 day 05/11/2020 Active ARIPiprazole 2 MG TAKE 1 TABLET BY LAURA TH EVERY DAY IN THE MORNING DIRECTED Oral for 30 Active Zolpidem Tartrate 10 MG TAKE 1 TABLET BY MOUTH EVERY DAY AT BEDTIME NEEDED Oral for 30 Active Naproxen 500 MG TAKE 1 TABLET BY LAURA TH TWICE A DAY NEEDED FOR HEADACHE Oral for 30 Active Tylenol Arthritis Pain Active Hydroxychloroquine Sulfate 2 00 MG TAKE 1 TABLET BY MOUTH TWICE A DAY Oral for 30 Active Omeprazole 20 MG TAKE ONE CAPSULE BY MOUTH DAILY Oral for 30 Active OXcarbazepine 300 MG TAKE 1 TABLET IN TH E MORNING AND 2 TABLETS AT BEDTIME. Oral for 30 Active Immunizations Vaccine Route Administration Date Status Comme nts Influenza Unknown 07/26/2019 Administered Social History Tobacco Use: Social History Observation Description Date Details (start date - stop date) Former Smoker NA - NA Tobacco Use/Smoking Question Answer Notes Patient is a former smoker How long has it been since you last smoked? 1-5 years Problems Problem Type SNOMED Code ICD Code Onset Dates Problem Status W/U Status Risk Notes Problem 958052507 Colon cancer screening (Z12.11) Active confirmed Problem 037135221 Family history o f colon cancer (Z80.0) Active confirmed Problem 60278479 Irritable bowel syndrome with both constipation and diarrhea (K58.2) Active confirmed Plan Of Treatment Future Test Test Name Order Date COLONOSCOPY 01/06/2015 COLONOSCOPY 05/11/2020 Next Appt Details Provider Name:Roland poe , 06/07/2025 09:20:00 AM, [address] [facility], [address], [place], [address], Insurance Providers Payer Name Payer Address Payer Phone Subscriber Number Group Number Insured Name Patient Relationship to Insured Coverage Start Date Coverage End Date MEDICAID OF [employer] [address] [place] [phone] [id number] DELANEY BAUER Self - patient is the insured Medical (General) History Medical History History ICD Code Sjogren syndrome with lupus depression/anxiety esophageal reflux insomnia Denies MD,DM,CVA,Lung disease,renal dise ase Surgical History Surgery Date(Month/Year) hysterectomy cholecystectomy
== END 2025-05-21 09:36 | disposition home or self-care (01) ==
LOC: HO.PMC 09:35
PROVIDERS: PCP Internal Medicine; Visit Provider Internal Medicine
DX: M47.816 Spondylosis without myelopathy or radiculopathy, lumbar region (principal); G89.29 Other chronic pain
CPT/HCPCS: 99213

== ENCOUNTER 2025-06-24 08:22 | Outpatient (AMB) | payer MEDICAID, SELFPAY ==
--- OUTSIDE RECORDS SUMMARY | 2025-06-24 08:30 | XMS_ITS | Patient Health Record ---
Author Organization [facility] Address [address] [place] [address] Care Team Providers Care Job Cost Estimator Name Role Phone Waleska Moralez Primary Care Provider Unavailab Roland Cevallos Jr Unavailable Reason For Referral Referring Provider First Name Waleska Referring Provider Last Name Nawaf Referring Provider Speciality Internal M edicine Referred Organization [facility] Referred Provider Roland Graff Jr Referred Address [address] [facility] [address], [address],[place], [place],[address], Referred Provider Specialty Gastroentero logy General Notes [...] Problem Status W/U Status Risk Notes Problem 533046152 Colon cancer screening (Z12.11) Active confirmed Problem 839158789 Family history o f colon cancer (Z80.0) Active confirmed Problem 69902851 Irritable bowel syndrome with both constipation and diarrhea (K58.2) Active confirmed Plan Of Treatment Future Test Test Name Order Date COLONOSCOPY 01/06/2015 COLONOSCOPY 05/11/2020 Next Appt Details Provider Name:Roland poe , 09/27/2025 10:20:00 AM, [address] [place] [address], [address], [place], [address], Insurance Providers Payer Name Payer Address Payer Phone Subscriber Number Group Number Insured Name Patient Relationship to Insured Coverage Start Date Coverage End Date MEDICAID OF [employer] [address] [place] [phone] [id number] DELANEY BAUER Self - patient is the insured Medical (General) History Medical History History ICD Code Sjogren syndrome with lupus depression/anxiety esophageal reflux insomnia Denies [place],DM,CVA,Lung disease,renal dise ase Surgical History Surgery Date(Month/Year) hysterectomy cholecystectomy
--- NOTE | 2025-06-24 08:31 | MHC.OFFVIS ---
Intake Visit Reasons: 6 weeks follow up Allergies apple (Apple) Allergy (Severe, Verified 01/25/25 11:34) throat swelling tree nut (Tree Nut) Allergy (Severe, Verified 01/25/25 11:34) Swelling Medication List - Last Reconciled 06/24/25 by Eris Aiken MD albuterol sulfate 90 mcg/actuation 2 puffs inhalation Q6H PRN aripiprazole 5 mg PO QAM bupropion HCl XL 300 mg PO DAILY clonazepam 0.5 mg PO BEDTIME PRN hydroxychloroquine 200 mg PO DAILY ibuprofen 600 mg PO Q8H PRN loratadine 10 mg PO DAILY losartan 50 mg PO DAILY omeprazole 20 mg PO DAILY oxcarbazepine 600 mg PO BID sertraline 150 mg PO DAILY zolpidem 10 mg PO BEDTIME PRN HPI Comments Details: 49 years old right-handed woman with diagnosis of lupus, fibromyalgia, bipolar disorder, and anxiety disorder is here for management of headaches. Headaches were suggestive of migraine. Topiramate did not help and it affected her stomach. Previously she had tried propranolol and amitriptyline. Headache frequency is 3-4 times a week. 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 HEENT:?No vision changes, hearing loss, nasal congestion, sore throat. Neurological:?No dizziness, syncope, seizures, numbness, tingling, weakness, tremors, memory loss. Psychiatric:?No anxiety, depression, mood swings, sleep disturbance, or hallucinations. Endocrine:?No heat/cold intolerance, polydipsia, polyuria, or hair/skin changes. Hematologic/Lymphatic:?No easy bruising, bleeding, or lymphadenopathy. Integumentary (Skin):?No rash, lesions, itching, or color changes. ? Physical Exam Neuro Other: Mental Status: Alert and oriented to person, place, and time. Normal attention. Normal spontaneous speech, fluency, and comprehension. No obvious issues with mood and memory. Affect is appropriate. Cranial Nerves: CN II: Visual marie full to confrontation, visual acuity intact. CN III, IV, : Pupils equal, round, reactive to light and accommodation. Extraocular movements are normal. CN V: Facial sensation is normal. CN VII: Facial movements symmetrical. CN VIII: Hearing intact to bedside conversation is normal. CN IX, X: Palate elevates symmetrically. CN XI: Shoulder shrug and head turn symmetrical. CN XII: Tongue midline without atrophy or fasciculations. Extrapyramidal: Full facial expressions and blinking. No rigidity. Movements are appropriate with no tremor or abnormality. Speech: Normal; no dysarthria or tremor. Assessment & Plan Assessment & Plan (1) Migraine with aura, not intractable, without status migrainosus: Comment: Meds tried for migraine: Propranolol, amitriptyline, topiramate CT brain WO at [facility] in April 2022: WNL CT C spine at [facility] in April 2022: DJD Code(s): G43.109 - Migraine with aura, not intractable, without status migrainosus Category: Medical Plan Impression: 49 years old woman with SLE, and anxiety is treated for migraine without aura. She did not respond well to propranolol, amitriptyline, or topiramate. Recommendation: Stopping topiramate and trying valproic acid 250 mg 1 at night. If this approach does not work, I would consider prior authorization for CGRP inhibitors. Medications: New divalproex 250 mg PO ONCE 30 tabs 1RF Coding Level of Care Code Est Pt Level 4 (24335) Diagnoses Migraine with aura, not intractable, without status migrainosus G43.109
== END 2025-06-24 08:41 | disposition home or self-care (01) ==
LOC: HO.HSM 08:22
PROVIDERS: PCP Internal Medicine; Visit Provider Psychiatry & Neurology Neurology
DX: G43.109 Migraine with aura, not intractable, without status migrainosus (principal)
CPT/HCPCS: 99214

== ENCOUNTER → 2025-06-24 08:22 | Outpatient (BNVA) | payer MEDICAID, SELFPAY | PROVIDERS: PCP Internal Medicine; Visit Provider Psychiatry & Neurology Neurology | DX: G43.109 Migraine with aura, not intractable, without status migrainosus (principal); M32.9 Systemic lupus erythematosus, unspecified | CPT/HCPCS: 99212 ==

== ENCOUNTER 2025-11-08 13:24 | Outpatient (AMB) | payer MEDICAID, SELFPAY ==
--- OUTSIDE RECORDS SUMMARY | 2025-06-07 04:20 | XMS_ITS ---
Author Organization [facility] Address [address] [place] [address] Care Team Providers Care Pin Pusher Name Role Phone Waleska Mccracken Primary Care Provider Unavailab Roland Cevallos Jr REASON FOR VISIT Patient presents today for a screening colonoscopy Encounters Encounter Location Date Provider Diagnosis [facility] [address] [facility] [address] [place] [phone] 06/07/2025 Roland Foley Jr Plan Of Treatment Next Appt Details Provider Name:Roland poe Jr, 01/24/2026 10:40:00 AM, [address], [address], [place], [address], Progress Notes * ELVIA BAUERCRISTINEDOB:1975 (49 yo F)Acc No.[id number]:06/07/2025 Progress Notes Patient: DELANEY DRUMMOND Provider: Tameka Foley MD :1975 A ge:49 Y S ex:Female Date:06/07/2025 Address:[address] [place] [address], [id number] Pcp:Waleska Mccracken Subjective: * Chief Complaints: * P atient presents today for a screening colonoscopy Billing Information: * Procedure Codes: * The named appointment provid er may or may not be the originator of this progress note, and it is not deemed complete until electronically signed by the appointment provider. Sign off status: Pending * Provider: Tameka Foley MD Date: 0 06/07/2025 Generated for Dannie thornton/Joby/Dennis on: 1 01/09/2025 07:24 PM EST
--- OUTSIDE RECORDS SUMMARY | 2025-09-27 05:20 | XMS_ITS ---
Author Organization [facility] Address [address] [place] [id number] Care Team Providers Care Client Support Analyst Name Role Phone Waleska Mccracken Primary Care Provider Roland Bravo Jr [phone] REASON FOR VISIT Patient presents today colon screening Medications Medication SIG (Take, Route, Frequency, Duration) Notes Start Date End Date Status Hydroxychloroquine Sulfate 2 00 MG Tablet TAKE 1 TABLET BY MOUTH TWICE A DAY Oral; Duration: 30 Active MiraLax (colon prep) 8.3 oun ce ((238) grams mixed with Gatorade or Crystal Light orally begin at 5:00 p.m. the day before the procedure; Duration: 1 day 05/11/2020 Active Omeprazole 20 MG Capsule Delayed Release TAKE ONE CAPSULE BY MOUTH DAILY Oral; Duration: 30 Active clonazePAM 0.5 MG Tablet TAKE 1 TABLET B Y MOUTH TWICE A DAY NEEDED Oral; Duration: 30 Active OXcarbazepine 300 MG Tablet TAKE 1 TABLE T IN THE MORNING AND 2 TABLETS AT BEDTIME. Oral; Duration: 30 Active Tylenol Arthritis Pain Active Naproxen 500 MG Tablet TAKE 1 TABLET BY MOUTH TWICE A DAY NEEDED FOR HEADACHE Oral; Duration: 30 Active Zolpidem Tartrate 10 MG Tablet TAKE 1 TA BLET BY MOUTH EVERY DAY AT BEDTIME NEEDED Oral; Duration: 30 Active ARIPiprazole 2 MG Tablet TAKE 1 TABLET B Y MOUTH EVERY DAY IN THE MORNING DIRECTED Oral; Duration: 30 Active Encounters Encounter Location Date Provider Diagnosis [facility] [address] [place] [address] 09/27/2025 Roland Foley Jr Plan Of Treatment Next Appt Details Provider Name:Roland poe Jr, 01/24/2026 10:40:00 AM, [address] [facility], [address], [place], [address], Progress Notes * DELANEY BAUERDOB:1975 (49 yo F)Acc No.[id number]:09/27/2025 Progress Notes Patient: DELANEY DRUMMOND Provider: Tameka Foley MD :1975 A ge:49 Y S ex:Female Date:09/27/2025 Address:[address] [place], [place] [id number] Pcp:Waleska Mccracken Subjective: * Chief Complaints: * P atient presents today colon screening * Medications: T akingHydroxychloroquine Sulfate 200 MG Tablet TAKE 1 TABLET BY MOUTH TWICE A DAY Oral OXcarbazepine 300 MG Tablet TAKE 1 TABLET IN THE MORNING AND 2 TABLETS AT BEDTIME. Oral Omeprazole 20 MG Capsule Delayed Release TAKE ONE CAPSULE BY MOUTH DAILY Oral clonazePAM 0.5 MG Tablet TAKE 1 TABLET BY MOUTH TWICE A DAY NEEDED Oral Zolpidem Tartrate 10 MG Tablet TAKE 1 TABLET BY MOUTH EVERY DAY AT BEDTIME NEEDED Oral ARIPiprazole 2 MG Tablet TAKE 1 TABLET BY MOUTH EVERY DAY IN THE MORNING DIRECTED Oral Tylenol Arthritis Pain Naproxen 500 MG Tablet TAKE 1 TABLET BY MOUTH TWICE A DAY NEEDED FOR HEADACHE Oral MiraLax (colon prep) 8.3 ounce (238) grams mixed with Gatorade or Crystal Light orally begin at 5:00 p.m. the day before the procedure Taking Hydroxychloroquine Sulfate 200 MG Tablet TAKE 1 TABLET BY MOUTH TWICE A DAY Oral Taking OXcarbazepine 300 MG Tablet TAKE 1 TABLET IN THE MORNING AND 2 TABLETS AT BEDTIME. Oral Taking Omeprazole 20 MG Capsule Delayed Release TAKE ONE CAPSULE BY MOUTH DAILY Oral Taking clonazePAM 0.5 MG Tablet TAKE 1 TABLET BY MOUTH TWICE A DAY NEEDED Oral Taking Zolpidem Tartrate 10 MG Tablet TAKE 1 TABLET BY MOUTH EVERY DAY AT BEDTIME NEEDED Oral Taking ARIPiprazole 2 MG Tablet TAKE 1 TABLET BY MOUTH EVERY DAY IN THE MORNING DIRECTED Oral Taking Tylenol Arthritis Pain Taking Naproxen 500 MG Tablet TAKE 1 TABLET BY MOUTH TWICE A DAY NEEDED FOR HEADACHE Oral Taking MiraLax (colon prep) 8.3 ounce ((238) grams mixed with Gatorade or Crystal Light orally begin at 5:00 p.m. the day before the procedure Billing Information: * Procedure Codes: * The named appointment provid er may or may not be the originator of this progress note, and it is not deemed complete until electronically signed by the appointment provider. Sign off status: Pending * Provider: Tameka Foley MD Date: 11/27/2024 Generated for Dannie thornton/Joby/Patiitting on: 01/09/2025 07:25 PM EST
--- NOTE | 2025-11-08 13:29 | MHC.OFFVIS ---
Vital Signs 11/08/25 13:33 Height 5 ft 1 in Weight 117 lb 8.102 oz BMI 22.2 BP 118/66 Blood Pressure Location Rt brachial Position Sitting Pulse 66 Pulse Source Pulse Oximeter Pulse Oximetry (%) 98 Oxygen Delivery Method Room Air Intake Visit Reasons: SLE Intake Note: Patient presents for follow up on lupus. She was last seen by Dr. Pena on 03/19/2024.Patient would like refill on hydroxychloroquine. Supervisor Dry Cleaning Required: No Supervisor Dry Cleaning Services: Supervisor Dry Cleaning Present Accompanied by: Self / Same As Patient Allergies apple (Apple) Allergy (Severe, Verified 11/08/25 13:38) throat swelling tree nut (Tree Nut) Allergy (Severe, Verified 11/08/25 13:38) Swelling HPI Comments Details: 49-year-old female with a history of SLE, depression and hypertension coming to me as a new patient for management of her disease. She was diagnosed in 2012, based on positive MARIEL, positive SSA and positive dsDNA antibodies. Her symptoms at that time were Raynaud's phenomena and joint pain, her joint pain was widespread in the knees bilaterally and in the elbows. She also has lumbar spondylosis and follows PMnR for pain control She is a known patient at this practice. She last saw Dr Pena in February 2024. At that time she was doing relatively well. She was on hydroxychloroquine 200 mg b.i.d. Today, she remains on hydroxychloroquine 200 mg once a day. In terms of her symptoms she feels well today, she does not have any new skin rash she does not have any oral ulcers any pleuritic chest pain no blood clot. She does have joint pain in her knees bilaterally, and in her lower back which are likely attributed to wear and tear/degenerative osteoarthritis. May 2025, in Her last eye exam was this year April 2025 Dr Ornelas,her eye was unremarkable. ROS: She denies oral ulcers, miscarriages, blood clots, pleuritic chest pain, blood in her urine, no skin rash endorses photosensitivty, rayanuds phenomena and joint pain along with hair fall but no scarring alopecia FH: No family history PHYSICAL EXAM General: Comfortable CVS: RRR Respiratory: clear to auscultation bilaterally. Good respiratory effort Skin: No lesions seen MSK: Patient is able to make a fist bilaterally. Patient has nontender MCPs PIPs and wrists. Patient has no active synovitis in any of her fingers. She has full range of motion in the shoulders. Strength is 5/5. Patient has full range of motion in the hips. Patient has some crepitus noted on flexion and extension of the knees bilaterally. She has no synovitis in the feet. MTP squeeze test negative. 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 [employer], 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 Physical Exam Vital Signs: Last Vital Signs Pulse 66 11/08/25 13:33 BP 118/66 11/08/25 13:33 Pulse Ox 98 11/08/25 13:33 Oxygen Delivery Method Room Air 11/08/25 13:33 BMI result Body Mass Index 22.2 Assessment & Plan Assessment & Plan (1) Lupus: Comment: dx 2013: pos MARIEL, SS-A, ds DNA arthralgias, Raynaud's Plaquenil since 2012 -last eye exam 04/2025 Code(s): M32.9 - Systemic lupus erythematosus, unspecified Category: Medical (2) Knee osteoarthritis: Code(s): M17.9 - Osteoarthritis of knee, unspecified Category: Medical Qualifiers: Osteoarthritis type: primary Laterality: bilateral Qualified Code(s): M17.0 - Bilateral primary osteoarthritis of knee (3) Long-term use of hydroxychloroquine: Code(s): Z79.899 - Other terminal superintendent (current) drug therapy Category: Medical Plan [age] year old female with a history of SLE presenting to me as a new patient for evaluation of SLE. She is currently on hydroxychloroquine 200 mg once a day. She last saw her eye doctor Dr. Ornelas in April 2025. Exam was unremarkable. She has no new symptoms and she feels well. No recent flares of SLE. She endorses photosensitivity, Raynaud's and has joint pain mainly in bilateral knees and lower back. Today I will do x-rays of her bilateral knees to check for the degree of arthritis. In the interim we discussed Voltaren gel to apply on the knees as needed and depending on the results of the x-rays of the knees we will decide various intervention like cortisone injection in the knee versus other surgical options. I will recheck lupus markers and blood work for monitoring hydroxychloroquine including CBC, CMP, dsDNA, C3, C4, urine studies UPCR, ESR CRP Follow-up in 6 months Orders: Orders Complete Blood Count Auto Diff Today M32.9 - Systemic lupus erythematosus, unspecified C Reactive Protein Today M32.9 - Systemic lupus erythematosus, unspecified Complement C4 Today M32.9 - Systemic lupus erythematosus, unspecified Anti DNA DS Antibody Today M32.9 - Systemic lupus erythematosus, unspecified UA ClnCatch+Micro w/rflx Cult Today M32.9 - Systemic lupus erythematosus, unspecified Protein Creatinine Ratio, Ur Today M32.9 - Systemic lupus erythematosus, unspecified MARIEL Reflex Titer and Pattern Today M32.9 - Systemic lupus erythematosus, unspecified Sm Sm/CORRUGATOR Antibodies Today M32.9 - Systemic lupus erythematosus, unspecified Comprehensive Met. Panel Today M32.9 - Systemic lupus erythematosus, unspecified Erythrocyte Sedimentation Rate Today M32.9 - Systemic lupus erythematosus, unspecified Complement C3 Today M32.9 - Systemic lupus erythematosus, unspecified DNA Double Stranded-Crithidia Today M32.9 - Systemic lupus erythematosus, unspecified XR Knee Gregg 1or 2V Today M17.9 - Osteoarthritis of knee, unspecified, M32.9 - Systemic lupus erythematosus, unspecified Medications: New hydroxychloroquine (Plaquenil) 200 mg PO DAILY 90 tabs 1RF diclofenac sodium 1% (Voltaren Arthritis Pain) apply to single elbow, wrist or hand; for hand includes palm/fingers/back of hand 2 grams topical QID 100 grams 2RF Coding Level of Care Code New Pt Level 4 (15366) Diagnoses Lupus M32.9 Primary osteoarthritis of both knees M17.0 Osteoarthritis type: primary Laterality: bilateral Long-term use of hydroxychloroquine Z79.899
[2025-11-08 13:33] VITALS: BP 118/66; PULSE 66; O2SAT 98; BMI 22.2
--- OUTSIDE RECORDS SUMMARY | 2025-11-08 19:24 | XMS_ITS | Patient Health Record ---
Author Organization [facility] Address [address] [place] [address] Care Team Providers Care Property Management Coordinator Name Role Phone Waleska Moralez Primary Care Provider Unavailab Roland Cevallos Jr Unavailable Reason For Referral Referring Provider First Name Waleska Referring Provider Last Name Nawaf Referring Provider Speciality Internal M edicine Referred Organization [facility] Referred Provider Roland Graff Jr Referred Address [address],[place], [place],[address], Referred Provider Specialty Gastroentero logy General Notes Neha Warren 2024 10:49:15 AM >REQUESTED A [place] REFERRAL FROM DR MORALEZ'S OFFICE FOR VISIT WITH DR GRAFF ON 06-07-25 Referral Priority Routine Medications Medication SIG (Take, Route, Frequency, Duration) Notes Start Date End Date Status Hydroxychloroquine Sulfate 2 00 MG Tablet TAKE 1 TABLET BY MOUTH TWICE A DAY Oral; Duration: 30 Active Tylenol Arthritis Pain Active Naproxen 500 MG Tablet TAKE 1 TABLET BY MOUTH TWICE A DAY NEEDED FOR HEADACHE Oral; Duration: 30 Active MiraLax (colon prep) [...] A DAY NEEDED Oral; Duration: 30 Active Zolpidem Tartrate 10 MG Tablet TAKE 1 TA BLET BY MOUTH EVERY DAY AT BEDTIME NEEDED Oral; Duration: 30 Active ARIPiprazole 2 MG Tablet TAKE 1 TABLET B Y MOUTH EVERY DAY IN THE MORNING DIRECTED Oral; Duration: 30 Active OXcarbazepine 300 MG Tablet TAKE 1 TABLE T IN THE MORNING AND 2 TABLETS AT BEDTIME. Oral; Duration: 30 Active Immunizations Vaccine Route Administration Date Status Comme nts Influenza Unknown 07/26/2019 Administered Social History Tobacco Use: Social History Observation Description Date Details (start date - stop date) Former Smoker NA - NA Social History Tobacco Use: Social Info Question Answer Notes Tobacco Use/Smoking Patient is a former smoker How long has it been since you last smoked? 1-5 years Additional Details Category Social Info Options Details Miscellaneous: Marital status: single Occupation: unemployed Problems Problem Type SNOMED Code ICD Code Onset Dates Problem Status W/U Status Risk Notes Problem Colon cancer screening (061953932) Colon cancer screening (Z12.11) Active confirmed Problem Family History of Cancer of Colon (Situation) (454610074) Family history of colon cancer (Z80.0) Active confirmed Problem Irritable bowel syndrome (93533278) Irritable bowel syndrome with both constipation and diarrhea (K58.2) Active confirmed Encounters Encounter Location Date Provider Diagnosis [facility] [address] [place] [address] 09/27/2025 Roland Grfaf Jr Plan Of Treatment Future Test Test Name Order Date COLONOSCOPY 01/06/2015 COLONOSCOPY 05/11/2020 Next Appt Details Provider Name:Roland poe Jr, 01/24/2026 10:40:00 AM, [address] [place] [address], [address], [place], [address], Insurance Providers Payer Name Payer Address Payer Phone Subscriber Number Group Number Insured Name Patient Relationship to Insured Coverage Start Date Coverage End Date MEDICAID OF [employer] [address] [place] [phone] [id number] DELANEY BAUER Self - patient is the insured Medical (General) History Medical History History ICD Code Sjogren syndrome with lupus depression/anxiety esophageal reflux insomnia Denies SD,DM,CVA,Lung disease,renal dise ase Surgical History Surgery Date(Month/Year) hysterectomy cholecystectomy
== END 2025-11-08 14:58 | disposition home or self-care (01) ==
LOC: HO.RHES 13:24
PROVIDERS: PCP Internal Medicine; Visit Provider Student in an Organized Health Care Education/Training Program
DX: M32.9 Systemic lupus erythematosus, unspecified (principal); M17.0 Bilateral primary osteoarthritis of knee; Z79.899 Other long term (current) drug therapy
CPT/HCPCS: 99214

== ENCOUNTER → 2025-11-08 13:24 | Outpatient (BNVA) | payer MEDICAID, SELFPAY | PROVIDERS: PCP Internal Medicine; Visit Provider Student in an Organized Health Care Education/Training Program | DX: M17.0 Bilateral primary osteoarthritis of knee (principal); M32.9 Systemic lupus erythematosus, unspecified; Z79.899 Other long term (current) drug therapy | CPT/HCPCS: 99212 ==